=== PATIENT | male | born 2000 | race Caucasian/White ===

== ENCOUNTER 2024-12-30 03:54 | Inpatient (IN) | payer OTHER, SELFPAY ==
[2024-12-30] VITALS (30 sets, daily range): BP systolic 118–163; BP diastolic 61–148; PULSE 108; O2SAT 95; BMI 33.5; BMI 33.0
--- NOTE | 2024-12-30 00:26 | ED.GENMED ---
History of Present Illness
General
Chief Complaint: Breathing Problem
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
Exam Limitations: clinical condition
Time Seen by Provider: 12/30/24 00:16
History of Present Illness
History of Present Illness:
24-year-old male presents emergency department with right-sided chest pain and diaphoresis which has been present since 3 PM today. Patient does have a residential drug treatment facility. He used to do crystal meth. He states his last use was in
August.
Review of Systems
Review of Systems
Allergies reviewed?: Yes
All Other Systems: ROS reviewed and negative except as documented in HPI and ROS
Constitutional: Reports no symptoms
EENT: Reports no symptoms
Respiratory: Reports no symptoms
Cardiac: Reports chest pain and diaphoresis
ABD/GI: Reports no symptoms
: Reports no symptoms
Musculoskeletal: Reports no symptoms
Skin: Reports no symptoms
Neurological: Reports no symptoms
Endocrine: Reports no symptoms
Hematologic/Lymphatic: Reports no symptoms
Psychiatric: Reports no symptoms
Phy Exam
General Physical Exam
General Presentation: moderate distress and severe distress
General age: appears older than age
General Skin: warm and diaphoretic
General Habitus: normal
General Mental: alert
General Hydration: appears well hydrated
ENT Exam
ENT Exam: EOMI, pharynx normal, neck supple and normocephalic
Eye Exam
Eye Exam: PERRL, cornea clear and conjunctiva normal
Cardiovascular Exam
Cardiovascular Exam: regular rate/rhythm, no edema, no murmur and normal peripheral pulses
Pulmonary Exam
Pulmonary Exam: lungs clear, no respiratory distress, no rales, no crackles, no rhonchi, no stridor, no wheezing and no cough
Gastrointestinal Exam
Gastrointestinal Exam: normal bowel sounds, non tender, soft, no organomegaly, no pulsatile mass and non distended
Neurological Exam
Neurological Exam: alert, oriented x3, no motor deficits and speech normal
Musculoskeletal Exam
Musculoskeletal Exam: full ROM and no edema
Skin Exam
Skin Exam: normal color, warm/dry, no rash and no petechia
Psychiatric Exam
Psychiatric Exam: normal mood/affect
Sepsis
Sepsis Screening
Sepsis Assessment: Severe Sepsis
Sepsis Screening: Lactate >2mmol/L and Worsening O2 Saturation
Sepsis Screen
Sepsis Screen: Severe Sepsis
Date: 12/30/24
Time: 03:03
Course
Orders/Labs/Results
Orders:
Orders
12/30/24 00:19
Electrocardiogram (*1) Urgent
Reason for Study: Chest Pain
12/30/24 00:20
EKG- Treatment ONCE
12/30/24 00:23
CR Chest Portable - 1 View Urgent
Comment:
Reason For Exam: cp
Reason Study Needs to be Portable: Patient Unstable
12/30/24 00:26
Complete Blood Count/With Diff Urgent
Comprehensive Metabolic Panel Urgent
Lipase Urgent
Comment: ADD ON
Troponin I Urgent
12/30/24 00:34
CT Pe/abd/pel W Urgent
Reason For Exam: dyspnea, hypoxia, right cp
12/30/24 01:16
Electrocardiogram (*1) Urgent
Reason for Study: Bradycardia / Tachycardia
EKG- Treatment ONCE
12/30/24 01:28
Urinalysis Reflex To Culture Urgent
12/30/24 01:31
Add On- LAB Urgent
Tests Added?: lipase
Urine Drug Abuse Screen Urgent
12/30/24 01:52
Morphine Sulfate 4 mg .ROUTE .STK-MED ONE
12/30/24 01:53
Morphine Sulfate 4 mg IV NOW STA
12/30/24 02:03
Piperacillin/Tazo 4.5 Gram [Zosyn] 4.5 gram in 100 ml IV NOW
12/30/24 02:16
0.9% Sodium Chloride 1000 ml [Nss] 2,000 ml IV BOLUS
12/30/24 02:24
COVID-19 Antigen Urgent
Source: Nasal Swab
Lactic Acid Q4H
Comment: CANCEL 2nd LACTIC ACID IF 1st LACTIC ACID IS LESS THAN 2
Blood Culture Urgent
BUD Source: Blood/Venous
Specimen Description:
Influenza A+B Rapid Molecular Urgent
BUD Source: Nasal Swab
Specimen Description:
12/30/24 02:46
MRSA Screen Routine
BUD Source: Nose
Specimen Description:
12/30/24 02:48
Blood Culture Urgent
BUD Source: Blood/Venous
Specimen Description:
12/30/24 02:49
Admit/Transfer Patient As Directed
Co-Sign Provider:
Level of Care: Inpatient admission
Assign to:: IMU- Intermediate Care
Physician / Group: hospitalist
Diagnosis: necrotizing pneumonia
Reason for Hospitalization: pneumonia with hypoxia
Expected length of stay greater than two midnights?: Yes
ELOS- Estimated Length of Stay in days: 2
I certify the patient meets the requirements for IP care: Yes
PRN Pain Medication Management As Directed
May give lesser potent ordered pain med per pt: Yes
preference::
Protocol:: Medication orders for pain may be administered in a
manner that supports deferring to patient preference
when the pt is:
- Requesting an ordered lesser potent pain medication.
Least to most potent pain medications are defined
as: acetaminophen < NSAID < tramadol < opioids
(morphine, oxycodone, hydromorphone).
- Requesting a lesser dose of the same medication IF
ORDERED.
- Requesting a less intrusive route of administration
if both routes are prescribed by the provider (PO <
IV).
12/30/24 02:50
Code Status As Directed
Resuscitation Status: Full Code
12/30/24 06:15
Lactic Acid Q4H
Comment: CANCEL 2nd LACTIC ACID IF 1st LACTIC ACID IS LESS THAN 2
Abnormal Lab Results
12/30/24 12/30/24
00: 02:24
WBC 21.8 H 10^3/uL
(4.8-10.8)
RBC 4.68 L 10^6/uL
(4.70-6.10)
Plt Count 695 H 10^3/uL
(130-400)
Abs Immat Gran (auto) 1.2 H 10^3/uL
(0-0.05)
Absolute Neuts (auto) 17.3 H 10^3/uL
(1.4-6.5)
Absolute Monos (auto) 1.3 H 10^3/uL
(0.1-0.6)
Immature Gran % 5.4 H %
(0-0.5)
Neutrophils % 79.1 H %
(42.2-75.2)
Lymphocytes % 8.4 L %
(20.5-51.1)
Creatinine 0.6 L mg/dL
(0.7-1.3)
Glucose 246 H mg/dl
(70-99)
Lactic Acid 2.8 H mmol/L
(0.7-2.0)
ALT 187 H U/L
(0-50)
Alkaline Phosphatase 129 H U/L
(38-126)
12/30/24 00:26
12/30/24 00:26
Vital Signs
Initial and Last Documented VS:
Initial Vital Signs
Pulse Resp BP
87 25 159/94
12/30/24 00:18 12/30/24 00:18 12/30/24 00:18
Last Documented Vital Signs
Temp Pulse Resp BP Pulse Ox
99.2 F 124 47 142/86 95
12/30/24 02:11 12/30/24 02:45 12/30/24 02:45 12/30/24 02:00 12/30/24 02:45
MDM/Problems Addressed
Differential Diagnosis Includes:
Pneumonia, pulmonary embolus, cardiovascular issues, sepsis, septic shock, flu, COVID
MDM/Problems Addressed:
24-year-old male with right lower chest pain and difficulty breathing
Chronic conditions affecting care:
In recovery for crystal meth abuse
*Radiology
Radiology exam reviewed: radiology read reviewed
*Pulse Oximetry
Patient hypoxic: yes (89% on room air upon arrival)
*EKG
Interpreted by ED Provider?: Yes
EKG Intrepretation Date: 12/30/24
Interpretation: normal
Comparison EKG: no comparison EKG present
Heart Rate: 98
Rate: tachycardiac
Rhythm: sinus
Casey: left axis deviation
Interval: normal interval
QRS Pattern: normal QRS
*Tower Loader Operator Interpretation
Rate: tachycardiac
Heart Rate: 104
Rhythm: sinus and sinus tachycardia
*Critical Care Note
Total Time (30-74mins, 75-104mins- exclusive of procedures): 35
Update Note
Update Note:
Tylenol will not be given based on his liver function tests
ED Attending Note
-
Portions of this chart may have been created with voice recognition software.� Occasional wrong word or��sound alike� substitutions may have occurred due to the inherent limitations of voice recognition software.
Discharge Plan
Departure
Patient Disposition: Admit
Date of Disposition: 12/30/24
Time of Disposition: 03:03
Admit to: IMU
Presentation/result/management discussed w/ accepting MD/DO: Hospitalist
Condition: Serious
Discharge Problem:
Right lower lobe pneumonia, Sepsis
Prescriptions:
No Action
ropinirole 1 mg Tablet
1 mg PO BID
naltrexone 50 mg Tablet
50 mg PO DAILY
prednisone 20 mg Tablet
20 mg PO DAILY
benzonatate 100 mg Capsule
100 mg PO TID PRN (Reason: cough)
aripiprazole 10 mg Tablet
10 mg PO DAILY
atomoxetine [Strattera] 40 mg Capsule
40 mg PO DAILY
quetiapine [Seroquel] 50 mg Tablet
50 mg PO HS PRN (Reason: insomnia)
melatonin 10 mg Tablet
10 mg PO HS PRN (Reason: sleep)
Referrals:
Jesús Leon CRNP [Family Provider] -
Interventions
Interventions:
*General Assessment Last Done: 12/30/24 00:20
*Neglect/Abuse Screening Last Done: 12/30/24 00:24
*ED- Fall Risk Assessment Last Done: 12/30/24 00:24
*ED COVID-19 Vaccine History Last Done: 12/30/24 00:24
ED- Cardiac Assessment Last Done: 12/30/24 02:13
ED- Pulmonary Assessment Last Done: 12/30/24 02:13
Discharge Date and Time
Print Language: UGANDAN
[2024-12-30 00:43] LABS: Hematocrit 39.7 % (39.0-52.0); Hemoglobin 13.8 g/dL (13.0-18.0); Mean Corp Hgb Conc. 34.8 g/dL (33.0-37.0); Mean Corpuscular Hgb 29.5 pg (27.0-31.0); Mean Corpuscular Volume 84.8 fL (80.0-94.0); Mean Platelet Volume 9.5 fL (7.4-10.4); Platelet Count 695 10^3/uL (130-400); Red Blood Cell Count 4.68 10^6/uL (4.70-6.10); Red Cell Dist. Width 12.7 % (11.5-14.5); White Blood Cell Count 21.8 10^3/uL (4.8-10.8)
[2024-12-30 00:47] LABS: ALT (SGPT) 187 U/L (0-50); AST (SGOT) 55 U/L (17-59); Albumin 3.9 g/dl (3.5-5.0); Alkaline Phosphatase 129 U/L (38-126); Blood Urea Nitrogen 14 mg/dl (9-20); Calcium 9.2 mg/dl (8.4-10.2); Carbon Dioxide 22 mmol/L (22-30); Chloride 102 mmol/L (98-107); Estimated Creatinine Clearance > 125 ml/min; Glucose 246 mg/dl (70-99); Potassium 4.8 mmol/L (3.5-5.1); Sodium 136 mmol/L (135-145); Total Bilirubin 0.8 mg/dl (0.2-1.3); eGFR > 60.00
[2024-12-30 00:58] LABS: Troponin I < 0.012 ng/ml
[2024-12-30 01:28] LABS: % Basophils 0.6 % (0-2); % Eosinophils 0.6 % (0-6); % Immature Granulocytes 5.4 % (0-0.5); % Lymphocytes 8.4 % (20.5-51.1); % Monocytes 5.9 % (1.7-9.3); % Neutrophils 79.1 % (42.2-75.2); Absolute Basophils 0.1 10^3/uL (0-0.2); Absolute Eosinophils 0.1 10^3/uL (0-0.7); Absolute Immature Granulocytes 1.2 10^3/uL (0-0.05); Absolute Lymphocytes 1.8 10^3/uL (1.2-3.4); Absolute Monocytes 1.3 10^3/uL (0.1-0.6); Absolute Neutrophils 17.3 10^3/uL (1.4-6.5); Nucleated Red Blood Cells % 0 % (-)
[2024-12-30] MEDS: MORPHINE SULFATE 4 MG IV ×2 (01:53→10:46)
[2024-12-30 02:16] LABS: Lipase 97 U/L (23-300)
[2024-12-30] MEDS: ZOSYN 100 IV (02:28)
[2024-12-30] MEDS: NSS 2000 IV (02:31)
--- NOTE | 2024-12-30 02:37 | HPS.HSE ---
Family Physician
-
Family Physician: PEGGY Lambert
Chief Complaint
-
Shortness of breath
History of Present Illness
This is a 24-year-old male with past medical history of drug abuse currently in rehab and has been drug free for the last 4 months presents to the emergency department with worsening shortness of breath that started today.
Patient reports about 5 to 6 days of cough that is productive of yellow sputum. URIs. He reports numerous sick contacts at his [facility] with similar symptoms. Patient reported been doing okay up until today when he started having shortness of
breath as well as chest pain with inspiration and coughing. He reports the pain is sharp and localized to your right posterior lower chest. He denies any nausea or vomiting. Patient denies any history of COPD or asthma but reports regular tobacco
use. He denies any history of IV drug use. His drug of choice was methamphetamine. He denies any psychiatric history. He denies alcohol use. Patient denies any lower extremity swelling calf tenderness numbness or tingling.
In the emergency department he was afebrile, blood pressure was stable at 140/86 with a pulse rate of 130, oxygen saturation was 95% on 2 L. He is quite tachypneic with respiratory rates in the 30s and pursed lip breathing. X-ray shows a right
lower lobe infiltrate. CBC notable for a white count of 21.8 with 5% immature cells, normal hemoglobin and platelet counts. Electrolytes BUN and creatinine were normal. Glucose was slightly elevated at 240. He had mild elevation in ALT to 187
and alk phos to 129. ECG with sinus tachycardia. Troponin negative.
Medical History
Past Medical History
Past Medical History: Reports Other (History of drug abuse with amphetamine dependence, currently in rehab and last use was in August.)
Past Surgical History: Reports None
Social History
Tobacco: Smoker
Alcohol: None
Drug: Former User
Personal: Single
Living: Other (retirement)
Employment: Not Employed
Family History
Family History: Early CAD (Father with CAD who had [place] and at age 50.)
Allergies / Home Medications
Allergies reflects when Allergies were last updated in [facility].
Home Medications with original date entered in [facility]
Allergy/Medication List:
Allergies
Allergy/AdvReac Type Severity Reaction Status Date / Time
No Known Allergies Allergy Unverified 12/30/24 00:19
Home Medications
aripiprazole 10 mg tablet 10 mg PO DAILY 12/30/24
atomoxetine 40 mg capsule (Strattera) 40 mg PO DAILY 12/30/24
benzonatate 100 mg capsule 100 mg PO TID PRN cough 12/30/24
melatonin 10 mg tablet 10 mg PO HS PRN sleep 12/30/24
naltrexone 50 mg tablet 50 mg PO DAILY 12/30/24
prednisone 20 mg tablet 20 mg PO DAILY 12/30/24
quetiapine 50 mg tablet (Seroquel) 50 mg PO HS PRN insomnia 12/30/24
ropinirole 1 mg tablet 1 mg PO BID 12/30/24
Review of Systems
-
History Source: Patient
Constitutional: Reports No Symptoms
Respiratory: Reports Cough and Trouble Breathing
Cardiac: Reports No Symptoms
Abdomen/GI: Reports No Symptoms
: Reports No Symptoms
Musculoskeletal: Reports No Symptoms
Skin: Reports No Symptoms
Neurological: Reports No Symptoms
Endocrine: Reports No Symptoms
Hematologic/Lymphatic: Reports No Symptoms
Psych: Reports No Symptoms
Physical Exam
Vital Signs
Vital Signs
Temp Pulse Resp BP Pulse Ox
99.2 F 123 56 142/86 96
12/30/24 02:11 12/30/24 02:00 12/30/24 02:00 12/30/24 02:00 12/30/24 02:00
Physical Exam
General: Well Developed, Well Nourished and Respiratory Distress
HEENT: NormoCephalic, Anicteric, Moist mucous membranes and Atraumatic
Respiratory: Clear and Accessory Resp Muscle Use
Cardiac: S1/S2 and Tachycardia
Breast: Deferred by me
GI: Soft, Non Tender, Non Distended and Normal Bowel Sounds
Rectal: Deferred by Provider
Genito-urinary: Deferred by me
Musculoskeletal: No Clubbing, No Cyanosis and No Edema
Skin: Warm
Neuro: AO x 3 and Nonfocal/grossly intact
Hematologic/Lymphatic: No Lymphadenopathy
Psych: Calm
Laboratory Results
-
12/30/24 00:26
12/30/24:
Laboratory Results
Total Bilirubin 0.8 mg/dl (0.2-1.3) 12/30/24:
AST 55 U/L (17-59) 12/30/24:
ALT 187 U/L (0-50) H 12/30/24:
Alkaline Phosphatase 129 U/L (38-126) H 12/30/24:
Troponin I < 0.012 ng/ml 12/30/24 00:
Lipase 97 U/L (23-300) 12/30/24 00:
Data Reviewed
-
Diagnostic Radiology: Image Personally Visualized and interpreted
CT Scan: Report Reviewed by me
Medical Tests (Nuc Med, Echo, EKG etc): Image Personally Visualized and interpreted
Lab Data: Labs Reviewed by me
Old Records: Reviewed
Impression/Plan
-
IMPRESSION:
24-year-old who was in rehab for meth presents to the emergency department with shortness of breath, hypoxia and chest pain. Imaging shows a right lower lobe consolidation. He does have increased work of breathing and diaphoretic. Labs notable
for leukocytosis of 21,000 with immature cells. Hemodynamically stable. Electrolyte BUN/creatinine were normal. He has a mild elevation in ALT and alk phos only. Overall picture consistent with severe community-acquired pneumonia. Risk factors
include living in [facility]. He has no history of IV drug use. CT scan concerning for
PLAN:
1. Community acquired pneumonia - Necrotizing pneumonia. Hypoxic, RLL infiltrates, leukocytosis with left shift and bands. Small pneumothorax. Very high work of breathing with rapid shallow breathing likely from pain and splinting. Symptoms began
a week ago and cannot rule out a post-viral pneumonia
- admit to [facility]
- blood cultures and respiratory panel
- getting legionella urinary ag
- mrsa swab
- Unasyn + Vancomycin
- supportive measures with oxygen, nebs antitussive and pain control with incentive spirometry.
- rule out PE
- will monitor for complications of pneumonia
- Pulm consultation
2. H/O Methamphethamine use
- conitnue abilify, ropinirole and naltrexone.
- continue atomoxetine
3. Transaminitis - Elevated ALT only. Denies any ETOH. Has right sided lower thoracic pain but not abdominal pain
- check ruq u/s rule out cholelithiasis/choledocholithiasis
- check cpk, trend lfts
- check lipid panel
DVT PPX - lovenox sq
Code status - full code
[2024-12-30 02:55] LABS: Lactic Acid 2.8 mmol/L (0.7-2.0)
[2024-12-30] MEDS: TORADOL 15 MG IV ×3 (03:10→13:43)
[2024-12-30 03:36] LABS: COVID-19 Antigen Negative (Negative)
[2024-12-30 04:18] LABS: Urine Albumin 2+ (Neg - Trace); Urine Bilirubin Negative (Negative); Urine Character Clear (Clear); Urine Color Yellow; Urine Glucose Negative (Negative); Urine Ketone Negative (Negative); Urine Leukocyte Negative (Negative); Urine Nitrite Negative (Negative); Urine Occult Blood Negative (Negative); Urine Specific Gravity 1.015 (<1.030); Urine Urobilinogen 1+ (Neg - 1+)
[2024-12-30 04:39] LABS: Amphetamines Negative (Negative); Barbiturates Negative (Negative); Benzodiazepines Negative (Negative); Buprenorphine Negative (Negative); Marijuana Negative (Negative); Methadone Negative (Negative); Methamphetamines Negative (Negative); Phencyclidine Negative (Negative)
[2024-12-30 04:40] LABS: Cocaine Negative (Negative); Opiates Positive (Negative); Tricyclic Antidepressants Negative (Negative)
[2024-12-30 04:58] LABS: Fentanyl, Urine Negative (Negative)
[2024-12-30 05:02] LABS: Urine Amorphous Seen
[2024-12-30 05:13] LABS: Urine Bacteria Few (Negative)
[2024-12-30] MEDS: TYLENOL 650 MG PO ×3 (05:14→15:56)
[2024-12-30 05:15] LABS: Hematocrit 35.9 % (39.0-52.0); Hemoglobin 12.5 g/dL (13.0-18.0); Mean Corp Hgb Conc. 34.8 g/dL (33.0-37.0); Mean Corpuscular Hgb 29.6 pg (27.0-31.0); Mean Corpuscular Volume 84.9 fL (80.0-94.0); Mean Platelet Volume 9.3 fL (7.4-10.4); Platelet Count 559 10^3/uL (130-400); Red Blood Cell Count 4.23 10^6/uL (4.70-6.10); Red Cell Dist. Width 12.8 % (11.5-14.5)
[2024-12-30] MEDS: NSS 1000 IV ×2 (05:15→15:57)
[2024-12-30] MEDS: ROBITUSSIN DM 10 ML PO ×2 (05:15→16:25)
[2024-12-30 05:47] LABS: Lactic Acid 1.8 mmol/L (0.7-2.0)
[2024-12-30 05:49] LABS: Blood Urea Nitrogen 12 mg/dl (9-20); Calcium 8.6 mg/dl (8.4-10.2); Carbon Dioxide 20 mmol/L (22-30); Chloride 107 mmol/L (98-107); Estimated Creatinine Clearance > 125 ml/min; Glucose 121 mg/dl (70-99); Potassium 4.3 mmol/L (3.5-5.1); Sodium 139 mmol/L (135-145); eGFR > 60.00
[2024-12-30 05:59] LABS: ALT (SGPT) 147 U/L (0-50); AST (SGOT) 37 U/L (17-59); Albumin 3.5 g/dl (3.5-5.0); Alkaline Phosphatase 110 U/L (38-126); HDL Cholesterol 21 mg/dl; LDL Cholesterol, Calculated 112 mg/dl; Total Bilirubin 0.7 mg/dl (0.2-1.3); Total Cholesterol 151 mg/dl (50-199); Triglyceride 93 mg/dl (10-149); Very Low Density Lipoprotein 18 mg/dl (0-30)
[2024-12-30] MEDS: VANCOCIN 540 MG IV (06:17)
--- NOTE | 2024-12-30 07:16 | PTCARENOTE ---
Pt admit from ED to ICU ~0500. Pt diaphoretic, tachypneic, and tachycardic. RR 30-50. AAOx4. Labs drawn. 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 Pt c/o pain only on cough about 3/10. PRN tylenol - see MAR. Educated pt on plan of care, pt verbalizes
understanding. Oriented pt to unit. NSS and abx infusing as ordered.
[2024-12-30] MEDS: MUCINEX 600 MG PO ×2 (07:43→20:21)
[2024-12-30] MEDS: REQUIP 1 MG PO ×2 (07:43→20:21)
[2024-12-30] MEDS: ABILIFY 10 MG PO (07:43)
[2024-12-30] MEDS: NICODERM TRANSDERMAL 21 MG TRANSDERM (07:43)
[2024-12-30] MEDS: COLACE PO ×3 (07:43→20:21)
--- NOTE | 2024-12-30 08:16 | CON.PUL ---
Addendum entered and electronically signed by Jamal Ventura MD 12/30/24 16:28:
Patient reexamined later in the day around 4 PM. Saturating well however continues to be somewhat tachypneic with respiratory rate in the low 30s.
- Considering severity of pneumonia, add prednisone daily daily for 5 days
- Follow-up CT chest in a.m. to evaluate for any developing pleural effusion
Original Note:
Consultation
Consultation Request
Date/Time Consultation Requested: 12/30/2024
Date/Time Consultation Performed: 12/30/2024
Requesting Provider: Mehul Merritt
Performing Provider: Jamal Ventura
Reason for Consultation: Necrotizing pneumonia
Medical History
-
Chief Complaint: Cough. pleuritic pain
History of Present Illness:
Patient is a very pleasant 24-year-old gentleman with history of drug use in the past, reportedly sober over the last 4 months who presents to emergency room from a rehab facility with worsening shortness of breath. Patient reports about 5 to 6
days of cough with yellowish expectoration. Reports some flulike symptoms prior to that. Does report history of some sick contacts at the facility where he lives. In the emergency room he also was noted to have some pleuritic discomfort on the
right side. He had a CT performed which was suggestive of necrotizing pneumonia in the right lower lobe along with small amount of gas within pleural effusion. Patient was admitted to the hospital and started on IV antibiotics. Pulmonary
consultation was requested for further input.
Patient denies any history of drug use in the last 4 months. No reported history of syncope per patient. No episodes of aspiration, nausea vomiting etc.
Past Medical History: Reports Other (History of drug abuse with amphetamine dependence, currently in rehab and last use was in August.)
Past Surgical History: Reports None
Social History
Tobacco: Smoker. Reported history of vaping almost daily.
Alcohol: None
Drug: Former User
Personal: Single
Living: Other (residential)
Employment: Not Employed
Family History
Family History: Early CAD (Father with CAD who had PR and at age 50.)
Allergies / Home Medications
Allergies
Allergy/AdvReac Type Severity Reaction Status Date / Time
No Known Allergies Allergy Unverified 12/30/24 00:19
Home Medications
�Medication �Instructions �Recorded �Confirmed �Last Taken �Type
aripiprazole 10 mg tablet 10 mg PO DAILY 12/30/24 12/30/24 Unknown History
atomoxetine 40 mg capsule 40 mg PO DAILY 12/30/24 12/30/24 Unknown History
(Strattera)
benzonatate 100 mg capsule 100 mg PO TID PRN cough 12/30/24 12/30/24 Unknown History
melatonin 10 mg tablet 10 mg PO HS PRN sleep 12/30/24 12/30/24 Unknown History
naltrexone 50 mg tablet 50 mg PO DAILY 12/30/24 12/30/24 Unknown History
prednisone 20 mg tablet 20 mg PO DAILY 12/30/24 12/30/24 Unknown History
quetiapine 50 mg tablet (Seroquel) 50 mg PO HS PRN insomnia 12/30/24 12/30/24 Unknown History
ropinirole 1 mg tablet 1 mg PO BID 12/30/24 12/30/24 Unknown History
Review of Systems
-
Hematologic/Lymphatic: Other (All 14 systems reviewed and negative except as stated above in the history of present illness. Reported right-sided pleuritic chest discomfort and cough.)
Vitals / Labs / Diagnostic Testing
Vital Signs
Temp Pulse Resp BP Pulse Ox
99.7 F 98 34 124/68 96
12/30/24 05:30 12/30/24 06:30 12/30/24 06:30 12/30/24 06:30 12/30/24 06:43
Lab Data
12/30/24 04:58
12/30/24 04:58
Microbiology
12/30/24 02:24 Nasal Swab Influenza Types A & B (DAVE) - Final
Negative for Influenza A & B, NAAT
Negative results must be combined with clinical observations
and patient history.
Nucleic Acid Amplification test (NAAT)performed on the
[employer] NOW platform.
Diagnostic Testing:
Physical Exam
-
HEENT: Normocephalic
Cardiovascular: S1/S2
Respiratory: Clear and Other (Decreased air entry in the right lower lobe, otherwise unremarkable.)
GI: Soft and Non Distended
Neurology: Awake and Alert
Skin: Warm
General: Comfortable
Assessment
-
#1. Right lower lobe necrotizing pneumonia. Also noted trace right effusion with some gas within it. No definitive pneumothorax noted. Patient denies any episode of nausea, vomiting or syncope. Aspiration pneumonia is certainly a concern with
prior history of drug use as well as location of the infiltrate.
- Check sputum cultures, Legionella and strep pneumo antigen.
- Influenza A, B-, COVID-19 screen negative
- Continue IV vancomycin and Unasyn. Check nasal MRSA screen
#2. Right sided pleural effusion, para-pneumonic vs developing empyema with traces of air noted on CT. Collection is fairly small on CT. No definitive pneumothorax
- CXR today shows small layering effusion,
- I performed a bedside [id number] ultrasound, only a trace pleural effusion noted on the right side with extensive phlegmon. Not enough fluid for safe drainage right now. But I suspect patient might develop an enlarging parapneumonic effusion
versus empyema, will proceed with daily imaging and [id number] ultrasound. If enlarges, will place chest tube.
- Follow-up chest x-ray and POCUS in a.m.
- Test for HIV
- Add Toradol for pleuritic discomfort
Pulmonary team will follow.
Total time spent on this consultation/encounter __81__ minutes which includes review of history, physical exam, medications, laboratory data, personal review of imaging, extensive review of outpatient records, discussion with care team and
respiratory therapy.
Data:
CT-PE 12/2024: 1. No large central pulmonary embolism. Evaluation of peripheral pulmonary arteries is limited by patient respiratory motion artifact.
2. Severe right lower lobe pneumonia, with areas of internal necrosis and cavitation.
3. Small associated right pleural effusion. Small amount of gas within the right pleural effusion.
4. Right hilar lymphadenopathy, likely reactive.
5. Evidence of prior granulomatous disease.
--- NOTE | 2024-12-30 08:51 | PHA.VAN.IN ---
Addendum entered and electronically signed by Anuradha Sigala ([place]) [facility] 12/30/24 09:02:
Correction on starting time for Maintenance Regimen: Vanco 1250mg Q8H starting 2200
Original Note:
Assessment
- Assessment
Renal Function: Appears similar to baseline (0.6)
Maximum Temperature: 103
Concomitant Antimicrobials: Ampicillin/Sulbactam
AUC Dosing Plan
- Dosing Variables
Dosing Weight (kg): 107.4
Dosing CrCl (ml/min): 125
Vd coefficient (L/kg): 0.6
- Empiric Dosing
Initial / Loading Dose: Vanco 2000mg loading administered 12/30/24 0617
Maintenance Regimen: Vanco 1250mg Q8H Starting 1800
Estimated AUC (mcg*h/mL): 582
Estimated Peak (mcg*h/mL): 33.5
Estimated Trough (mcg/ml): 16.6
Estimated Half Life (H): 6.4
Based on the patient's history, may not follow population PK
- Monitoring
No levels ordered at this time: Consider in the next few days
Pharmacokinetics Vancomycin I
- -
Patient Age: 24
Patient Sex: Male
Vancomycin Day #: 1
Indication: Pulmonary/Respiratory
Requesting Provider: Shaina
Pertinent Antimicrobial Allergies:
No known drug allergies
Height / Weight:
Height 5 ft 11 in
Actual Weight 107.4 kg
- Vital Signs / Lab Results
Temp Pulse Resp BP Pulse Ox
99.7 F 98 34 124/68 96
12/30/24 05:30 12/30/24 06:30 12/30/24 06:30 12/30/24 06:30 12/30/24 06:43
Lab Results - Hematology
12/30/24 12/30/24
00:26 04:58
WBC 21.8 H 23.0 H
Lab Results - Chemistry
12/30/24 12/30/24 12/30/24
00:26 04:58 06:00
BUN 14 12
Creatinine 0.6 L 0.6 L
Estimated Creat Clear > 125 > 125
Albumin 3.9 3.5 Cancelled
12/30/24 12/30/24
02:24 04:59
Lactic Acid 2.8 H 1.8
Lab Results - Urine
12/30/24
04:02
Urine Nitrite (Reflex) Negative
Leukocyte Esterase Rfl Negative
Urine WBC (Reflex) 6-10
Ur Squamous Epith Cells 11-15
Urine Bacteria (Reflex) Few A
Microbiology Results
12/30/24 07:52 Legionella Urinary Antigen - Final
Urine Negative for Legionella pneumophila Serogroup 1 antigen.
A negative result does not rule out the possiblity of
Legionella infection due to other serogroups or species of
Legionella. Clinical correlation is recommended.
Streptococcus pneumoniae Antigen (M - Final
Negative for Streptococcus pneumoniae antigen.
A negative result does not exclude infection with
Streptococcus pneumoniae. Clinical correlation is
recommended.
12/30/24 02:24 Influenza Types A & B (DAVE) - Final
Nasal Swab Negative for Influenza A & B, NAAT
Negative results must be combined with clinical observations
and patient history.
Nucleic Acid Amplification test (NAAT)performed on the
[employer] platform.
[2024-12-30] MEDS: UNASYN IV ×3 (08:55→20:21)
--- NOTE | 2024-12-30 09:07 | PTCARENOTE ---
report received, assessments per work list. Dr Ventura at bedside to assess patient. patient c/o pain, tachypneic. resp rate 30-50. coarse breath sounds left, very diminished right lung, absent base. cough, moist non productive. increased pain with
coughing and deep breathing. medicated with toradol with some relief. patient affect flat. oriented. abdomen soft, denies nausea. using urinal angelo urine. call moser in reach. reviewed plan of care
--- NOTE | 2024-12-30 09:20 | W.PN.HOSP.TC ---
Today's Communication/Plan
-
IV antibiotics.
Assessment / Plan
Assessment / Plan
Physical exam:
General: Acutely ill. Toxic appearance.
HEENT: Normocephalic, Atraumatic and Moist Mucous Membranes
Respiratory: Decreased breath sounds on the right side; Negative Wheezes, Rales or Rhonchi
Cardiac: Regular Rhythm, tachycardic, and S1/S2
GI: Soft, Nontender and Nondistended
Musculoskeletal: No Clubbing, No Cyanosis and No Edema
Neuro: Awake, Alert and Oriented, no neurological deficits
Psych: Calm
A/P:
Sepsis due to pneumonia:
Patient with tachycardia, tachypnea, leukocytosis, increased lactate. Source is necrotizing pneumonia and rule out empyema.
IV fluid
IV antibiotics
Monitor clinical progress
Right lower lobe necrotizing pneumonia versus aspiration pneumonia:
Continue broad-spectrum antibiotics
Check sputum cultures, Legionella antigen, strep
Check MRSA screen
HIV testing
Bronchodilators as needed
Pain control
Right-sided pleural effusion concerns for empyema versus parapneumonic effusion:
Monitor serial ultrasound
If enlarged pleural fluid plan for thoracentesis and/or chest tube
History of polysubstance abuse:
On atomoxetine and Requip
On Abilify
On Seroquel as needed
Nicotine use disorder:
On nicotine patch
DVT prophylaxis:
Lovenox SQ
CODE STATUS:
Full code
Total Critical Care Time__45___ minutes. I was immediately available to the patient and staff. I personally examined, reviewed labs, diagnostic images/reports, interpretations, treatment plans, discussed patient care with other providers and
family or caregivers (if patient is unable to make decisions), entered orders as appropriate and documented the medical record.
Anticipated Discharge: > 48 hours
Subjective/Interval History
-
Date of Service: December 30, 2024
Patient hypoxic, tachycardic, short of breath, febrile. He does have cough with yellow sputum production.
Objective Data
-
Labs:
Laboratory Results
12/30/24 12/30/24 12/30/24
00:26 04:58 06:00
WBC 21.8 H 23.0 H
Hgb 13.8 12.5 L
Hct 39.7 35.9 L
Plt Count 695 H 559 H
Sodium 136 139
Potassium 4.8 4.3
Chloride 102 107
Carbon Dioxide 22 20 L
BUN 14 12
Creatinine 0.6 L 0.6 L
Glucose 246 H 121 H
Calcium 9.2 8.6
Total Bilirubin 0.8 0.7 Cancelled
AST 55 37 Cancelled
ALT 187 H 147 H Cancelled
Alkaline Phosphatase 129 H 110 Cancelled
Vital Signs:
Vital Signs
Temp Pulse Resp BP Pulse Ox
100.5 F H 101 43 123/73 96
12/30/24 07:30 12/30/24 09:00 12/30/24 09:00 12/30/24 09:00 12/30/24 09:00
I&O
12/29/24 12/30/24 12/31/24
06:59 06:59 06:59
Intake Total 900 / 900
Output Total 300 / 300 300 / 300
Balance -300 / -300 600 / 600
--- NOTE | 2024-12-30 11:41 | PTCARENOTE ---
patient reassessed. temp 103.1. tylenol administered. abdominal ultrasound completed. expectorating thick yellow sputum. remains tachypneic, respiratory rate 50's with exertions. 30's at rest.
--- NOTE | 2024-12-30 13:42 | CM ---
CM following re: discharge planning.
Reviewed pt's chart, met with pt.
Pt is a 24 year old male, admitted with primary dx of Community acquired pneumonia - Necrotizing pneumonia.
Pt reports he lives at [facility], has been living there for 4 months, has 2 children, spouse. 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 Pt reports he will return back to sober house
with resumptions of IOP at [facility]. Pt stated that recovery house servant Juan Carlos will [id number] at discharge.
PCP: Acosta Leon
Pharmacy: [facility]
D/C plan: return back to [facility].
CM will follow with discharge plan updates as hospitalization progresses
[2024-12-30] MEDS: DELTASONE 40 MG PO (15:56)
[2024-12-30] MEDS: LOVENOX 40 MG SC (16:25)
--- NOTE | 2024-12-30 16:59 | PTCARENOTE ---
patient reassessed. febrile, tylenol and pain medication administration per nov. assisted with pm care. poor po intake. remains tachypneic, shallow respirations. continues to expectorate large amount thick yellow sputum. Dr Ventura at bedside to
reassess via ultrasound. updated patient mother on phone. coughing and deep breathing encouraged. oob to chair. call moser in reach
[2024-12-30] MEDS: VANCOCIN 275 MG IV (23:10)
--- NOTE | 2024-12-30 23:47 | PTCARENOTE ---
Pt received at 19:00, drowsy but easily arousbale to verbal stimuli. SR-stach, palpable pulses. 2L NC, pulse ox 94%. RR mid 20s - 30s. Moist weak cough, states SOB has improved. +bowel sounds, no BM. Voids in urinal, yellow urine. Safe environment
maintained, call moser within reach, plan of care ongoing.
[2024-12-31] VITALS (12 sets, daily range): BP systolic 123–154; BP diastolic 65–90; BMI 33.2
[2024-12-31] MEDS: MORPHINE SULFATE 4 MG IV ×3 (00:51→20:42)
--- NOTE | 2024-12-31 00:58 | PTCARENOTE ---
Pt c/o pain 8/10 with coughing in chest and back, RR increased to the 40s. Pt given PRN morphine, RR now low 30s and patient resting comfortably in the bed.
[2024-12-31] MEDS: NSS 1000 IV (02:16)
[2024-12-31] MEDS: TORADOL 15 MG IV ×3 (02:16→18:01)
[2024-12-31] MEDS: UNASYN IV ×4 (02:17→20:31)
[2024-12-31 04:15] LABS: % Basophils 0.4 % (0-2); % Eosinophils 0.2 % (0-6); % Lymphocytes 4.6 % (20.5-51.1); % Monocytes 5.5 % (1.7-9.3); % Neutrophils 86.3 % (42.2-75.2); Absolute Basophils 0.1 10^3/uL (0-0.2); Absolute Eosinophils 0.1 10^3/uL (0-0.7); Absolute Immature Granulocytes 1.1 10^3/uL (0-0.05); Absolute Lymphocytes 1.7 10^3/uL (1.2-3.4); Absolute Neutrophils 31.4 10^3/uL (1.4-6.5); Hematocrit 35.1 % (39.0-52.0); Hemoglobin 11.8 g/dL (13.0-18.0); Mean Corp Hgb Conc. 33.6 g/dL (33.0-37.0); Mean Corpuscular Hgb 28.7 pg (27.0-31.0); Mean Corpuscular Volume 85.4 fL (80.0-94.0); Mean Platelet Volume 8.9 fL (7.4-10.4); Nucleated Red Blood Cells % 0 % (-); Platelet Count 541 10^3/uL (130-400); Red Blood Cell Count 4.11 10^6/uL (4.70-6.10); Red Cell Dist. Width 13.1 % (11.5-14.5); White Blood Cell Count 36.4 10^3/uL (4.8-10.8)
[2024-12-31 05:07] LABS: Blood Urea Nitrogen 8 mg/dl (9-20); Calcium 8.3 mg/dl (8.4-10.2); Carbon Dioxide 23 mmol/L (22-30); Chloride 105 mmol/L (98-107); Estimated Creatinine Clearance > 125 ml/min; Glucose 122 mg/dl (70-99); Sodium 139 mmol/L (135-145); eGFR > 60.00
[2024-12-31] MEDS: VANCOCIN 275 MG IV ×3 (07:05→22:00)
--- NOTE | 2024-12-31 07:31 | W.PN.PUL3 ---
Today's Communication / Plan
-
- Right-sided pigtail catheter placed, follow-up on pleural fluid studies
- Follow-up chest x-ray in a.m.
Assessment
-
Patient is a very pleasant 24-year-old gentleman with history of drug use in the past, reportedly sober over the last 4 months who presents to emergency room from a rehab facility with worsening shortness of breath. Patient reports about 5 to 6
days of cough with yellowish expectoration. Reports some flulike symptoms prior to that. Does report history of some sick contacts at the facility where he lives. In the emergency room he also was noted to have some pleuritic discomfort on the
right side. He had a CT performed which was suggestive of necrotizing pneumonia in the right lower lobe along with small amount of gas within pleural effusion. Patient was admitted to the hospital and started on IV antibiotics. Pulmonary
consultation was requested for further input.
#1. Right lower lobe necrotizing pneumonia. Also noted trace right effusion with some gas within it. No definitive pneumothorax noted. Patient denies any episode of nausea, vomiting or syncope. Aspiration pneumonia is certainly a concern with
prior history of drug use as well as location of the infiltrate.
- Checking sputum cultures, Legionella and strep pneumo antigen.
- Influenza A, B-, COVID-19 screen negative
- Continue IV vancomycin and Unasyn. Check nasal MRSA screen
#2. Worsneing Right sided pleural effusion, para-pneumonic vs developing empyema with traces of air noted on CT. in view of increasing shortness of breath, follow-up CT was performed today which showed significant worsening of effusion with near
complete collapse of right lung.
- Thoracentesis was initially planned, however on [id number] ultrasound loculations were noted and hence decision was made to switch to chest tube, particularly with high pretest probability of an underlying infection
- 14 [place] pigtail catheter placed at bedside, with 400 mL of purulent appearing fluid immediately aspirated. Sent fluid for cell count, protein, LDH, pH, glucose, Gram stain and cultures. Continue suction dependently depending upon response,
might need tPA DNase.
- Follow-up chest x-ray, pain control, follow-up on pleural fluid studies
Pulmonary team will follow.
Total time spent on this consultation/encounter __54__ minutes which includes review of history, physical exam, medications, laboratory data, personal review of imaging, extensive review of outpatient records, discussion with care team and
respiratory therapy.
Data:
CT-PE 12/2024: 1. No large central pulmonary embolism. Evaluation of peripheral pulmonary arteries is limited by patient respiratory motion artifact.
2. Severe right lower lobe pneumonia, with areas of internal necrosis and cavitation.
3. Small associated right pleural effusion. Small amount of gas within the right pleural effusion.
4. Right hilar lymphadenopathy, likely reactive.
5. Evidence of prior granulomatous disease.
Subjective Data
-
Date of Service:
Date of Service: December 31, 2024
Subjective:
Patient noted to feel more short of breath with persistent tachypnea. Patient reported that he feels more short of breath compared to day before.
Review of Systems
Genitourinary: Other (Increase shortness of breath, continued cough with expectoration.)
Objective Data
Data Reviewed
Vital Signs / I&O / Oxygen:
Vital Signs
Temp Pulse Resp BP Pulse Ox
99.1 F 101 31 130/70 94
12/31/24 03:38 12/31/24 05:00 12/31/24 05:00 12/31/24 04:00 12/31/24 05:00
Intake and Output
12/30/24 12/31/24 01/01/25
06:59 06:59 06:59
Intake Total 4046 / 4046
Output Total 300 / 300 1600 / 1600
Balance -300 / -300 2446 / 2446
SaO2 94
Nasal Cannula flow liters per 2
minute
Physical Exam
General: Respiratory Distress (Mild respiratory distress with tachypnea)
HEENT: Normocephalic
Cardiovascular: S1-S2 (Sinus tachycardia)
Respiratory: Rhonchi and Other (Complaints decreased air entry on the right side, no tachypnea. No accessory muscle use however)
GI: Soft and Non Distended
Neurology: Awake, Alert and Oriented
Skin: Warm
Labs/Micro/Reports
Lab Data
12/31/24 03:54
12/31/24 03:54
Microbiology
12/30/24 02:57 Blood/Venous Blood Culture - Preliminary
No Growth in 24 hours- Final report to follow
12/30/24 02:24 Blood/Venous Blood Culture - Preliminary
No Growth in 24 hours- Final report to follow
12/30/24 09:55 Sputum Gram Stain - Preliminary
12/30/24 07:52 Urine Legionella Urinary Antigen - Final
Negative for Legionella pneumophila Serogroup 1 antigen.
A negative result does not rule out the possiblity of
Legionella infection due to other serogroups or species of
Legionella. Clinical correlation is recommended.
12/30/24 07:52 Urine Streptococcus pneumoniae Antigen (M - Final
Negative for Streptococcus pneumoniae antigen.
A negative result does not exclude infection with
Streptococcus pneumoniae. Clinical correlation is
recommended.
12/30/24 02:24 Nasal Swab Influenza Types A & B (DAVE) - Final
Negative for Influenza A & B, NAAT
Negative results must be combined with clinical observations
and patient history.
Nucleic Acid Amplification test (NAAT)performed on the
[employer] platform.
[2024-12-31] MEDS: MUCINEX 600 MG PO ×2 (07:54→20:31)
[2024-12-31] MEDS: DELTASONE 40 MG PO (07:54)
[2024-12-31] MEDS: NICODERM TRANSDERMAL 21 MG TRANSDERM (07:54)
[2024-12-31] MEDS: ABILIFY 10 MG PO (07:54)
[2024-12-31] MEDS: REQUIP 1 MG PO ×2 (07:54→20:31)
[2024-12-31] MEDS: TYLENOL 650 MG PO (07:57)
[2024-12-31] MEDS: COLACE PO ×2 (08:04→20:22)
[2024-12-31 09:27] LABS: HIV Combo Negative (Negative)
--- NOTE | 2024-12-31 10:13 | PHA.VAN.FU ---
Vancomycin Assessment / Plan
- Assessment
Renal Function: Stable
WBC's are: Trending Up
In the past 24 hrs, patient has been: Febrile (Tmax = 102.7)
Concomitant Antimicrobials: Ampicillin-sulbactam
- Dosing Plan
Continue: Vanc 1250mg IV Q8H
- Monitoring Plan
Peak Level: 01/01 at 0100
Trough Level: 01/01 at 0530
- Follow Up
Pharmacy will continue to follow.
Vancomycin Follow UP
- -
Patient Age: 24
Patient Sex: Male
Vancomycin Day #: 2
Indication: Pulmonary/Respiratory
Requesting Provider: Shaina
Pertinent Antimicrobial Allergies:
No known drug allergies
Height / Weight:
Height 5 ft 11 in
Actual Weight 106.8 kg
- Vital Signs / Lab Results
Temp Pulse Resp BP Pulse Ox
102.7 F H 124 42 154/90 94
12/31/24 07:45 12/31/24 08:00 12/31/24 08:00 12/31/24 08:00 12/31/24 09:38
Lab Results - Hematology
12/30/24 12/30/24 12/31/24
00: 04:58 03:54
WBC 21.8 H 23.0 H 36.4 H
Lab Results - Chemistry
12/30/24 12/30/24 12/30/24
00: 04:58 06:00
BUN 14 12
Creatinine 0.6 L 0.6 L
Estimated Creat Clear > 125 > 125
Albumin 3.9 3.5 Cancelled
12/31/24
03:54
BUN 8 L
Creatinine 0.5 L
Estimated Creat Clear > 125
Albumin
12/30/24 12/30/24
02:24 04:59
Lactic Acid 2.8 H 1.8
Microbiology Results
12/30/24 09:55 Respiratory Culture - Preliminary
Sputum Gram Stain - Preliminary
12/30/24 04:58 MRSA Screen - Final
Nose No Methicillin Resistant Staphylococcus aureus isolated.
12/30/24 02:57 Blood Culture - Preliminary
Blood/Venous No Growth in 24 hours- Final report to follow
12/30/24 02:24 Blood Culture - Preliminary
Blood/Venous No Growth in 24 hours- Final report to follow
12/30/24 07:52 Legionella Urinary Antigen - Final
Urine Negative for Legionella pneumophila Serogroup 1 antigen.
A negative result does not rule out the possiblity of
Legionella infection due to other serogroups or species of
Legionella. Clinical correlation is recommended.
Streptococcus pneumoniae Antigen (M - Final
Negative for Streptococcus pneumoniae antigen.
A negative result does not exclude infection with
Streptococcus pneumoniae. Clinical correlation is
recommended.
12/30/24 02:24 Influenza Types A & B (DAVE) - Final
Nasal Swab Negative for Influenza A & B, NAAT
Negative results must be combined with clinical observations
and patient history.
Nucleic Acid Amplification test (NAAT)performed on the
[employer] platform.
[2024-12-31] MEDS: MORPHINE SULFATE 2 MG IV (10:35)
--- NOTE | 2024-12-31 10:36 | W.PN.HOSP.TC ---
Addendum entered and electronically signed by Tom Reyna MD 12/31/24 15:03:
Improvement noticed on vital signs after chest tube placement today. Of note patient also initiated on steroids since last evening by pulmonary.
Original Note:
Today's Communication/Plan
-
Antibiotics. Chest tube.
Assessment / Plan
Assessment / Plan
Physical exam:
General: Acutely ill. Toxic appearance.
HEENT: Normocephalic, Atraumatic and Moist Mucous Membranes
Respiratory: Decreased breath sounds on the right side; Negative Wheezes, Rales or Rhonchi
Cardiac: Regular Rhythm, tachycardic, and S1/S2
GI: Soft, Nontender and Nondistended
Musculoskeletal: No Clubbing, No Cyanosis and No Edema
Neuro: Awake, Alert and Oriented, no neurological deficits
Psych: Calm
A/P:
Sepsis due to pneumonia and empyema:
Patient with tachycardia, tachypnea, leukocytosis, increased lactate. Source is necrotizing pneumonia and empyema.
Stop IV fluid
CT scan of the chest today
Continue IV antibiotics
Chest tube today
Discussed with pulmonary
Right lower lobe necrotizing pneumonia and empyema with near complete right lung collapse:
Continue broad-spectrum antibiotics and follow-up cultures
Pleural fluid pH 6.84 and purulent appearing
Follow-up pleural fluid cultures
Check sputum cultures, Legionella antigen, strep
Check MRSA screen and negative
HIV testing negative
Bronchodilators as needed
Pain control
Chest tube placement
History of polysubstance abuse:
On atomoxetine and Requip
On Abilify
On Seroquel as needed
Nicotine use disorder:
On nicotine patch
DVT prophylaxis:
Lovenox SQ
CODE STATUS:
Full code
Total Critical Care Time__45___ minutes. I was immediately available to the patient and staff. I personally examined, reviewed labs, diagnostic images/reports, interpretations, treatment plans, discussed patient care with other providers and
family or caregivers (if patient is unable to make decisions), entered orders as appropriate and documented the medical record.
Anticipated Discharge: > 48 hours
Subjective/Interval History
-
Date of Service: December 31, 2024
Patient with worsening dyspnea persistent tachypnea this morning. Still short of breath. Worsening leukocytosis. Remains febrile
Objective Data
-
Labs:
Laboratory Results
12/31/24
03:54
WBC 36.4 H
Hgb 11.8 L
Hct 35.1 L
Plt Count 541 H
Sodium 139
Potassium 4.0
Chloride 105
Carbon Dioxide 23
BUN 8 L
Creatinine 0.5 L
Glucose 122 H
Calcium 8.3 L
Vital Signs:
Vital Signs
Temp Pulse Resp BP Pulse Ox
102.7 F H 105 32 140/78 95
12/31/24 07:45 12/31/24 10:07 12/31/24 10:07 12/31/24 10:07 12/31/24 10:07
I&O
12/30/24 12/31/24 01/01/25
06:59 06:59 06:59
Intake Total 4046 / 4046 320 / 320
Output Total 300 / 300 1600 / 1600 600 / 600
Balance -300 / -300 2446 / 2446 -280 / -280
[2024-12-31 11:36] LABS: Body Fluid pH 6.84
--- NOTE | 2024-12-31 11:36 | PTCARENOTE ---
Assumed care of pt from [employer] food shift lead RN. Pt AAOx3. NSR/ST on tele, HRs 90s-130s. Remains on 2L nasal cannula, SpO2 95%. Pt RR remains 30s-40s. Pt tachypneic and diaphoretic. Oral temp this morning 102.7F. Tylenol given for fever (see MAR). Temp now
98.3F. Chest CT showing near complete opacification of the right hemithorax related to combination of atelectatic changes and moderate effusion. Right sided chest tube placed at bedside by Dr. Ventura. Pt tolerated. Pleural fluid samples sent to
lab. Chest tube placement confirmed by chest xray. Pt endorses improved work of breathing after chest tube placement. Remains on 2L, SpO2 96%. RR now 20s-30s. Pt resting comfortably in bed, call moser in reach. Assessment documented.
[2024-12-31 11:43] LABS: Body Fluid WBC 30590 /CUMM
--- NOTE | 2024-12-31 11:44 | OR.RPT ---
Operative Report
Operative Report
Right Sided Chest tube placement (14 F)
Indication: Parapneumonic effusion vs empyema with near complete right lung collapse
Consent: Informed, signed consent obtained from patient
Procedure: Patient was placed in the seated position and triangle of safety was chosen as the site of chest tube placement based on fluid pocket noted on [id number] ultrasound. With sterile gowns, gloves, hat cover and mask, area was cleaned
with chlorhexidine, prep and drape was placed. 3 mL of local lidocaine was injected in the soft tissue. Subsequently [id number] ultrasound was used with the probe cover and in real-time
Left pleural effusion was located and a needle was inserted under suction until pleural fluid was aspirated. Additional lidocaine was injected around the pleura and on the right back through the skin track. A small kelvin was placed and under
suction needle was advanced advanced until pleural fluid was aspirated. Once the fluid was aspirated, syringe was detached and guidewire was advanced without any resistance. The needle was subsequently withdrawn. [id number] ultrasound was used
again confirming the guidewire inside the fluid pocket. I dilator was used to dilate the tract. Subsequently 14 [place] chest tube with the introducer was advanced over the guidewire into the pleural cavity and guidewire along with the introducer
were withdrawn. Chest tube catheter was subsequently attached to suction and purulent looking fluid was immediately aspirated. Around 400 mL of fluid was aspirated right away. No active bleeding noted.
Complications: None. CXR shows improving effusion without any Pneumothorax
Blood loss: 1-2 ml
Time spent: 35 mins
Date of Service: 12/31/2024
[2024-12-31 11:51] LABS: Body Fluid Glucose < 30 mg/dl; Body Fluid Protein 4.5 g/dl; Body Fluid Triglycerides 60 mg/dl
[2024-12-31 12:06] LABS: Body Fluid Second Tech CMB
[2024-12-31 12:11] LABS: Body Fluid LDH 2413 U/L
[2024-12-31] MEDS: NSS IV (12:46)
[2024-12-31 15:12] LABS: Total Protein 5.6 g/dl (6.3-8.2)
[2024-12-31 15:28] LABS: LDH 241 U/L (120-246)
--- NOTE | 2024-12-31 16:56 | W.PN.UPDATE ---
Update Note
Progress Note Update
Pleural fluid studies show pH 6.8, LDH 2413. Suggestive of empyema vs para-pneumonic effusion.
In view of loculations, starting tPA/DNAse
Dose #1 of Alteplase/DNAse given at 455 pm. Clamp tube for 1 hour, then resume suction at -20. D/w RN at bedside.
535 ml noted in the Pleur-evac prior to injecting.
[2024-12-31] MEDS: CATHFLO/ACTIVASE 50 MG INTRAPLEUR (16:57)
[2024-12-31] MEDS: CATHFLO/ACTIVASE 50 ML INTRAPLEUR (16:57)
[2024-12-31] MEDS: NSS 25 ML INTRAPLEUR (16:58)
[2024-12-31] MEDS: PULMOZYME 50 MG INTRAPLEUR (16:58)
[2024-12-31] MEDS: PULMOZYME 50 ML INTRAPLEUR (16:58)
[2024-12-31] MEDS: LOVENOX 40 MG SC (18:04)
--- NOTE | 2024-12-31 18:06 | PTCARENOTE ---
Chest tube unclamped and returned to wall suction at -20 one hour post tPA/DNAse administration. 265mL drained to Pleur-vac after chest tube unclamped.
--- NOTE | 2024-12-31 23:37 | PTCARENOTE ---
Pt received at 19:00, friends visiting at bedside. Pt Ox3. SR-Sinus tach, HR 90s-low 100s. Afebrile. Palpable pulses. 2L NC, breath sounds diminished, more so on the R. R CT in place, -20cm suction, straw/blood tinged drainage with clots. Pt c/o
pain 7/10 to the right chest around to back, mainly with coughing, PRN morphine given and effective, pt states that pain is 'very little' at this time. Safe environment maintained, plan of care ongoing.
[2025-01-01] VITALS (11 sets, daily range): BP systolic 120–146; BP diastolic 70–87; BMI 33.3
[2025-01-01] MEDS: TORADOL 15 MG IV ×4 (01:03→19:19)
[2025-01-01 01:31] LABS: Vancomycin Peak 16.2 ug/ml (18-26)
[2025-01-01] MEDS: UNASYN IV ×4 (02:30→20:42)
[2025-01-01 03:36] LABS: Hematocrit 34.4 % (39.0-52.0); Hemoglobin 11.6 g/dL (13.0-18.0); Mean Corp Hgb Conc. 33.7 g/dL (33.0-37.0); Mean Corpuscular Hgb 29.4 pg (27.0-31.0); Mean Corpuscular Volume 87.1 fL (80.0-94.0); Mean Platelet Volume 9.3 fL (7.4-10.4); Platelet Count 610 10^3/uL (130-400); Red Blood Cell Count 3.95 10^6/uL (4.70-6.10); Red Cell Dist. Width 13.1 % (11.5-14.5); White Blood Cell Count 28.7 10^3/uL (4.8-10.8)
[2025-01-01 03:41] LABS: Blood Urea Nitrogen 13 mg/dl (9-20); Calcium 8.6 mg/dl (8.4-10.2); Carbon Dioxide 24 mmol/L (22-30); Chloride 107 mmol/L (98-107); Estimated Creatinine Clearance > 125 ml/min; Glucose 128 mg/dl (70-99); Potassium 3.9 mmol/L (3.5-5.1); Sodium 140 mmol/L (135-145); eGFR > 60.00
[2025-01-01] MEDS: VANCOCIN 275 MG IV (06:58)
[2025-01-01] MEDS: ABILIFY 10 MG PO (07:04)
[2025-01-01] MEDS: NICODERM TRANSDERMAL 21 MG TRANSDERM (07:04)
[2025-01-01] MEDS: MUCINEX 600 MG PO ×2 (07:04→20:42)
[2025-01-01] MEDS: REQUIP 1 MG PO ×2 (07:04→20:42)
[2025-01-01] MEDS: DELTASONE 40 MG PO (07:04)
[2025-01-01] MEDS: TYLENOL 650 MG PO (07:05)
[2025-01-01 07:09] LABS: % Basophils 0.3 % (0-2); % Eosinophils 0.4 % (0-6); % Immature Granulocytes 3.8 % (0-0.5); % Lymphocytes 6.5 % (20.5-51.1); % Monocytes 5.2 % (1.7-9.3); % Neutrophils 83.8 % (42.2-75.2); Absolute Basophils 0.1 10^3/uL (0-0.2); Absolute Eosinophils 0.1 10^3/uL (0-0.7); Absolute Immature Granulocytes 1.1 10^3/uL (0-0.05); Absolute Lymphocytes 1.9 10^3/uL (1.2-3.4); Absolute Monocytes 1.5 10^3/uL (0.1-0.6); Absolute Neutrophils 24.1 10^3/uL (1.4-6.5); Nucleated Red Blood Cells % 0 % (-)
[2025-01-01] MEDS: COLACE PO ×2 (07:22→18:54)
[2025-01-01] MEDS: NSS 25 ML INTRAPLEUR ×2 (07:52→16:59)
[2025-01-01] MEDS: CATHFLO/ACTIVASE 50 ML INTRAPLEUR (07:53)
[2025-01-01] MEDS: PULMOZYME 50 ML INTRAPLEUR (07:53)
[2025-01-01] MEDS: CATHFLO/ACTIVASE 50 MG INTRAPLEUR (07:53)
[2025-01-01] MEDS: PULMOZYME 50 MG INTRAPLEUR (07:53)
--- NOTE | 2025-01-01 07:59 | W.PN.UPDATE ---
Update Note
Progress Note Update
Dose #2 of Atleplase/DNAse given intra-pleuraly. Chest tube clamped at 8 am. Resume chest tube to suction at 9 am, -20 cm. Updated RN at bedside.
950 ml of purulent collection in Pleur-evac prior to giving 2nd dose.
[2025-01-01] MEDS: MORPHINE SULFATE 4 MG IV ×2 (08:07→18:02)
--- NOTE | 2025-01-01 08:28 | PTCARENOTE ---
Assumed care of pt from cement mason RN. AAOx3. NSR/ST on tele, HRs 90-110s. SpO2 93-98% on 2L. RR in 20s. Chest tube remains to suction at -20. Pleur-vac with straw/blood tinged fluid in collection chamber. No crepitus or air leak noted. Dressing
CDI. Dr. Ventura administered second dose of tPA/DNAse this morning at approximately 0758. Chest tube clamped at this time. Will un-clamp chest tube one hour post tPA/DNAse admin and return to wall suction at -20. Pt medicated with IV toradol and IV
morphine for pain at chest tube site (see MAR). Assessment documented. Pt resting in bed.
--- NOTE | 2025-01-01 08:45 | W.PN.PUL3 ---
Addendum entered and electronically signed by Jamal Ventura MD 01/01/25 17:08:
Dose # 3 of tPA/DNAse injected intra-pleurally. In view of slightly sanguinous output now, only 5 mg of Alteplase was given along with DNAse and saline flush. Tube clamped at 5 pm. Un-clamp and resume suction at 6 pm. Updated RN at bedside.
-CXR in AM
-Group C Strep noted on sputum cultures
1550 ml of purulent output noted in the pleur-evac before installation of dose #3.
Original Note:
Today's Communication / Plan
-
- Second dose of tPA/DNase given this morning
- Follow-up chest x-ray in a.m
Assessment
-
Patient is a very pleasant 24-year-old gentleman with history of drug use in the past, reportedly sober over the last 4 months who presents to emergency room from a rehab facility with worsening shortness of breath. Patient reports about 5 to 6
days of cough with yellowish expectoration. Reports some flulike symptoms prior to that. Does report history of some sick contacts at the facility where he lives. In the emergency room he also was noted to have some pleuritic discomfort on the
right side. He had a CT performed which was suggestive of necrotizing pneumonia in the right lower lobe along with small amount of gas within pleural effusion. Patient was admitted to the hospital and started on IV antibiotics. Pulmonary
consultation was requested for further input.
#1. Right lower lobe necrotizing pneumonia. Also noted trace right effusion with some gas within it on admission. No definitive pneumothorax noted. Patient denies any episode of nausea, vomiting or syncope. Aspiration pneumonia is certainly a
concern with prior history of drug use as well as location of the infiltrate.
- Checking sputum cultures, Legionella and strep pneumo antigen.
- Influenza A, B-, COVID-19 screen negative
- Continue IV Unasyn.MRSA screen negative, vancomycin stopped.
#2. Worsneing Right sided pleural effusion, para-pneumonic vs empyema with traces of air noted on CT. in view of increasing shortness of breath, follow-up CT was performed 12/31 which showed significant worsening of effusion with near complete
collapse of right lung.
- Thoracentesis was initially planned, however on [id number] ultrasound loculations were noted and hence decision was made to switch to chest tube (12/31)
- s/p 14 Occitan pigtail catheter placed at bedside (12/31), with 400 mL of purulent appearing fluid immediately aspirated. Pleural fluid pH 6.8, LDH 2413, WBC count 11838, pleural fluid glucose less than 30,, suggestive of empyema
- t-PA/DNAse started 12/31. Chest tube output 950 ml (01/01)
- Give second dose of tPA/DNase 01/01
- Follow-up CT in 48 hours to assess response to intrapleural tPA/DNase
Pulmonary team will follow.
Total time spent on this consultation/encounter __45__ minutes which includes review of history, physical exam, medications, laboratory data, personal review of imaging, extensive review of outpatient records, discussion with care team and
respiratory therapy.
Data:
CT-PE 12/2024: 1. No large central pulmonary embolism. Evaluation of peripheral pulmonary arteries is limited by patient respiratory motion artifact.
2. Severe right lower lobe pneumonia, with areas of internal necrosis and cavitation.
3. Small associated right pleural effusion. Small amount of gas within the right pleural effusion.
4. Right hilar lymphadenopathy, likely reactive.
5. Evidence of prior granulomatous disease.
Subjective Data
-
Date of Service:
Date of Service: January 01, 2025
Subjective:
Patient sitting in the bed, in no acute distress. Tachypnea seems to be improving patient reports feeling marginally better
Review of Systems
Genitourinary: Other (All 14 systems reviewed and negative except as stated above in the history of present illness.)
Objective Data
Data Reviewed
Vital Signs / I&O / Oxygen:
Vital Signs
Temp Pulse Resp BP Pulse Ox
101.2 F H 115 31 137/84 93
01/01/25 07:08 01/01/25 07:00 01/01/25 03:00 01/01/25 06:00 01/01/25 07:29
Intake and Output
12/31/24 01/01/25 01/02/25
06:59 06:59 06:59
Intake Total 4046 / 4046 2070 / 2070 875 / 875
Output Total 1600 / 1600 2770 / 2770
Balance 2446 / 2446 -700 / -700 875 / 875
SaO2 93
Nasal Cannula flow liters per 2
minute
Physical Exam
General: Other (Respiratory rate improved, patient now breathing in mostly 20s and low 30s compared to high 30s to 40s.)
HEENT: Normocephalic
Cardiovascular: S1-S2 (Sinus tachycardia)
Respiratory: Rhonchi and Other (Air entry decreased on the right side. 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
GI: Soft and Non Distended
Neurology: Awake, Alert and Oriented
Skin: Warm
Labs/Micro/Reports
Lab Data
01/01/25 03:14
01/01/25 03:14
Microbiology
12/30/24 02:57 Blood/Venous Blood Culture - Preliminary
No Growth in 48 hours- Final report to follow
12/30/24 02:24 Blood/Venous Blood Culture - Preliminary
No Growth in 48 hours- Final report to follow
12/31/24 11:13 Pleural Fluid Gram Stain - Final
12/30/24 09:55 Sputum Respiratory Culture - Preliminary
12/30/24 09:55 Sputum Gram Stain - Preliminary
12/30/24 04:58 Nose MRSA Screen - Final
No Methicillin Resistant Staphylococcus aureus isolated.
12/30/24 07:52 Urine Legionella Urinary Antigen - Final
Negative for Legionella pneumophila Serogroup 1 antigen.
A negative result does not rule out the possiblity of
Legionella infection due to other serogroups or species of
Legionella. Clinical correlation is recommended.
12/30/24 07:52 Urine Streptococcus pneumoniae Antigen (M - Final
Negative for Streptococcus pneumoniae antigen.
A negative result does not exclude infection with
Streptococcus pneumoniae. Clinical correlation is
recommended.
12/30/24 02:24 Nasal Swab Influenza Types A & B (DAVE) - Final
Negative for Influenza A & B, NAAT
Negative results must be combined with clinical observations
and patient history.
Nucleic Acid Amplification test (NAAT)performed on the
[employer] platform.
--- NOTE | 2025-01-01 09:13 | PTCARENOTE ---
Chest tube unclamped and returned to wall suction at -20. 330mL new serosanguineous drainage noted in Pleur-evac after CT unclamped and returned to suction.
--- NOTE | 2025-01-01 09:19 | W.PN.HOSP.TC ---
Today's Communication/Plan
-
IV antibiotics. Chest tube care
Assessment / Plan
Assessment / Plan
Physical exam:
General: Acutely ill. Toxic appearance.
HEENT: Normocephalic, Atraumatic and Moist Mucous Membranes
Respiratory: Decreased breath sounds on the right side; Negative Wheezes, Rales or Rhonchi
Cardiac: Regular Rhythm, tachycardic, and S1/S2
GI: Soft, Nontender and Nondistended
Musculoskeletal: No Clubbing, No Cyanosis and No Edema
Neuro: Awake, Alert and Oriented, no neurological deficits
Psych: Calm
A/P:
Sepsis due to pneumonia and empyema:
Patient with tachycardia, tachypnea, leukocytosis, increased lactate. Source is necrotizing pneumonia and empyema.
Stop IV fluid
CT scan of the chest reviewed
Continue IV antibiotics
Chest tube yesterday
Discussed with pulmonary
Right lower lobe necrotizing pneumonia and empyema with near complete right lung collapse:
Continue broad-spectrum antibiotics and follow-up cultures; on IV Unasyn and discontinued vancomycin.
On steroids per pulmonary
Pleural fluid pH 6.84 and purulent appearing
Follow-up pleural fluid cultures
Checking sputum cultures, Legionella antigen, strep
Checked MRSA screen and negative
HIV testing negative
Bronchodilators as needed
Pain control
Chest tube placement
tPA/DNase per pulmonary for chest tube drainage
History of polysubstance abuse:
On atomoxetine and Requip
On Abilify
On Seroquel as needed
Nicotine use disorder:
On nicotine patch
DVT prophylaxis:
Lovenox SQ
CODE STATUS:
Full code
Total time spent on today's encounter was 52 minutes which included time spent in counseling the patient/family regarding diagnosis and treatment plan as listed above, goals of care, and symptom management. Case was discussed with nursing staff,
specialists, and care coordinators/case management. All labs and imaging personally reviewed by me. Remainder the time spent in detailed review of previous records, lab data, imaging, and other medical provider documentation.
Anticipated Discharge: > 48 hours
Subjective/Interval History
-
Date of Service: January 01, 2025
Objective Data
-
Labs:
Laboratory Results
01/01/25
03:14
WBC 28.7 H
Hgb 11.6 L
Hct 34.4 L
Plt Count 610 H
Sodium 140
Potassium 3.9
Chloride 107
Carbon Dioxide 24
BUN 13
Creatinine 0.6 L
Glucose 128 H
Calcium 8.6
Vital Signs:
Vital Signs
Temp Pulse Resp BP Pulse Ox
101.2 F H 109 19 128/71 94
01/01/25 07:08 01/01/25 08:00 01/01/25 08:00 01/01/25 08:00 01/01/25 08:00
I&O
12/31/24 01/01/25 01/02/25
06:59 06:59 06:59
Intake Total 4046 / 4046 207 / 207 875 / 875
Output Total 1600 / 1600 2770 / 2770
Balance 2446 / 2446 -700 / -700 875 / 875
[2025-01-01] MEDS: CATHFLO/ACTIVASE 25 MG INTRAPLEUR (16:58)
[2025-01-01] MEDS: CATHFLO/ACTIVASE 25 ML INTRAPLEUR (16:58)
[2025-01-01] MEDS: PULMOZYME 25 MG INTRAPLEUR (17:00)
[2025-01-01] MEDS: PULMOZYME 25 ML INTRAPLEUR (17:00)
--- NOTE | 2025-01-01 17:09 | PTCARENOTE ---
3rd dose of tPA/DNAse administered via chest tube by Dr. Ventura at bedside. Half dose of Alteplase and DNAse administered (see MAR). Tube clamped at 1700. Pleur-evac with 1550mL output prior to administration.
[2025-01-01] MEDS: LOVENOX 40 MG SC (18:02)
--- NOTE | 2025-01-01 18:15 | PTCARENOTE ---
Chest tube unclamped and returned to wall suction at -20. 160mL new drainage initially noted in Pleur-evac collection chamber. Total output in collection chamber now 1710mL.
--- NOTE | 2025-01-01 20:17 | PTCARENOTE ---
Pt received at 19:00. AOx3, c/o pain 02/14 to R chest/CT site. PRN toradol given. SR-Sinus tach, palpable pulses. 2L NC, pulse ox 96% and above. Breath sounds coarse bilaterally, diminished on the R, and at the bases. Frequent coughing, weak, non
productive. I/S encouraged. R CT with bloody output. Poor appetite. Safe environment maintained, assists with repositioning, plan of care continues.
[2025-01-02] VITALS (14 sets, daily range): BP systolic 96–156; BP diastolic 66–90; BMI 33.2
[2025-01-02] MEDS: UNASYN IV ×2 (02:06→08:34)
[2025-01-02] MEDS: MORPHINE SULFATE 4 MG IV (04:26)
[2025-01-02 04:48] LABS: % Basophils 0.5 % (0-2); % Eosinophils 0.8 % (0-6); % Immature Granulocytes 4.8 % (0-0.5); % Lymphocytes 12.1 % (20.5-51.1); % Monocytes 6.6 % (1.7-9.3); % Neutrophils 75.2 % (42.2-75.2); Absolute Basophils 0.1 10^3/uL (0-0.2); Absolute Eosinophils 0.2 10^3/uL (0-0.7); Absolute Lymphocytes 2.5 10^3/uL (1.2-3.4); Absolute Monocytes 1.3 10^3/uL (0.1-0.6); Absolute Neutrophils 15.3 10^3/uL (1.4-6.5); Hematocrit 35.6 % (39.0-52.0); Hemoglobin 11.9 g/dL (13.0-18.0); Mean Corp Hgb Conc. 33.4 g/dL (33.0-37.0); Mean Corpuscular Hgb 28.8 pg (27.0-31.0); Mean Corpuscular Volume 86.2 fL (80.0-94.0); Mean Platelet Volume 9.1 fL (7.4-10.4); Nucleated Red Blood Cells % 0 % (-); Platelet Count 702 10^3/uL (130-400); Red Blood Cell Count 4.13 10^6/uL (4.70-6.10); Red Cell Dist. Width 13.3 % (11.5-14.5); White Blood Cell Count 20.4 10^3/uL (4.8-10.8)
[2025-01-02 04:58] LABS: Blood Urea Nitrogen 12 mg/dl (9-20); Calcium 8.4 mg/dl (8.4-10.2); Carbon Dioxide 26 mmol/L (22-30); Chloride 105 mmol/L (98-107); Estimated Creatinine Clearance > 125 ml/min; Glucose 127 mg/dl (70-99); Potassium 4.2 mmol/L (3.5-5.1); Sodium 142 mmol/L (135-145); eGFR > 60.00
--- NOTE | 2025-01-02 07:33 | W.PN.INTV ---
Today's Communication / Plan
Recommendations
Wean FiO2
Antibiotics
Infectious disease consultation
Monitor chest tube output
Check CT chest-? Reposition chest tube, repeat tPA/DNase, second chest tube
Consider thoracic surgical evaluation if pleural fluid/empyema cannot be completely evacuated
Assessment
-
Patient is a very pleasant 24-year-old gentleman with history of drug use in the past, reportedly sober over the last 4 months who presents to emergency room from a rehab facility with worsening shortness of breath. Patient reports about 5 to 6
days of cough with yellowish expectoration. Reports some flulike symptoms prior to that. Does report history of some sick contacts at the facility where he lives. In the emergency room he also was noted to have some pleuritic discomfort on the
right side. He had a CT performed which was suggestive of necrotizing pneumonia in the right lower lobe along with small amount of gas within pleural effusion. Patient was admitted to the hospital and started on IV antibiotics. Pulmonary
consultation was requested for further input.
Right lower lobe necrotizing pneumonia
Right sided empyema
Leukocytosis
Anemia
Plan
Supplemental oxygen is needed
Incentive spirometry
Analgesia
Mucolytic's
Nebulizers as needed
Prednisone 40 mg daily
Follow chest x-ray
Monitor chest tube output
Status post tPA/DNase x [address] chest-? Reposition chest tube, upsize chest tube, or additional chest tubes
Thoracic surgical opinion if fluid not completely drained
Check cultures
Cultures reviewed
Continue antibiotics- Rocephin 2 g daily
Infectious disease consultation
DVT prophylaxis
Nutrition
Early mobilization
Critical care statement: A total of 40 minutes of critical care time was provided for this patient today. This includes management of unstable vital signs, evaluation of the patient at bedside, reviewing the patient's pertinent medical records
including radiographs, microbiology, laboratory evaluations, and discussion with primary team, consultants, pharmacy, nutrition, physical therapy, case management, charge nurse, critical care nursing, and respiratory therapy.
Data:
CT-PE 12/2024: 1. No large central pulmonary embolism. Evaluation of peripheral pulmonary arteries is limited by patient respiratory motion artifact.
2. Severe right lower lobe pneumonia, with areas of internal necrosis and cavitation.
3. Small associated right pleural effusion. Small amount of gas within the right pleural effusion.
4. Right hilar lymphadenopathy, likely reactive.
5. Evidence of prior granulomatous disease.
Chest x-ray/-small right pleural effusion improved, underlying pneumonia
CT chest/-moderate loculated right pleural effusion improved from CT, moderate right lower lobe consolidation
Subjective Dataa
Subjective Data
Date of Service:
Date of Service: January 02, 2025
Chief Complaint: [employer] Follow Up and Pulmonary Follow Up
Subjective:
No shortness of breath at rest, chest tube with moderate drainage, No productive cough or abdominal pain
Objective Data
Data Reviewed
Vital Signs / I&O / Oxygen:
Vital Signs
Temp Pulse Resp BP Pulse Ox
99.2 F 94 23 147/87 96
01/02/25 04:54 01/02/25 07:00 01/02/25 07:00 01/02/25 06:00 01/02/25 07:00
Intake and Output
01/01/25 01/02/25 01/03/25
06:59 06:59 06:59
Intake Total 2069 / 2069 2515 / 2515
Output Total 2770 / 2770 2835 / 2835
Balance -700 / -700 -320 / -320
SaO2 96
Nasal Cannula flow liters per 2
minute
Physical Exam
General: Respiratory Distress (n) and Comfortable
HEENT: Anicteric and Moist Mucous Membranes
Cardiovascular: Regular Rhythm
Respiratory: Wheeze (n), Non-Labored Respirations, Accessory Resp Muscle Use (n) and Other (Diminished breath sounds right base with dullness)
GI: Soft, Non Distended and Non Tender
Neurology: Awake, Alert and No Motor Deficits
Skin: Warm, Good Color, Cyanosis (nn), Jaundice and Rash
Labs/Micro/Reports
Lab Data
01/02/25 04:33
01/02/25 04:33
Microbiology
12/30/24 02:57 Blood/Venous Blood Culture - Preliminary
No Growth in 72 hours- Final report to follow
12/30/24 02:24 Blood/Venous Blood Culture - Preliminary
No Growth in 72 hours- Final report to follow
12/31/24 11:13 Pleural Fluid Body Fluid Culture - Preliminary
No Growth After 18-24 Hours
12/31/24 11:13 Pleural Fluid Gram Stain - Final
12/30/24 09:55 Sputum Respiratory Culture - Final
Group C Streptococcus
12/30/24 09:55 Sputum Gram Stain - Final
12/30/24 04:58 Nose MRSA Screen - Final
No Methicillin Resistant Staphylococcus aureus isolated.
12/30/24 07:52 Urine Legionella Urinary Antigen - Final
Negative for Legionella pneumophila Serogroup 1 antigen.
A negative result does not rule out the possiblity of
Legionella infection due to other serogroups or species of
Legionella. Clinical correlation is recommended.
12/30/24 07:52 Urine Streptococcus pneumoniae Antigen (M - Final
Negative for Streptococcus pneumoniae antigen.
A negative result does not exclude infection with
Streptococcus pneumoniae. Clinical correlation is
recommended.
12/30/24 02:24 Nasal Swab Influenza Types A & B (DAVE) - Final
Negative for Influenza A & B, NAAT
Negative results must be combined with clinical observations
and patient history.
Nucleic Acid Amplification test (NAAT)performed on the
[employer] platform.
--- NOTE | 2025-01-02 07:40 | W.PN.HOSP.TC ---
Today's Communication/Plan
-
Continue current care
Assessment / Plan
Assessment / Plan
Gen-AAOx3, mild distress, looks ill
HEENT-NC, AT, anicteric, clear oral mm
Neck-supple
CV-reg, no M, +S1/S2
Lungs-clear B/L
Abd-soft, NT, ND
Ext-no edema
Musculoskeletal-no cyanosis, clubbing
Skin-warm and dry
Neuro-grossly non-focal
Psych-calm, cooperative
Acute hypoxic respiratory insufficiency (POA) -due to sepsis, pneumonia, empyema. Stable on 2 L nasal, oxygen.
Sepsis due to necrotizing community-acquired pneumonia pneumonia/empyema -still with leukocytosis. Last fever 01/01 AM. Hemodynamically stable. Blood cultures negative. Sputum culture with group C streptococcus.
Lactic acidosis resolved.
Right lower lobe necrotizing pneumonia and empyema with near complete right lung collapse:
Chest tube inserted 12/31. Intrapleural Pulmozyme per pulmonary.
Of note patient was on prednisone 20 mg daily for 1 week prior to admission. He believes that it was started for wheezing and coughing in his rehab facility. Denies history of asthma.
History of polysubstance abuse:
On atomoxetine and Requip
On Abilify
On Seroquel as needed
Tobacco dependence
On nicotine patch
Obesity due to excess calories
DVT prophylaxis:
Lovenox SQ
CODE STATUS:
Full code
Anticipated Discharge: > 48 hours
Subjective/Interval History
-
Date of Service: January 02, 2025
Patient seen and examined. Complaining of cough, right-sided chest pain. Overall feels better compared to day of admission.
Objective Data
-
Labs:
Laboratory Results
01/02/25
04:33
WBC 20.4 H
Hgb 11.9 L
Hct 35.6 L
Plt Count 702 H
Sodium 142
Potassium 4.2
Chloride 105
Carbon Dioxide 26
BUN 12
Creatinine 0.5 L
Glucose 127 H
Calcium 8.4
Vital Signs:
Vital Signs
Temp Pulse Resp BP Pulse Ox
98.9 F 94 23 147/87 94
01/02/25 07:32 01/02/25 07:00 01/02/25 07:00 01/02/25 06:00 01/02/25 07:32
I&O
01/01/25 01/02/25 01/03/25
06:59 06:59 06:59
Intake Total 2069 2515 / 2515
Output Total 2770 / 2770 2835 / 2835
Balance -700 / -700 -320 / -320
Review of Systems
-
History Source: Patient
All other systems: Reviewed and negative
[2025-01-02] MEDS: NICODERM TRANSDERMAL 21 MG TRANSDERM (08:34)
[2025-01-02] MEDS: ABILIFY 10 MG PO (08:34)
[2025-01-02] MEDS: DELTASONE 40 MG PO (08:34)
[2025-01-02] MEDS: MUCINEX 600 MG PO ×2 (08:34→19:55)
[2025-01-02] MEDS: REQUIP 1 MG PO ×2 (08:34→19:56)
[2025-01-02] MEDS: COLACE 100 MG PO (08:34)
[2025-01-02] MEDS: TYLENOL 650 MG PO (08:35)
[2025-01-02] MEDS: TORADOL 15 MG IV ×3 (08:37→23:17)
--- NOTE | 2025-01-02 10:22 | CM ---
Patient seen at bedside,in ICU. Patient confirmed phone number [phone] for [facility]. CM to call and confirm discharge plan. Patient for further work up today per nursing. CM will continue to follow for discharge planning
needs.
Plan; return to [facility] [place]
--- NOTE | 2025-01-02 10:25 | CON.ID ---
Consultation
-
Date/Time Consultation Requested: 01/02/2025 0821
Date/Time Consultation Performed: 01/02/2025 0933
Requesting Provider: Dr. Ling
Performing Provider: Dr. Naranjo
Reason for Consultation: Right-sided pneumonia; empyema
Chief Complaint / Past History
History of Present Illness
Martin Arrington is a 25-year-old man with a significant past medical history of illicit drug use being evaluated at the request of Dr. Ling in regards to right-sided pneumonia and empyema. History is obtained from chart review, along with patient
interview.
The patient has a prior history of inhalational methamphetamine use, but reports being clean and in rehab since August 2024. He currently resides in a longterm and is in a day program. He reports that he first began to feel unwell
approximately 1 month ago with a cough that has increased over time. He reports several other people in the longterm have also fallen ill with respiratory type symptoms. He reports that the cough was somewhat dry for approximately 2 weeks but
over the past 2 weeks it is grown more productive with yellowish sputum. He denies any hemoptysis.
On the day of admission he developed marked increase in shortness of breath, along with sharp stabbing right posterior chest discomfort. He denied any nausea or vomiting. He also reports fever on the day of admission.
Workup in the emergency room revealed leukocytosis, and imaging revealed marked right lower lobe infiltrate and effusion. On 12/31 he underwent chest tube placement with recovery of purulent pleural fluid. Cultures have now grown out group C strep,
and Infectious Diseases is asked to comment upon further antimicrobial therapy.
Currently he reports he is feeling somewhat better. He still has pleuritic type chest pain, although notes it is somewhat improved. He admits to having fever since admission. He continues with cough and some sputum production.
Past History
Past Medical History: None
Allergy History:
No Known Allergies Allergy (Unverified 12/30/24 00:19)
Medications Reviewed: Yes
Current Antibiotics:
Unasyn
Social History
Tobacco: Smoker (1 PPD)
Alcohol: None
Drug: Other (Meth)
Personal: Single
Living: With Roomate
Employment: Not Employed
Family History
Family History: Not Pertinent
Review of Systems
Vital Signs
Temp Pulse Resp BP Pulse Ox
98.9 F 87 34 130/76 96
01/02/25 07:32 01/02/25 10:00 01/02/25 10:00 01/02/25 10:00 01/02/25 10:00
Physical Exam
Physical Exam
Constitutional: No Acute Distress, Comfortable, Acutely Ill and Non-toxic
Head: Normocephalic
Eyes: Pupils Equal, Pupils Round, No Conjunctival Hemorrhage and Sclera Anicteric
Oral: No Thrush and No Ulcers
Cardiovascular: Regular Rate and S1/S2; Negative S3/S4
Pulmonary: Non Labored and Other (Right sided chest tube in place.); Negative Wheezes or Rales
Gastrointestinal: Soft, Non Tender, Non Distended and Normal Bowel Sounds
Skin: Warm and Dry; Negative Rash or Jaundice
Neurological: Awake and Alert
Psychological: Calm
.
Lab / Diagnostic Study Results
01/02/25 04:33
01/02/25 04:33
Abs Immat Gran (auto) 1.0 10^3/uL (0-0.05) H 01/02/25 04:33
Absolute Neuts (auto) 15.3 10^3/uL (1.4-6.5) H 01/02/25 04:33
Absolute Lymphs (auto) 2.5 10^3/uL (1.2-3.4) 01/02/25 04:33
Absolute Monos (auto) 1.3 10^3/uL (0.1-0.6) H 01/02/25 04:33
Absolute Basos (auto) 0.1 10^3/uL (0-0.2) 01/02/25 04:33
Immature Gran % 4.8 % (0-0.5) H 01/02/25 04:33
Neutrophils % 75.2 % (42.2-75.2) 01/02/25 04:33
Lymphocytes % 12.1 % (20.5-51.1) L 01/02/25 04:33
Monocytes % 6.6 % (1.7-9.3) 01/02/25 04:33
Eosinophils % 0.8 % (0-6) 01/02/25 04:33
Basophils % 0.5 % (0-2) 01/02/25 04:33
Lactic Acid 1.8 mmol/L (0.7-2.0) 12/30/24 04:59
Ur Squamous Epith Cells 11-15 /LPF (Few) 12/30/24 04:02
Microbiology Results
Micro:
12/31/24 11:13 Body Fluid Culture - Preliminary
Pleural Fluid Positive culture in progress
Gram Stain - Final
GPCs in chains / GNRs
12/30/24 02:57 Blood Culture - Preliminary
Blood/Venous No Growth in 72 hours- Final report to follow
12/30/24 02:24 Blood Culture - Preliminary
Blood/Venous No Growth in 72 hours- Final report to follow
12/30/24 09:55 Respiratory Culture - Final
Sputum Group C Streptococcus
Gram Stain - Final
12/30/24 04:58 MRSA Screen - Final
Nose No Methicillin Resistant Staphylococcus aureus isolated.
12/30/24 07:52 Legionella Urinary Antigen - Final
Urine Negative for Legionella pneumophila Serogroup 1 antigen.
A negative result does not rule out the possiblity of
Legionella infection due to other serogroups or species of
Legionella. Clinical correlation is recommended.
Streptococcus pneumoniae Antigen (M - Final
Negative for Streptococcus pneumoniae antigen.
A negative result does not exclude infection with
Streptococcus pneumoniae. Clinical correlation is
recommended.
12/30/24 02:24 Influenza Types A & B (DAVE) - Final
Nasal Swab Negative for Influenza A & B, NAAT
Negative results must be combined with clinical observations
and patient history.
Nucleic Acid Amplification test (NAAT)performed on the
[employer] platform.
Imaging:
01/02/2025 CXR (portable): Percutaneous right-sided chest tube in place. A small right pleural effusion is noted. Underlying pneumonia cannot be excluded. No pneumothorax noted. Dense nodule in the right upper lung field suggestive of a
granuloma. Please see full dictation for additional detail.
12/31/2024 CT chest w/o contrast : Near complete opacification of the right hemithorax related to combination of atelectatic changes and moderate effusion. There is complete atelectasis of the right lower lobe with opacified right lower lobar
bronchus. Near complete atelectasis of the right middle lobe and right upper lobe. As seen previously, small focus of gas within the right lower lobe suggesting probable cavitary pneumonia. There are also a few small foci of gas within the right
pleural effusion presumably related to infection. Right lung calcified granulomas, calcified hilar and mediastinal lymph nodes, sequela of previous granulomatous infection. Please see full dictation for additional detail. Film personally viewed.
Assessment / Plan
Right-sided pneumonia.
Right empyema
Leukocytosis
Fever
Thrombocytosis
Hx methamphetamine use
Recommendations:
Transition Unasyn to ceftriaxone 2gm IV q24h
Follow pending cultures for final identification and susceptibilities.
Monitor white count and temperature curve.
Follow chest CT and chest x-ray for improvement.
Care Review
Plan reviewed with: Physician (Critical Care)
[2025-01-02] MEDS: STERILE WATER FOR INJECTION 20 ML IV (12:22)
[2025-01-02] MEDS: TYLENOL 1000 MG PO ×2 (12:22→19:57)
[2025-01-02] MEDS: ROCEPHIN 2000 MG IV (12:22)
--- NOTE | 2025-01-02 15:05 | W.PN.UPDATE ---
Update Note
Progress Note Update
- Pt down in IR for possible second R chest tube placement. Repeat CT shows improved loculated effusion/empyema though there are several remaining collections/locules of fluid inferiorly. No remaining fluid around the indwelling chest tube. Pt had a
full lunch at 130 today, so not able to be sedated for procedure and would have to lay prone for any additional chest tube though I'm not sure one additional tube will be able to drain all the remaining collections. May be worth while to have CT
surgery weigh in. Will keep npo tonight with plan to place new tube tomorrow posteriorly.
--- NOTE | 2025-01-02 15:15 | PTCARENOTE ---
pt returned from IR reporting feeling tired. did agree to get oob to chair, and reclined in chair. fell restfully asleep.
[2025-01-02] MEDS: NSS INTRAPLEUR (16:30)
[2025-01-02] MEDS: PULMOZYME INTRAPLEUR ×2 (16:30)
[2025-01-02] MEDS: CATHFLO/ACTIVASE INTRAPLEUR ×2 (16:30)
[2025-01-02] MEDS: LOVENOX 40 MG SC (17:04)
[2025-01-02] MEDS: COLACE PO (19:56)
[2025-01-02] MEDS: MELATONIN 10 MG PO (20:45)
--- NOTE | 2025-01-02 21:03 | PTCARENOTE ---
Received pt resting in bed, AAOx3. Reports 2/10 pain at R chest tube site. PRN tylenol given. SR on tele, HR 90s. BP 133/80. + pulses. AFebrile. On RA. Lungs CTA but diminished bibasilar. R chest tube to -20cm suction. Serosang drainage. No air leak
or crepitus. Encouraged I.S use - reached 750. + bowel sounds. Regular diet but will be NPO at midnight tonight. Monitoring
--- NOTE | 2025-01-02 23:30 | PTCARENOTE ---
Minimal output from chest tube this shift so far. PEGGY Roy notified. Orders to just monitor for now. Pt. resting on and off calmly. Vitals stable.
[2025-01-03] VITALS (16 sets, daily range): BP systolic 85–147; BP diastolic 63–91; PULSE 76; O2SAT 94; BMI 32.4
[2025-01-03] MEDS: TYLENOL 1000 MG PO ×3 (02:29→19:32)
[2025-01-03 05:00] LABS: % Basophils 0.4 % (0-2); % Eosinophils 1.3 % (0-6); % Immature Granulocytes 4.9 % (0-0.5); % Lymphocytes 14.3 % (20.5-51.1); % Monocytes 7.7 % (1.7-9.3); % Neutrophils 71.4 % (42.2-75.2); Absolute Basophils 0.1 10^3/uL (0-0.2); Absolute Eosinophils 0.2 10^3/uL (0-0.7); Absolute Immature Granulocytes 0.9 10^3/uL (0-0.05); Absolute Lymphocytes 2.6 10^3/uL (1.2-3.4); Absolute Monocytes 1.4 10^3/uL (0.1-0.6); Hematocrit 34.8 % (39.0-52.0); Hemoglobin 11.5 g/dL (13.0-18.0); Mean Corpuscular Hgb 28.7 pg (27.0-31.0); Mean Corpuscular Volume 86.8 fL (80.0-94.0); Mean Platelet Volume 9.1 fL (7.4-10.4); Nucleated Red Blood Cells % 0 % (-); Platelet Count 675 10^3/uL (130-400); Red Blood Cell Count 4.01 10^6/uL (4.70-6.10); Red Cell Dist. Width 13.3 % (11.5-14.5); White Blood Cell Count 18.2 10^3/uL (4.8-10.8)
[2025-01-03 05:16] LABS: Blood Urea Nitrogen 19 mg/dl (9-20); Calcium 8.5 mg/dl (8.4-10.2); Carbon Dioxide 26 mmol/L (22-30); Chloride 109 mmol/L (98-107); Estimated Creatinine Clearance > 125 ml/min; Glucose 120 mg/dl (70-99); Sodium 144 mmol/L (135-145); eGFR > 60.00
--- NOTE | 2025-01-03 07:15 | W.PN.INTV ---
Today's Communication / Plan
Recommendations
thoracic surgical consultation pending
Interventional radiology-potential second chest tube for complete drainage
Continue tPA/DNase to help with empyema evacuation
Antibiotics
Transfer to telemetry-pulmonary will continue to follow
Assessment
-
Patient is a very pleasant 24-year-old gentleman with history of drug use in the past, reportedly sober over the last 4 months who presents to emergency room from a rehab facility with worsening shortness of breath. Patient reports about 5 to 6
days of cough with yellowish expectoration. Reports some flulike symptoms prior to that. Does report history of some sick contacts at the facility where he lives. In the emergency room he also was noted to have some pleuritic discomfort on the
right side. He had a CT performed which was suggestive of necrotizing pneumonia in the right lower lobe along with small amount of gas within pleural effusion. Patient was admitted to the hospital and started on IV antibiotics. Pulmonary
consultation was requested for further input.
Right lower lobe necrotizing pneumonia
Right sided empyema
Leukocytosis
Anemia
Plan
Supplemental oxygen is needed
Incentive spirometry encouraged
Analgesia
Mucolytic's
Nebulizers as needed
Prednisone 40 mg daily-wean to off
Follow chest x-ray
Monitor chest tube output
Status post tPA/DNase x [address] chest /-moderate right upper lobe atelectasis versus scarring, moderate loculated right pleural effusion, loculation posterior superior medial right upper lobe field has a small air-fluid level which is new, there are additional tiny pockets
of air within the pleural space, moderate right lower lobe consolidation probably pneumonia versus atelectasis, loculated right pleural effusion significantly improved, moderate right lower lobe consolidation continues to be concerning for
pneumonia, underlying right hilar mass cannot be excluded, mild air in pleural space is can be seen with infection as progressed, right-sided chest tube is new
Thoracic surgical opinion pending
Interventional radiology consulted-second chest tube for complete pleural fluid evacuation
Check cultures encouraged
Sputum culture 12/30/2024-group C streptococcus
Pleural fluid /15-Haea-bxdtkeii cocci in chains and gram-negative bacilli
MRSA screen negative
Blood cultures negative
Influenza negative
Cultures reviewed
Continue antibiotics- Rocephin 2 g daily
Infectious disease consultation noted and appreciated
Smoking cessation counseling
Nicotine patch
Nicorette gum
DVT prophylaxis-on Lovenox
Nutrition
Early mobilization
Outpatient pulmonary follow-up including follow-up CT chest
If patient remains stable could be transferred to telemetry-pulmonary will continue to follow
Critical care statement: A total of 42 minutes of critical care time was provided for this patient today. This includes management of unstable vital signs, evaluation of the patient at bedside, reviewing the patient's pertinent medical records
including radiographs, microbiology, laboratory evaluations, and discussion with primary team, consultants, pharmacy, nutrition, physical therapy, case management, charge nurse, critical care nursing, and respiratory therapy.
Data:
CT-PE 12/2024: 1. No large central pulmonary embolism. Evaluation of peripheral pulmonary arteries is limited by patient respiratory motion artifact.
2. Severe right lower lobe pneumonia, with areas of internal necrosis and cavitation.
3. Small associated right pleural effusion. Small amount of gas within the right pleural effusion.
4. Right hilar lymphadenopathy, likely reactive.
5. Evidence of prior granulomatous disease.
Chest x-ray/-small right pleural effusion improved, underlying pneumonia
CT chest/-moderate loculated right pleural effusion improved from CT, moderate right lower lobe consolidation
Subjective Dataa
Subjective Data
Date of Service:
Date of Service: January 03, 2025
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
Subjective:
feels better, pain controlled, no complaints of shortness of breath or productive cough, no abdominal pain
Review of Systems
General: Other ( Per HPI)
Objective Data
Data Reviewed
Vital Signs / I&O / Oxygen:
Vital Signs
Temp Pulse Resp BP Pulse Ox
98.1 F 82 26 138/81 92
01/03/25 03:36 01/03/25 07:00 01/03/25 07:00 01/03/25 06:00 01/03/25 07:00
Intake and Output
01/02/25 01/03/25 01/04/25
06:59 06:59 06:59
Intake Total 2515 / 2515 1120 / 1120
Output Total 2835 / 2835 1825 / 1825 0 / 0
Balance -320 / -320 -705 / -705 0 / 0
SaO2 92
Nasal Cannula flow liters per 3
minute
Physical Exam
General: Respiratory Distress (n) and Comfortable
HEENT: Anicteric and Moist Mucous Membranes
Cardiovascular: Regular Rhythm
Respiratory: Wheeze (n), Non-Labored Respirations, Accessory Resp Muscle Use (n) and Other (Diminished breath sounds right base with dullness)
GI: Soft, Non Distended and Non Tender
Neurology: Awake, Alert and No Motor Deficits
Skin: Warm, Good Color, Cyanosis (nn), Jaundice and Rash
Labs/Micro/Reports
Lab Data
01/03/25 04:31
01/03/25 04:31
Microbiology
12/30/24 02:57 Blood/Venous Blood Culture - Preliminary
No Growth in 4 days- Final report to follow
12/30/24 02:24 Blood/Venous Blood Culture - Preliminary
No Growth in 4 days- Final report to follow
12/31/24 11:13 Pleural Fluid Body Fluid Culture - Preliminary
Positive culture in progress
12/31/24 11:13 Pleural Fluid Gram Stain - Final
12/30/24 09:55 Sputum Respiratory Culture - Final
Group C Streptococcus
12/30/24 09:55 Sputum Gram Stain - Final
12/30/24 04:58 Nose MRSA Screen - Final
No Methicillin Resistant Staphylococcus aureus isolated.
--- NOTE | 2025-01-03 07:47 | W.PN.HOSP.TC ---
Today's Communication/Plan
-
IR consult
CT surgery
Continue antibiotics
Bowel regimen
Assessment / Plan
Assessment / Plan
Gen-AAOx3, mild distress, looks ill
HEENT-NC, AT, anicteric, clear oral mm
Neck-supple
CV-reg, no M, +S1/S2
Lungs-clear B/L
Abd-soft, NT, ND
Ext-no edema
Musculoskeletal-no cyanosis, clubbing
Skin-warm and dry
Neuro-grossly non-focal
Psych-calm, cooperative
Acute hypoxic respiratory insufficiency (POA) -due to sepsis, pneumonia, empyema. Oxygenation improved, now on room air.
Sepsis due to necrotizing community-acquired pneumonia pneumonia/empyema -WBC count trending down. Is getting steroids which can contribute to leukocytosis. Last fever 01/01 AM. Hemodynamically stable. Blood cultures negative. Sputum culture
with group C streptococcus. Pleural fluid culture shows gram-positive cocci in chains, gram-negative bacilli.
Lactic acidosis resolved. Infectious disease input noted. Now on IV ceftriaxone.
Right lower lobe necrotizing pneumonia and empyema with near complete right lung collapse:
Chest tube inserted 12/31. Intrapleural Pulmozyme per pulmonary. IR to attempt second tube placement today. Currently NPO.
Consult CT surgery for opinion on empyema.
Of note patient was on prednisone 20 mg daily for 1 week prior to admission. He believes that it was started for wheezing and coughing in his rehab facility. Denies history of asthma.
History of polysubstance abuse:
On atomoxetine and Requip
On Abilify
On Seroquel as needed
Tobacco dependence
On nicotine patch
Obesity due to excess calories
DVT prophylaxis:
Lovenox SQ
CODE STATUS:
Full code
Anticipated Discharge: > 48 hours
Subjective/Interval History
-
Date of Service: January 03, 2025
Patient seen and examined. Complaining of pain from chest tube. Denies shortness of breath.
Objective Data
-
Labs:
Laboratory Results
01/03/25
04:31
WBC 18.2 H
Hgb 11.5 L
Hct 34.8 L
Plt Count 675 H
Sodium 144
Potassium 4.0
Chloride 109 H
Carbon Dioxide 26
BUN 19
Creatinine 0.5 L
Glucose 120 H
Calcium 8.5
Vital Signs:
Vital Signs
Temp Pulse Resp BP Pulse Ox
98.1 F 82 26 138/81 92
01/03/25 03:36 01/03/25 07:00 01/03/25 07:00 01/03/25 06:00 01/03/25 07:00
I&O
01/02/25 01/03/25 01/04/25
06:59 06:59 06:59
Intake Total 2515 / 2515 1120 / 1120
Output Total 2835 / 2835 1825 / 1825 0 / 0
Balance -320 / -320 -705 / -705 0 / 0
Review of Systems
-
History Source: Patient
All other systems: Reviewed and negative
--- NOTE | 2025-01-03 08:00 | PTCARENOTE ---
Assumed care of patient. Assessment completed. Pt rec'd A&Ox3...pleasant. On R/A...sats 92% and above. Encouraged coughing, deep breathing, acapella and IS. Right CT site noted. NPO. IR consulted for possible replacement of CT. Will continue
to monitor.
[2025-01-03] MEDS: TORADOL 15 MG IV ×3 (08:02→20:57)
[2025-01-03] MEDS: NICODERM TRANSDERMAL 21 MG TRANSDERM (08:05)
[2025-01-03] MEDS: COLACE PO ×2 (08:10→19:25)
[2025-01-03] MEDS: MUCINEX 600 MG PO ×2 (08:10→19:24)
[2025-01-03] MEDS: REQUIP 1 MG PO ×2 (08:10→19:24)
[2025-01-03] MEDS: DELTASONE 40 MG PO (08:10)
[2025-01-03] MEDS: ABILIFY 10 MG PO (08:10)
--- NOTE | 2025-01-03 11:03 | PTCARENOTE ---
Seen by PT/OT...OOB in chair. Being seen by CT surgery. Pt remains NPO for probable CT insertion in IR today.
--- NOTE | 2025-01-03 11:42 | CONSULT.CT ---
Consultation
-
Date/Time Consultation Requested: 01/03/25
Date/Time Consultation Performed: 01/03/25 11:45
Requesting Provider: Dr. Ha Gonzales
Performing Provider: Ana Concepcion PA-C
Reason for Consultation: Right parapneumonic effusion/empyema
Patient History
Physicians
Family Physician: None
Outpatient Bundle Cutter: None
Inpatient Bundle Cutter: None
History of Present Illness
Patient is a 25-year-old male with prior history of illicit drug use via methamphetamine who states that he has been clean and in a recovery home since August 2024, anxiety, and tobacco abuse (current everyday smoker).
Patient was experiencing shortness of breath and right-sided chest pain. This has been ongoing, however, progressively worsened. He presented to [facility]'s emergency department on 12/30/2024 and was found to have leukocytosis with a
fever of 103.1. Imaging revealed a right lower lobe infiltrate and large pleural effusion. Patient was admitted for further workup, and underwent chest tube placement on 12/31/2024 by airplane dispatcher at the bedside. Patient is being managed by
hospitalist/medicine service with critical care/airplane dispatcher as consultants.pulmonary/critical care has instilled 2 rounds of tPA/dornase via the patients chest tube.
CT scan of the chest revealed a posterior fluid collection, which is not being drained by the patient's anterior chest tube. Patient is being sent to interventional radiology today for a second chest tube placed posteriorly.
Patient is being seen by infectious disease and treated with appropriate antibiotics. His preliminary pleural fluid culture from 12/31/2024 is growing gram-positive cocci in chains as well as gram-negative bacilli. His sputum culture on 12/30/2024
grew group C streptococcus.
CT surgery was consulted to review patient's overall care/case.
Past Medical History
Past Medical History: Other
Anxiety
History of illicit drug use via methamphetamine, clean and in rehab since 08/2024
Tobacco abuse, current everyday smoker
Past Surgical History
None
Dental History
Noncontributory
Family History
Mother: Still Living (In her 50s, lives in [place])
Father: at Age (50) and Cause of (Myocardial infarction)
Family Medical History: CAD (Patient's father suffered fatal myocardial infarction)
Social History
Alcohol: Occasional (Reports 1 beer per week)
Drug: Other (Former history of methamphetamine. Patient states that he has been sober since August 2020 for)
Tobacco: Smoker (Current everyday smoker. 13 years times at least 1 pack/day)
Living: With Roomate (Lives at a recovery home)
Allergies
Allergy/AdvReac Type Severity Reaction Status Date / Time
No Known Allergies Allergy Unverified 12/30/24 00:19
Home Medications
�Medication �Instructions �Recorded �Confirmed �Type
aripiprazole 10 mg tablet 10 mg PO DAILY Mental 12/30/24 12/30/24 History
Health/Anxiety
atomoxetine 40 mg capsule 40 mg PO DAILY Mental 12/30/24 12/30/24 History
(Strattera) Health/Anxiety
benzonatate 100 mg capsule 100 mg PO TID PRN cough 12/30/24 12/30/24 History
melatonin 10 mg tablet 10 mg PO HS PRN sleep 12/30/24 12/30/24 History
naltrexone 50 mg tablet 50 mg PO DAILY SUBSTANCE USE 12/30/24 12/30/24 History
DISORDER
prednisone 20 mg tablet 20 mg PO DAILY INFLAMMATION 12/30/24 12/30/24 History
quetiapine 50 mg tablet (Seroquel) 50 mg PO HS PRN insomnia 12/30/24 12/30/24 History
ropinirole 1 mg tablet 1 mg PO BID restless legs 12/30/24 12/30/24 History
Review of Systems
-
History Source: Patient
General: Reports Fever and Fatigue; Denies Weight Gain or Weight Loss
HEENT: Denies Visual Changes, Dysphagia, Hoarseness or Sore Throat
Respiratory: Reports SOB, ATWOOD and Cough; Denies Asthma
Cardiac: Reports Chest Pain; Denies CAD, Known Vascular Disease, Palpitations, Nausea, Vomiting or Edema
Abdomen/GI: Denies Abdominal Pain, Reflux, Indigestion, Nausea, Vomiting, Diarrhea or BRBPR
: Denies Dysuria, Frequency, Incontinence or Hematuria
Musculoskeletal: Denies Myalgias, Arthralgias, Joint Pain or Edema
Skin: Denies Itching or Rash
Neurological: Denies CVA, TIA, Headaches, Weakness, Numbness or Seizures
Vascular: Denies Claudication or PVD
Physical Exam
Vital Signs
Temp 98.2 F 01/03/25 11:39
Temp route: Oral 01/03/25 11:39
Pulse 70 01/03/25 10:00
Rhythm: Normal sinus rhythm 01/03/25 08:00
With- First Degree Heart Block, Normal sinus rhythm 01/02/25 08:00
Resp Rate 30 01/03/25 10:00
Blood pressure 144/85 01/03/25 10:00
Blood pressure extremity used: Right upper arm 01/02/25 13:54
Position: Lying 01/02/25 13:54
MAP (cuff-Elva Monitor) 101 01/03/25 10:00
SaO2 94 01/03/25 10:00
Nasal Cannula flow liters per minute 3 01/02/25 08:00
Oxygen Mode of Delivery Room air 01/03/25 11:07
Pulse Ox at Rest 94 01/03/25 11:07
Acceptable pain level during hospitalization? 0 12/30/24 00:20
Can the patient verbally communicate their pain? Yes 01/03/25 09:40
Pain scale ratin 01/03/25 09:40
Actual Weight 232 lb 2.348 oz 01/03/25 04:38
Body Mass Index (BMI) 32.4 01/03/25 04:38
Supine- Blood Pressure 139/89 01/03/25 11:07
Supine- Pulse 76 01/03/25 11:07
Heart rate after activity 88 01/03/25 11:07
Oxygen Saturation with Activity 94 01/03/25 11:07
Labs
01/03/25 04:31
01/03/25 04:31
Troponin I < 0.012 ng/ml 12/30/24 00:26
Urinalysis
Urine Color Yellow 12/30/24 04:02
Urine Clarity Clear (Clear) 12/30/24 04:02
Urine pH 5.0 (5.0-9.0) 12/30/24 04:02
Ur Specific [place] 1.015 (<1.030) 12/30/24 04:02
Urine Ketones Negative (Negative) 12/30/24 04:02
Ur Occult Blood Reflex Negative (Negative) 12/30/24 04:02
Urine Bilirubin Negative (Negative) 12/30/24 04:02
Leukocyte Esterase Rfl Negative (Negative) 12/30/24 04:02
Urine RBC 3-6 /HPF (0-2) A 12/30/24 04:02
Urine WBC (Reflex) 6-10 /HPF (0-5) 12/30/24 04:02
Ur Squamous Epith Cells 11-15 /LPF (Few) 12/30/24 04:02
Amorphous Crystals Seen 12/30/24 04:02
Urine Bacteria (Reflex) Few (Negative) A 12/30/24 04:02
Urine Glucose Negative (Negative) 12/30/24 04:02
Urine Albumin (Reflex) 2+ (Neg - Trace) A 12/30/24 04:02
Exam
General: Well Developed, Well Nourished and No Apparent Distress
HEENT: Normocephalic, Moist Mucous Membranes, Atraumatic, PERRLA and EOMI
Neck: Carotid Bruit and Trachea Midline
Respiratory: Other (Decreased breath sounds at the right lower field, otherwise clear); Negative Crackles, Rhonchi or Accessory Muscle Use
Cardiac: S1/S2, Regular Rhythm and Irregular Rhythm; Negative Murmur, Rub or Gallop
GI: Soft, Non Tender, Non Distended and Normal Bowel Sounds
Rectal: Deferred by Provider
Skin: Warm and Dry; Negative Rash
Neuro: AO x 3, No Motor Deficits and CN X-XII Intact
Extremities: Negative Upper Level Edema, Lower Level Edema, Upper Level Cyanosis, Lower Level Cyanosis, Upper Level Clubbing or Lower Level Clubbing
Assessment / Plan
-
Assessment:
25 year ol male with PMH significant for:
Anxiety
History of illicit drug use via methamphetamine, clean and in rehab since 08/2024
Tobacco abuse, current everyday smoker
Now found to have newly diagnosed:
Right lower lobe necrotizing pneumonia
Right sided empyema
Fever
Leukocytosis
Anemia
Plan:
Patient's case was discussed with attending physician.
Agree with critical care's plan to place second chest tube directed posteriorly into the loculated fluid collection.
Continue with tPA and dornase into posterior tube once tube is in place.
Continue chest tube management per pulmonary/critical care.
Continue primary management per hospitalist/medicine service.
Continue antibiotics per infectious disease.
CT surgery will follow peripherally.
If critical care or any other service has additional questions or concerns, please do not hesitate to contact us.
--- NOTE | 2025-01-03 11:55 | PTCARENOTE ---
Pt taken to IR.
--- NOTE | 2025-01-03 12:17 | W.PN.ID1 ---
Date of Service
Date of Service: January 03, 2025
Today's Communication
Continue antibiotics.
Assessment / Plan
Right-sided pneumonia.
Right empyema
Leukocytosis
Fever
Thrombocytosis
Hx methamphetamine use
Recommendations:
Continue ceftriaxone 2gm IV q24h
Follow pending cultures for final identification and susceptibilities.
Monitor white count and temperature curve.
Follow chest CT and chest x-ray for improvement.
Chief Complaint
-: Pneumonia and Other (Empyema)
Subjective / Review of Systems
Patient seen and examined. Reports feeling improved today. Breathing more comfortable.
Review of Systems: No Fever
Vital Signs / Physical Exam
Vital Signs
Vital Signs
Temp Pulse Resp BP Pulse Ox
98 F 85 20 139/86 92
01/03/25 11:58 01/03/25 11:58 01/03/25 11:58 01/03/25 11:58 01/03/25 11:58
Physical Exam
Constitutional: No Acute Distress, Comfortable and Non-toxic
Eyes: Sclera Anicteric
Cardiovascular: S1/S2; Negative S3/S4
Pulmonary: Non Labored and Other (Right chest tube in place)
Gastrointestinal: Soft, Non Tender and Non Distended
Neurological: Awake and Alert
Psychological: Calm
Objective Data
Lab Data
Lab Results
01/03/25 04:31
01/03/25 04:31
Estimated Creat Clear > 125 ml/min 01/03/25 04:31
Lactic Acid 1.8 mmol/L (0.7-2.0) 12/30/24 04:59
Total Bilirubin Cancelled 12/30/24 06:00
AST Cancelled 12/30/24 06:00
ALT Cancelled 12/30/24 06:00
Alkaline Phosphatase Cancelled 12/30/24 06:00
Most recent labs reviewed.
Micro Results:
12/31/24 11:13 Body Fluid Culture - Preliminary
Pleural Fluid Gram Stain - Final
12/30/24 02:57 Blood Culture - Preliminary
Blood/Venous No Growth in 4 days- Final report to follow
12/30/24 02:24 Blood Culture - Preliminary
Blood/Venous No Growth in 4 days- Final report to follow
12/30/24 09:55 Respiratory Culture - Final
Sputum Group C Streptococcus
Gram Stain - Final
12/30/24 04:58 MRSA Screen - Final
Nose No Methicillin Resistant Staphylococcus aureus isolated.
12/30/24 07:52 Legionella Urinary Antigen - Final
Urine Negative for Legionella pneumophila Serogroup 1 antigen.
A negative result does not rule out the possiblity of
Legionella infection due to other serogroups or species of
Legionella. Clinical correlation is recommended.
Streptococcus pneumoniae Antigen (M - Final
Negative for Streptococcus pneumoniae antigen.
A negative result does not exclude infection with
Streptococcus pneumoniae. Clinical correlation is
recommended.
12/30/24 02:24 Influenza Types A & B (DAVE) - Final
Nasal Swab Negative for Influenza A & B, NAAT
Negative results must be combined with clinical observations
and patient history.
Nucleic Acid Amplification test (NAAT)performed on the
[employer] platform.
Imaging:
01/02/2025 CXR (portable): Percutaneous right-sided chest tube in place. A small right pleural effusion is noted. Underlying pneumonia cannot be excluded. No pneumothorax noted. Dense nodule in the right upper lung field suggestive of a
granuloma. Please see full dictation for additional detail.
12/31/2024 CT chest w/o contrast : Near complete opacification of the right hemithorax related to combination of atelectatic changes and moderate effusion. There is complete atelectasis of the right lower lobe with opacified right lower lobar
bronchus. Near complete atelectasis of the right middle lobe and right upper lobe. As seen previously, small focus of gas within the right lower lobe suggesting probable cavitary pneumonia. There are also a few small foci of gas within the right
pleural effusion presumably related to infection. Right lung calcified granulomas, calcified hilar and mediastinal lymph nodes, sequela of previous granulomatous infection. Please see full dictation for additional detail. Film personally viewed.
Care Review
Plan reviewed with: Nurse
[2025-01-03] MEDS: MIRALAX PO (14:47)
[2025-01-03] MEDS: STERILE WATER FOR INJECTION 20 ML IV (14:47)
[2025-01-03] MEDS: ROCEPHIN 2000 MG IV (14:47)
--- NOTE | 2025-01-03 14:56 | W.PN.UPDATE ---
Update Note
Progress Note Update
- CT guided placement of 8.5F drain into loculated pocket of fluid in the medial right lung base. Bloody/purulent fluid aspirated.
- Drain may eventually require upsize/repo with fluoro
- Pt tolerated well.
--- NOTE | 2025-01-03 15:00 | PTCARENOTE ---
Pt returned from IR. New CT placed (labeled B) on right posterior chest area. Sanguinous drainage noted. Regular diet restarted. IV toradol provided....see NOV. Remains on R/A...sats 93%. Will continue to monitor.
[2025-01-03] MEDS: LOVENOX 40 MG SC (17:12)
--- NOTE | 2025-01-03 20:13 | PTCARENOTE ---
Received pt from previous RN. Pt is AAOx3, flat. NSR/sinus tach on the monitor. On RA O2 sat 93%, lungs diminished. Pt with two chest tubes in place, dressing c/d/i, to wall suction, -20cm water. Pt c/o 3/10 pain where the chest tube sites are, PRN
Tylenol given (see MAR). Pt refusing his Colace. Nicotine patch fell off left arm, pt states he does not need it. Mouth care provided. Call moser in reach. Safe environment maintained.
[2025-01-03] MEDS: MELATONIN 10 MG PO (20:50)
[2025-01-04] VITALS (12 sets, daily range): BP systolic 115–135; BP diastolic 66–86; BMI 32.1
[2025-01-04] MEDS: TORADOL 15 MG IV ×2 (03:38→11:05)
[2025-01-04 04:20] LABS: Hematocrit 36.2 % (39.0-52.0); Hemoglobin 12.2 g/dL (13.0-18.0); Mean Corp Hgb Conc. 33.7 g/dL (33.0-37.0); Mean Corpuscular Hgb 28.8 pg (27.0-31.0); Mean Corpuscular Volume 85.6 fL (80.0-94.0); Mean Platelet Volume 8.9 fL (7.4-10.4); Platelet Count 776 10^3/uL (130-400); Red Blood Cell Count 4.23 10^6/uL (4.70-6.10); Red Cell Dist. Width 13.4 % (11.5-14.5); White Blood Cell Count 18.1 10^3/uL (4.8-10.8)
[2025-01-04 04:32] LABS: Blood Urea Nitrogen 18 mg/dl (9-20); Calcium 8.9 mg/dl (8.4-10.2); Carbon Dioxide 26 mmol/L (22-30); Chloride 108 mmol/L (98-107); Estimated Creatinine Clearance > 125 ml/min; Glucose 108 mg/dl (70-99); Potassium 4.3 mmol/L (3.5-5.1); Sodium 140 mmol/L (135-145); eGFR > 60.00
--- NOTE | 2025-01-04 07:20 | W.PN.PUL.V3 ---
Today's Communication / Plan
-
Monitor chest tube output
Instill tPA-half dose/DNase into posterior chest tube and monitor drainage
Follow chest x-ray
Eventual CT chest to ensure complete pleural fluid/empyema evacuation
Cardiothoracic surgery following-discussed case with Dr. Dotson
Assessment
-
Patient is a very pleasant 24-year-old gentleman with history of drug use in the past, reportedly sober over the last 4 months who presents to emergency room from a rehab facility with worsening shortness of breath. Patient reports about 5 to 6
days of cough with yellowish expectoration. Reports some flulike symptoms prior to that. Does report history of some sick contacts at the facility where he lives. In the emergency room he also was noted to have some pleuritic discomfort on the
right side. He had a CT performed which was suggestive of necrotizing pneumonia in the right lower lobe along with small amount of gas within pleural effusion. Patient was admitted to the hospital and started on IV antibiotics. Pulmonary
consultation was requested for further input.
Right lower lobe necrotizing pneumonia
Right sided empyema-status post chest tube x 2
Leukocytosis
Anemia
Plan
Respiratory status has improved
Continue supplemental oxygen-attempt to wean
Incentive spirometry encouraged
Mucus clearing devices if needed
Analgesia
Mucolytic's
Nebulizers as needed
Prednisone 40 mg daily-wean to off
Continue to follow chest x-ray
Monitor chest tube output
Status post tPA/DNase x 3 and anterior chest tube originally placed
CT chest 01/02/25-moderate right upper lobe atelectasis versus scarring, moderate loculated right pleural effusion, loculation posterior superior medial right upper lobe field has a small air-fluid level which is new, there are additional tiny
pockets of air within the pleural space, moderate right lower lobe consolidation probably pneumonia versus atelectasis, loculated right pleural effusion significantly improved, moderate right lower lobe consolidation continues to be concerning for
pneumonia, underlying right hilar mass cannot be excluded, mild air in pleural space is can be seen with infection as progressed, right-sided chest tube is new
Thoracic surgical consult obtained 01/03/25-attempt second chest tube, avoid surgery for now
Interventional radiology consulted-second chest tube for complete pleural fluid evacuation -placed 01/03/25--285 ml/24 hours
attempt tPA/DNase-half dose tPA-communicated with interventional radiology to improve drainage from posterior chest tube 01/04/[address] to ensure empyema collections completely drained
Thoracic surgery following and will be involved if pleural fluid cannot be adequately drained
Check cultures
Sputum culture 12/30/2024-group C streptococcus
Pleural fluid /[id number] cocci in chains and gram-negative bacilli
MRSA screen negative
Blood cultures negative
Influenza negative
Cultures reviewed
Continue antibiotics- Rocephin 2 g daily
Infectious disease consultation noted and appreciated
Smoking cessation counseling
Nicotine patch
Nicorette gum
DVT prophylaxis-on Lovenox
Nutrition
Early mobilization
Outpatient pulmonary follow-up including follow-up CT chest
Patient stable for transfer out of ICU-pulmonary will continue to follow
Reviewed the patient's pertinent medical records including radiographs, microbiology, laboratory evaluations, and discussion with primary team, consultants, pharmacy, nutrition, physical therapy, case management, charge nurse, critical care
nursing, and respiratory therapy.
Data:
CT-PE 12/2024: 1. No large central pulmonary embolism. Evaluation of peripheral pulmonary arteries is limited by patient respiratory motion artifact.
2. Severe right lower lobe pneumonia, with areas of internal necrosis and cavitation.
3. Small associated right pleural effusion. Small amount of gas within the right pleural effusion.
4. Right hilar lymphadenopathy, likely reactive.
5. Evidence of prior granulomatous disease.
Chest x-ray/-small right pleural effusion improved, underlying pneumonia
CT chest/-moderate loculated right pleural effusion improved from CT/, moderate right lower lobe consolidation
Subjective Data
-
Date of Service:
Date of Service: January 04, 2025
Chief Complaint: Pulmonary Follow Up and Dyspnea Follow Up
Subjective:
no complaints of worsening shortness of breath, nonproductive cough, pain controlled, no abdominal pain
Review of Systems
General: Other ( Per HPI)
Objective Data
Data Reviewed
Vital Signs / I&O:
Vital Signs
Temp Pulse Resp BP Pulse Ox
98.0 F 88 18 133/86 93
01/04/25 03:37 01/04/25 06:00 01/04/25 06:00 01/04/25 06:00 01/04/25 06:00
Intake and Output
01/03/25 01/04/25 01/05/25
06:59 06:59 06:59
Intake Total 1120 / 1120 535 / 535
Output Total 1825 / 1825 1485 / 1485
Balance -705 / -705 -950 / -950
SaO2: 93
Nasal Cannula flow liters per minute: 3
Physical Exam
General: Respiratory Distress (n), Comfortable and Other (Respiratory rate improved, patient now breathing in mostly 20s and low 30s compared to high 30s to 40s.)
HEENT: Normocephalic, Anicteric and Moist Mucous Membranes
Cardiovascular: Regular Rhythm
Respiratory: Rhonchi, Non-Labored Respirations, Accessory Resp Muscle Use (n) and Other ( diminished breath sounds right base)
GI: Soft, Non Distended and Non Tender
Neurology: Awake, Alert and No Motor Deficits
Skin: Warm, Good Color, Cyanosis (n) and Jaundice (n)
Labs/Micro/Reports
Lab Data
01/04/25 03:45
01/04/25 03:45
Microbiology
12/30/24 02:57 Blood/Venous Blood Culture - Final
No Growth - Final Report
12/30/24 02:24 Blood/Venous Blood Culture - Final
No Growth - Final Report
12/31/24 11:13 Pleural Fluid Body Fluid Culture - Preliminary
Group C Streptococcus
12/31/24 11:13 Pleural Fluid Gram Stain - Final
12/30/24 09:55 Sputum Respiratory Culture - Final
Group C Streptococcus
12/30/24 09:55 Sputum Gram Stain - Final
--- NOTE | 2025-01-04 07:43 | W.PN.HOSP.TC ---
Today's Communication/Plan
-
Continue current care
Assessment / Plan
Assessment / Plan
Gen-AAOx3, NAD
HEENT-NC, AT, anicteric, clear oral mm
Neck-supple
CV-reg, no M, +S1/S2
Lungs-clear B/L
Abd-soft, NT, ND
Ext-no edema
Musculoskeletal-no cyanosis, clubbing
Skin-warm and dry
Neuro-grossly non-focal
Psych-calm, cooperative
Acute hypoxic respiratory insufficiency (POA) -due to sepsis, pneumonia, empyema. Oxygenation improved, now on room air.
Sepsis due to necrotizing community-acquired pneumonia pneumonia/empyema -WBC count plateaued, 18.1k today. Completed course of steroids. Last fever 01/01 AM. Hemodynamically stable. Blood cultures negative. Sputum and pleural fluid culture with
group C streptococcus.
Lactic acidosis resolved. Infectious disease input noted. Now on IV ceftriaxone.
Right lower lobe necrotizing pneumonia and empyema with near complete right lung collapse:
First chest tube inserted 12/31, second chest tube placed 01/03. 275 cc output via second tube overnight. Intrapleural Pulmozyme per pulmonary.
Chest x-ray today reviewed, does show some improvement in right sided pleural fluid. Official read pending.
CT surgery recommends conservative management.
Of note patient was on prednisone 20 mg daily for 1 week prior to admission. He believes that it was started for wheezing and coughing in his rehab facility. Denies history of asthma.
Completed 5 days of prednisone 40 mg daily, last dose 01/03.
Situation discussed with repack room worker.
History of polysubstance abuse:
On atomoxetine and Requip
On Abilify
On Seroquel as needed
Tobacco dependence
On nicotine patch
Obesity due to excess calories
DVT prophylaxis:
Lovenox SQ
Full code
Anticipated Discharge: > 48 hours
Subjective/Interval History
-
Date of Service: January 04, 2025
Patient seen and examined. No complaints.
Objective Data
-
Labs:
Laboratory Results
01/04/25
03:45
WBC 18.1 H
Hgb 12.2 L
Hct 36.2 L
Plt Count 776 H
Sodium 140
Potassium 4.3
Chloride 108 H
Carbon Dioxide 26
BUN 18
Creatinine 0.5 L
Glucose 108 H
Calcium 8.9
Vital Signs:
Vital Signs
Temp Pulse Resp BP Pulse Ox
98 F 88 18 133/86 93
01/04/25 07:35 01/04/25 06:00 01/04/25 06:00 01/04/25 06:00 01/04/25 07:20
I&O
01/03/25 01/04/25 01/05/25
06:59 06:59 06:59
Intake Total 1120 / 1120 535 / 535
Output Total 1825 / 1825 1485 / 1485
Balance -705 / -705 -950 / -950
Review of Systems
-
History Source: Patient
All other systems: Reviewed and negative
[2025-01-04 07:52] LABS: Absolute Neutrophils -Man Diff 11.2 10^3/uL (1.4-6.5); Band Neutrophils 0 % (0-3); Eosinophils 1 % (0-6); Lymphocytes 28 % (20-51); Metamyelocytes 1 % (-); Monocytes 8 % (2-9); Normal RBC Morphology Yes; Platelets Checked Yes; Segmented Neutrophils 62 % (42-75); Total Cells Counted 100
[2025-01-04] MEDS: MUCINEX 600 MG PO ×2 (08:32→19:49)
[2025-01-04] MEDS: COLACE 100 MG PO ×2 (08:32→19:48)
[2025-01-04] MEDS: NICODERM TRANSDERMAL 21 MG TRANSDERM (08:32)
[2025-01-04] MEDS: MIRALAX 17 GRAMS PO (08:32)
[2025-01-04] MEDS: ABILIFY 10 MG PO (08:32)
[2025-01-04] MEDS: REQUIP 1 MG PO ×2 (08:32→19:48)
--- NOTE | 2025-01-04 09:29 | W.PN.ID1 ---
Date of Service
Date of Service: January 04, 2025
Today's Communication
Continue antibiotics.
Assessment / Plan
Right-sided pneumonia 2* Gp. C strep
Right empyema with growth of Gp C strep.
Leukocytosis
Fever
Thrombocytosis
Hx methamphetamine use
Recommendations:
Continue ceftriaxone 2gm IV q24h
Follow pending cultures for final identification and susceptibilities.
Monitor white count and temperature curve.
Follow chest CT and chest x-ray for improvement.
Chief Complaint
-: Pneumonia and Other (Right Empyema)
Subjective / Review of Systems
Patient seen and examined. Second chest tube inserted yesterday. At present, patient feels well. Reports decreased pain with coughing. Denies fevers or chills.
Vital Signs / Physical Exam
Vital Signs
Vital Signs
Temp Pulse Resp BP Pulse Ox
98 F 81 17 131/79 93
01/04/25 07:35 01/04/25 08:00 01/04/25 08:00 01/04/25 08:00 01/04/25 08:00
Physical Exam
Constitutional: No Acute Distress, Comfortable and Non-toxic
Eyes: Sclera Anicteric
Cardiovascular: S1/S2; Negative S3/S4
Pulmonary: Non Labored and Other (Right chest tube x2 in place)
Gastrointestinal: Soft, Non Tender and Non Distended
Neurological: Awake and Alert
Psychological: Calm
Objective Data
Lab Data
Lab Results
01/04/25 03:45
01/04/25 03:45
Estimated Creat Clear > 125 ml/min 01/04/25 03:45
Lactic Acid 1.8 mmol/L (0.7-2.0) 12/30/24 04:59
Total Bilirubin Cancelled 12/30/24 06:00
AST Cancelled 12/30/24 06:00
ALT Cancelled 12/30/24 06:00
Alkaline Phosphatase Cancelled 12/30/24 06:00
Most recent labs reviewed.
Micro Results:
12/30/24 02:57 Blood Culture - Final
Blood/Venous No Growth - Final Report
12/30/24 02:24 Blood Culture - Final
Blood/Venous No Growth - Final Report
12/31/24 11:13 Body Fluid Culture - Preliminary
Pleural Fluid Group C Streptococcus
Gram Stain - Final
12/30/24 09:55 Respiratory Culture - Final
Sputum Group C Streptococcus
Gram Stain - Final
12/30/24 04:58 MRSA Screen - Final
Nose No Methicillin Resistant Staphylococcus aureus isolated.
12/30/24 07:52 Legionella Urinary Antigen - Final
Urine Negative for Legionella pneumophila Serogroup 1 antigen.
A negative result does not rule out the possiblity of
Legionella infection due to other serogroups or species of
Legionella. Clinical correlation is recommended.
Streptococcus pneumoniae Antigen (M - Final
Negative for Streptococcus pneumoniae antigen.
A negative result does not exclude infection with
Streptococcus pneumoniae. Clinical correlation is
recommended.
12/30/24 02:24 Influenza Types A & B (DAVE) - Final
Nasal Swab Negative for Influenza A & B, NAAT
Negative results must be combined with clinical observations
and patient history.
Nucleic Acid Amplification test (NAAT)performed on the
[employer] platform.
Imaging:
01/02/2025 CXR (portable): Percutaneous right-sided chest tube in place. A small right pleural effusion is noted. Underlying pneumonia cannot be excluded. No pneumothorax noted. Dense nodule in the right upper lung field suggestive of a
granuloma. Please see full dictation for additional detail.
12/31/2024 CT chest w/o contrast : Near complete opacification of the right hemithorax related to combination of atelectatic changes and moderate effusion. There is complete atelectasis of the right lower lobe with opacified right lower lobar
bronchus. Near complete atelectasis of the right middle lobe and right upper lobe. As seen previously, small focus of gas within the right lower lobe suggesting probable cavitary pneumonia. There are also a few small foci of gas within the right
pleural effusion presumably related to infection. Right lung calcified granulomas, calcified hilar and mediastinal lymph nodes, sequela of previous granulomatous infection. Please see full dictation for additional detail. Film personally viewed.
--- NOTE | 2025-01-04 10:23 | CM ---
Addendum entered by Shonna Henriquez 01/04/25 10:49:
CM also spoke with Jesús Leon cell phone [phone] she is the provider for the facility and updated CM no drains or tubes are able to be accepted to the facility, there is a PT outpatient center next door called [facility] that they use frequently
and she confirmed that she is not able to see or assess patient daily at the center. Patient's are required to be independent of ADL's. CM will continue to follow for discharge planning needs.
Plan; return to [facility] pending above restrictions
Original Note:
Patient transferred to IMU today. Patient plan is for discharge back to facility. CM spoke with Juan Carlos at [facility] and per Juan Carlos patient will be able to return and they are holding bed. However, no narcotics are allowed in the facility and
no IV antibiotics.PO antibiotics are allowed. CM will continue to follow for discharge planning needs.
Plan; return to [facility]; Contact Juan Carlos; phone [phone].
[2025-01-04] MEDS: ROCEPHIN 2000 MG IV (11:06)
[2025-01-04] MEDS: STERILE WATER FOR INJECTION 20 ML IV (11:06)
--- NOTE | 2025-01-04 14:02 | PN.IRAD.UPD ---
Update Note - IRAD
- -
4MG TPA , 5 ML DORNASE injected via right 'B' chest tube at bedside per Dr. Akbar.. t. Chest tube was clamped at 1345. Patient tolerated procedure well. Nurse notified
--- NOTE | 2025-01-04 14:13 | W.PN.UPDATE ---
Update Note
Progress Note Update
25 mL of tpa (8mg in 50ml)and 50 mL of dornase5 mg in 50ml) instilled into right posterior IR chest tube (B) at 1345. Chest tube was clamped and should be unclamped at 1545. Order to unclamp was placed
[2025-01-04] MEDS: TYLENOL 1000 MG PO (16:38)
--- NOTE | 2025-01-04 17:14 | PTCARENOTE ---
Pt chest tube was clamped for 2 hrs now unclamped and back to suction . Pt becoming very anxious and agitated with tubes and being in hospital. Talking to his mother on the phone verbalizing his anxieties. Dr Ling tt . Offered pt nicotine gum pt
declined states he does not want it. Pt was appreciative
[2025-01-04] MEDS: LOVENOX 40 MG SC (17:42)
--- NOTE | 2025-01-04 18:00 | PTCARENOTE ---
Offered pt Xanax and he declined as he is in recovery.
[2025-01-04] MEDS: MOTRIN 600 MG PO (19:53)
[2025-01-04] MEDS: MELATONIN 10 MG PO (21:03)
[2025-01-05] VITALS (14 sets, daily range): BP systolic 116–139; BP diastolic 70–84; PULSE 103; O2SAT 95; BMI 32.1
[2025-01-05 04:55] LABS: Hematocrit 36.2 % (39.0-52.0); Hemoglobin 12.1 g/dL (13.0-18.0); Mean Corp Hgb Conc. 33.4 g/dL (33.0-37.0); Mean Corpuscular Volume 86.8 fL (80.0-94.0); Mean Platelet Volume 9.2 fL (7.4-10.4); Platelet Count 790 10^3/uL (130-400); Red Blood Cell Count 4.17 10^6/uL (4.70-6.10); Red Cell Dist. Width 13.4 % (11.5-14.5); White Blood Cell Count 23.5 10^3/uL (4.8-10.8)
--- NOTE | 2025-01-05 05:59 | PTCARENOTE ---
Pt provided with hygiene supplies, hygiene care offered and assistance offered. Pt declining hygiene care at this time.
[2025-01-05 06:26] LABS: Absolute Neutrophils -Man Diff 17.8 10^3/uL (1.4-6.5); Band Neutrophils 4 % (0-3); Eosinophils 3 % (0-6); Lymphocytes 11 % (20-51); Metamyelocytes 6 % (-); Monocytes 1 % (2-9); Myelocytes 3 % (-); Segmented Neutrophils 72 % (42-75)
[2025-01-05 06:29] LABS: Platelets Checked Yes; Total Cells Counted 100; Toxic Granulation 1+
[2025-01-05 06:30] LABS: Normal RBC Morphology No
[2025-01-05 06:31] LABS: Hypochromasia 1+; Polychromasia Occasional; Stomatocytes 1+
[2025-01-05] MEDS: MIRALAX PO (08:53)
[2025-01-05] MEDS: REQUIP 1 MG PO ×2 (08:53→19:51)
[2025-01-05] MEDS: COLACE PO ×2 (08:53→19:02)
[2025-01-05] MEDS: MUCINEX 600 MG PO ×2 (08:54→19:51)
[2025-01-05] MEDS: NICODERM TRANSDERMAL 21 MG TRANSDERM (08:54)
[2025-01-05] MEDS: ABILIFY 10 MG PO (08:54)
--- NOTE | 2025-01-05 08:54 | W.PN.PUL3 ---
Today's Communication / Plan
-
Monitor output from both chest tubes
CT Chest tomorrow AM
ABx as per ID
Pain control
Up OOB as tolerated; PT/OT
Nicotine patch
CT surgery following, if incomplete empyema evacuation then he may be candidate for decortication
Pulmonary service will continue to follow along
Assessment
-
Patient is a very pleasant 24-year-old gentleman with history of drug use in the past, reportedly sober over the last 4 months who presents to emergency room from a rehab facility with worsening shortness of breath. Patient reports about 5 to 6
days of cough with yellowish expectoration. Reports some flulike symptoms prior to that. Does report history of some sick contacts at the facility where he lives. In the emergency room he also was noted to have some pleuritic discomfort on the
right side. He had a CT performed which was suggestive of necrotizing pneumonia in the right lower lobe along with small amount of gas within pleural effusion. Patient was admitted to the hospital and started on IV antibiotics. Pulmonary
consultation was requested for further input.
Right lower lobe necrotizing pneumonia due to group C streptococcus
Right sided empyema due to group C streptococcus - status post chest tube x 2
- Right lateral 14 Fr chest tube ('A') placed by amr physician on 12/31/2024
- Right posterior 8.5 Fr chest tube ('B') placed by IR on 01/03/2025
Leukocytosis
Anemia
History of methamphetamine use (abstinent since August 2024)
Tobacco use disorder
History of anxiety
Plan
Respiratory status has improved
Remains off oxygen since 01/04 and is breathing comfortably
He worked with PT today (01/05) and did well without any significant respiratory complaints
Incentive spirometry encouraged
Mucus clearing devices if needed
Analgesia
Mucolytics
Nebulizers as needed
s/p prednisone 40 mg daily (given 12/30 - 01/03/2025)
Chest tube 'A' only drained 5 cc overnight and is minimally draining as of today, however chest tube be has drained 100 cc overnight of serosanguineous fluid.
- It does not appear that there is any significant fluid where the right lateral chest tube is. Check CT chest and assess if the chest tube 'A' is ready to be removed; if there is still a significant collection at the lateral chest tubes site,
then I will consider tPA/DNase instillation to improve drainage. Will also evaluate how much fluid remains for chest to 'B', and if drainage remains sluggish then could consider tPA/DNase instillation or upsizing
- This was discussed with cardiothoracic surgery, Dr. Dotson --> if insufficient drainage then may be candidate for decortication next week
- Continue to monitor output from both chest tubes for now and monitor for any air leak (currently there is none)
- tPA/DNase was given x 3 (12/31 - 01/01) to the right lateral chest tube
Cultures reviewed:
Sputum culture 12/30/2024-group C streptococcus
Pleural fluid 12/31/24-group C streptococcus
MRSA screen negative
Blood cultures negative
Influenza negative
Continue antibiotics as per ID-currently on Rocephin 2 g daily
Infectious disease correspondence reviewed and appreciated
Smoking cessation counseling
Nicotine patch
Nicorette gum
DVT prophylaxis-on Lovenox
Nutrition
Early mobilization; PT/OT
Outpatient pulmonary follow-up including follow-up CT chest
Pulmonary service will continue to follow along.
Reviewed the patient's pertinent medical records including radiographs, microbiology, laboratory evaluations, and discussion with primary team, consultants, pharmacy, nutrition, physical therapy, case management, charge nurse, critical care
nursing, and respiratory therapy.
Data:
CT-PE 12/2024: 1. No large central pulmonary embolism. Evaluation of peripheral pulmonary arteries is limited by patient respiratory motion artifact.
2. Severe right lower lobe pneumonia, with areas of internal necrosis and cavitation.
3. Small associated right pleural effusion. Small amount of gas within the right pleural effusion.
4. Right hilar lymphadenopathy, likely reactive.
5. Evidence of prior granulomatous disease.
Chest x-ray/-small right pleural effusion improved, underlying pneumonia
CT chest 4-moderate loculated right pleural effusion improved from CT/, moderate right lower lobe consolidation
Total time spent today was 38 minutes for this encounter. Time includes reviewing laboratory test/imaging results, reviewing pertinent medical records, obtaining and reviewing medical history, performing an appropriate exam, ordering medications,
tests and procedures. Time also includes documentation of this encounter, coordinating patient care and communicating with other healthcare professionals. Total time does not include separately billed tests performed on this date of service.
Subjective Data
-
Date of Service:
Date of Service: January 05, 2025
Chief Complaint: Pulmonary Follow Up and Dyspnea Follow Up
Subjective:
Patient was seen and evaluated today at bedside. Afebrile overnight. He is resting on room air, saturating 96%, heart rate 116 and BP 117/75. He says he feels much better overall. Right lateral chest tube has drained 5 cc overnight, and right
posterior chest tube has drained 100 cc overnight. Patient denies LUA, abdominal pain, nausea, diarrhea, fevers or chills.
Review of Systems
General: Other (Negative unless mentioned above)
Objective Data
Data Reviewed
Vital Signs / I&O / Oxygen:
Vital Signs
Temp Pulse Resp BP Pulse Ox
98.6 F 98 32 139/82 93
01/05/25 07:38 01/05/25 06:00 01/05/25 06:00 01/05/25 06:00 01/05/25 06:00
Intake and Output
01/04/25 01/05/25 01/06/25
06:59 06:59 06:59
Intake Total 535 / 535
Output Total 1485 / 1485 752 / 752 105 / 105
Balance -950 / -950 -752 / -752 -105 / -105
SaO2 93
Nasal Cannula flow liters per 3
minute
Physical Exam
General: Respiratory Distress (n), Comfortable, Chills (n) and Sweats (n)
HEENT: Normocephalic, Anicteric and Moist Mucous Membranes
Cardiovascular: S1-S2, Rub (n) and Peripheral Edema (n)
Respiratory: Wheeze (nn), Crackles (Bilaterally (R >L)), Rhonchi (Bilaterally (R >L)), Non-Labored Respirations, Accessory Resp Muscle Use (n) and Other (Diminished breath sounds right base)
GI: Soft, Distended (Abdominal obesity), Non Tender and Normal Bowel Sounds
Neurology: AO x 3 and Tremors (n)
Skin: Warm, Dry, Cyanosis (n) and Jaundice (n)
Labs/Micro/Reports
Lab Data
01/05/25 04:19
01/04/25 03:45
Microbiology
12/31/24 11:13 Pleural Fluid Body Fluid Culture - Preliminary
Group C Streptococcus
12/31/24 11:13 Pleural Fluid Gram Stain - Final
12/30/24 02:57 Blood/Venous Blood Culture - Final
No Growth - Final Report
12/30/24 02:24 Blood/Venous Blood Culture - Final
No Growth - Final Report
--- NOTE | 2025-01-05 10:48 | PTCARENOTE ---
Rec'd pt this AM. At start of shift pt was tearful stating tht he wanted to leave the hospital. RN provided education regarding his condition, reason for chest tubes and his serious medical condition. Pt responded well. Currently in good spirits.
Spoke to his mother who is trying to come to [place] to be with him. Vital signs stable.
--- NOTE | 2025-01-05 11:19 | W.PN.HOSP.TC ---
Today's Communication/Plan
-
Continue current care
Assessment / Plan
Assessment / Plan
Gen-AAOx3, NAD
HEENT-NC, AT, anicteric, clear oral mm
Neck-supple
CV-reg, no M, +S1/S2
Lungs-clear B/L
Abd-soft, NT, ND
Ext-no edema
Musculoskeletal-no cyanosis, clubbing
Skin-warm and dry
Neuro-grossly non-focal
Psych-calm, cooperative
Acute hypoxic respiratory insufficiency (POA) -due to sepsis, pneumonia, empyema. Oxygenation improved, now on room air.
Sepsis due to necrotizing community-acquired pneumonia pneumonia/empyema -WBC count higher today, 23.5k. Completed course of steroids. Last fever 01/01 AM. Hemodynamically stable. Blood cultures negative. Sputum and pleural fluid culture with
group C streptococcus.
Lactic acidosis resolved. Infectious disease input noted. Now on IV ceftriaxone.
Chest x-ray today shows stable small right pleural effusion and right basilar airspace disease.
Right lower lobe necrotizing pneumonia and empyema with near complete right lung collapse:
First chest tube inserted 12/31, second chest tube placed 01/03. 275 cc output via second tube overnight. Intrapleural Pulmozyme per pulmonary.
Chest x-ray today reviewed, does show some improvement in right sided pleural fluid. Official read pending.
CT surgery recommends conservative management.
Of note patient was on prednisone 20 mg daily for 1 week prior to admission. He believes that it was started for wheezing and coughing in his rehab facility. Denies history of asthma.
Completed 5 days of prednisone 40 mg daily, last dose 01/03.
Situation discussed with brim stiffener.
History of polysubstance abuse:
On atomoxetine and Requip
On Abilify
On Seroquel as needed
Tobacco dependence
On nicotine patch
Obesity due to excess calories
DVT prophylaxis:
Lovenox SQ
Full code
Anticipated Discharge: > 48 hours
Subjective/Interval History
-
Date of Service: January 05, 2025
Patient seen and examined. No complaints.
Objective Data
-
Labs:
Laboratory Results
01/05/25
04:19
WBC 23.5 H
Hgb 12.1 L
Hct 36.2 L
Plt Count 790 H
Vital Signs:
Vital Signs
Temp Pulse Resp BP Pulse Ox
98.6 F 98 32 139/82 95
01/05/25 07:38 01/05/25 06:00 01/05/25 06:00 01/05/25 06:00 01/05/25 10:53
I&O
01/04/25 01/05/25 01/06/25
06:59 06:59 06:59
Intake Total 535 / 535
Output Total 1485 / 1485 752 / 752 105 / 105
Balance -950 / -950 -752 / -752 -105 / -105
Review of Systems
-
History Source: Patient
All other systems: Reviewed and negative
[2025-01-05] MEDS: ROCEPHIN 2000 MG IV (12:33)
[2025-01-05] MEDS: STERILE WATER FOR INJECTION 20 ML IV (12:34)
--- NOTE | 2025-01-05 15:05 | W.PN.ID1 ---
Date of Service
Date of Service: January 05, 2025
Today's Communication
Continue ceftriaxone.
Assessment / Plan
Right-sided pneumonia 2* Gp. C strep
Right empyema with growth of Gp C strep.
Leukocytosis
Fever
Thrombocytosis
Hx methamphetamine use
Recommendations:
Continue ceftriaxone 2gm IV q24h. Patient will need 6-week course of antibiotics.
Monitor white count and temperature curve.
Follow chest CT and chest x-ray for improvement.
Chief Complaint
-: Pneumonia and Other (Right Empyema)
Subjective / Review of Systems
Review of Systems: No Fever and No Chills
Vital Signs / Physical Exam
Vital Signs
Vital Signs
Temp Pulse Resp BP Pulse Ox
98.1 F 104 27 116/77 94
01/05/25 11:39 01/05/25 14:00 01/05/25 14:00 01/05/25 12:00 01/05/25 12:00
Physical Exam
Constitutional: No Acute Distress, Comfortable and Non-toxic
Eyes: Sclera Anicteric
Cardiovascular: S1/S2; Negative S3/S4
Pulmonary: Non Labored and Other (Right chest tube x2 in place)
Gastrointestinal: Soft, Non Tender and Non Distended
Neurological: Awake and Alert
Psychological: Calm
Objective Data
Lab Data
Lab Results
01/05/25 04:19
01/04/25 03:45
Estimated Creat Clear > 125 ml/min 01/04/25 03:45
Lactic Acid 1.8 mmol/L (0.7-2.0) 12/30/24 04:59
Total Bilirubin Cancelled 12/30/24 06:00
AST Cancelled 12/30/24 06:00
ALT Cancelled 12/30/24 06:00
Alkaline Phosphatase Cancelled 12/30/24 06:00
Most recent labs reviewed.
Micro Results:
12/31/24 11:13 Body Fluid Culture - Preliminary
Pleural Fluid Group C Streptococcus
Gram Stain - Final
12/30/24 02:57 Blood Culture - Final
Blood/Venous No Growth - Final Report
12/30/24 02:24 Blood Culture - Final
Blood/Venous No Growth - Final Report
12/30/24 09:55 Respiratory Culture - Final
Sputum Group C Streptococcus
Gram Stain - Final
12/30/24 04:58 MRSA Screen - Final
Nose No Methicillin Resistant Staphylococcus aureus isolated.
12/30/24 07:52 Legionella Urinary Antigen - Final
Urine Negative for Legionella pneumophila Serogroup 1 antigen.
A negative result does not rule out the possiblity of
Legionella infection due to other serogroups or species of
Legionella. Clinical correlation is recommended.
Streptococcus pneumoniae Antigen (M - Final
Negative for Streptococcus pneumoniae antigen.
A negative result does not exclude infection with
Streptococcus pneumoniae. Clinical correlation is
recommended.
12/30/24 02:24 Influenza Types A & B (DAVE) - Final
Nasal Swab Negative for Influenza A & B, NAAT
Negative results must be combined with clinical observations
and patient history.
Nucleic Acid Amplification test (NAAT)performed on the
[employer] platform.
Imaging:
01/02/2025 CXR (portable): Percutaneous right-sided chest tube in place. A small right pleural effusion is noted. Underlying pneumonia cannot be excluded. No pneumothorax noted. Dense nodule in the right upper lung field suggestive of a
granuloma. Please see full dictation for additional detail.
12/31/2024 CT chest w/o contrast : Near complete opacification of the right hemithorax related to combination of atelectatic changes and moderate effusion. There is complete atelectasis of the right lower lobe with opacified right lower lobar
bronchus. Near complete atelectasis of the right middle lobe and right upper lobe. As seen previously, small focus of gas within the right lower lobe suggesting probable cavitary pneumonia. There are also a few small foci of gas within the right
pleural effusion presumably related to infection. Right lung calcified granulomas, calcified hilar and mediastinal lymph nodes, sequela of previous granulomatous infection. Please see full dictation for additional detail. Film personally viewed.
Care Review
Plan reviewed with: Physician (Pulmonary)
--- NOTE | 2025-01-05 17:09 | W.PN.UPDATE ---
Update Note
Progress Note Update
CXR Looks better, would continue drainage as it, would plan on repeat CT chest next week to determine if decortication is necessary.
[2025-01-05] MEDS: LOVENOX 40 MG SC (17:10)
--- NOTE | 2025-01-05 17:12 | CM ---
[facility] with Hx polysubstance abuse with Dx sepsis due to necrotizing community acquired pneumonia/empyema. Chest tube. Receiving IV Abx. PT; no needs.
As per prior CM notes: patient will be able to return and they are holding bed, however cannot return with IV Abx, narcotics, drains or tubes. Patient must be independent in ADLs and outpatient PT is available through AT if needed.
Spoke with nurse Gaytan; patient wanted to leave hospital this am, however agreed to stay.
Per nurses notes, nurse spoke with his mother who is trying to come to [place] to be with him.
CM continuing to follow for d/c needs.
Plan return to [facility] when medically ready.
[2025-01-06] VITALS (13 sets, daily range): BP systolic 117–133; BP diastolic 65–88; PULSE 95; O2SAT 95
[2025-01-06 05:08] LABS: Hematocrit 36.5 % (39.0-52.0); Hemoglobin 12.2 g/dL (13.0-18.0); Mean Corp Hgb Conc. 33.4 g/dL (33.0-37.0); Mean Corpuscular Hgb 28.5 pg (27.0-31.0); Mean Corpuscular Volume 85.3 fL (80.0-94.0); Platelet Count 791 10^3/uL (130-400); Red Blood Cell Count 4.28 10^6/uL (4.70-6.10); Red Cell Dist. Width 13.5 % (11.5-14.5); White Blood Cell Count 23.7 10^3/uL (4.8-10.8)
--- NOTE | 2025-01-06 06:12 | PTCARENOTE ---
no acute events overnight. chest tube A and B remain intact to wall suction. no output noted overnight. pt with no complaints of pain. 94% RA.
[2025-01-06 08:01] LABS: Absolute Neutrophils -Man Diff 16.8 10^3/uL (1.4-6.5); Band Neutrophils 6 % (0-3); Eosinophils 2 % (0-6); Lymphocytes 11 % (20-51); Monocytes 11 % (2-9); Segmented Neutrophils 65 % (42-75)
[2025-01-06 08:02] LABS: Metamyelocytes 4 % (-); Myelocytes 1 % (-); Normal RBC Morphology Yes; Platelets Checked Yes; Total Cells Counted 100
--- NOTE | 2025-01-06 08:50 | W.PN.PUL3 ---
Today's Communication / Plan
-
Remove chest tube 'A' today
Upsize chest tube 'B' today via IR
Monitor chest tube output
Serial CXR
ABx as per ID with eventual PICC prior to discharge
Pain control
Up OOB as tolerated; PT/OT
Nicotine patch
CT surgery following, if incomplete empyema evacuation then he may be candidate for decortication
Pulmonary service will continue to follow along
Assessment
-
Patient is a very pleasant 24-year-old gentleman with history of drug use in the past, reportedly sober over the last 4 months who presents to emergency room from a rehab facility with worsening shortness of breath. Patient reports about 5 to 6
days of cough with yellowish expectoration. Reports some flulike symptoms prior to that. Does report history of some sick contacts at the facility where he lives. In the emergency room he also was noted to have some pleuritic discomfort on the
right side. He had a CT performed which was suggestive of necrotizing pneumonia in the right lower lobe along with small amount of gas within pleural effusion. Patient was admitted to the hospital and started on IV antibiotics. Pulmonary
consultation was requested for further input.
Right lower lobe necrotizing pneumonia due to group C streptococcus
Right sided empyema due to group C streptococcus - status post chest tubes x 2
- Right lateral 14 Fr chest tube ('A') placed by wood window and door craftsman on 12/31/2024
- Right posterior 8.5 Fr chest tube ('B') placed by IR on 01/03/2025
Leukocytosis
Anemia
History of methamphetamine use (abstinent since August 2024)
Tobacco use disorder
History of anxiety
Plan
Respiratory status has improved
Remains off oxygen since 01/04 and is breathing comfortably
He worked with PT 01/05 and did well without any significant respiratory complaints
Continue PT/OT as tolerated
Incentive spirometry encouraged
Mucus clearing devices if needed
Analgesia
Mucolytics
Nebulizers as needed
s/p prednisone 40 mg daily (given 12/30 - 01/03/2025)
Chest tube 'A' only drained 5 cc overnight from 01/04 - 01/05/2025, and continues to have no output today (01/06). CT Chest shows no fluid seen at the distal tip of this chest tube --> tube was removed (see separate update note.
- Ct Chest also shows continued small loculated fluid collection in the right base with chest tube within this collection. Given that this is a small 8.5 Romansh chest tube, recommend to upsize chest tube by IR. He may need tPA/dornase if chest
tube has minimal output despite upsizing.
- This was discussed with cardiothoracic surgery, Dr. Dotson --> if there is persistent residual RLL loculated fluid despite non-surgical interventions, then he may be candidate for decortication next week
- Continue to monitor output from chest tube and monitor for air leak (currently there is none)
- tPA/DNase was given x 3 (12/31 - 01/01) to the right lateral chest tube
Cultures reviewed:
Sputum culture 12/30/2024-group C streptococcus
Pleural fluid 12/31/24-group C streptococcus
MRSA screen negative
Blood cultures negative
Influenza negative
Continue antibiotics as per ID-currently on Rocephin 2 g daily
Infectious disease correspondence reviewed and appreciated
Smoking cessation counseling
Nicotine patch
Nicorette gum
DVT prophylaxis-on Lovenox
Nutrition
Early mobilization; PT/OT
Outpatient pulmonary follow-up including follow-up CT chest
Pulmonary service will continue to follow along.
Reviewed the patient's pertinent medical records including radiographs, microbiology, laboratory evaluations, and discussion with primary team, consultants, pharmacy, nutrition, physical therapy, case management, charge nurse, critical care
nursing, and respiratory therapy.
Data:
CT-PE 12/2024: 1. No large central pulmonary embolism. Evaluation of peripheral pulmonary arteries is limited by patient respiratory motion artifact.
2. Severe right lower lobe pneumonia, with areas of internal necrosis and cavitation.
3. Small associated right pleural effusion. Small amount of gas within the right pleural effusion.
4. Right hilar lymphadenopathy, likely reactive.
5. Evidence of prior granulomatous disease.
CT Chest without Contrast 01/06/2025:
1. Significantly improved complex right pleural effusion compared to prior CT dated 01/02/2025.
2. Small loculated collection of fluid and air is seen along the medial pleural surface as detailed above, significantly improved in size compared to prior study.
3. There is an ovoid collection of fluid and air within or adjacent to the consolidated right lower lobe. This is felt to most likely represent a locule of pleural fluid, however may also represent necrotic pneumonia.
4. Dense airspace consolidation within the right lower lobe, consistent with severe pneumonia.
5. Granulomatous lymph nodes within the mediastinum and right hilum. Small calcified granuloma within the right upper lobe.
Chest x-ray 01/02/25-small right pleural effusion improved, underlying pneumonia
CT chest 01/02/25-moderate loculated right pleural effusion improved from CT, moderate right lower lobe consolidation
Total time spent today was 41 minutes for this encounter. Time includes reviewing laboratory test/imaging results, reviewing pertinent medical records, obtaining and reviewing medical history, performing an appropriate exam, ordering medications,
tests and procedures. Time also includes documentation of this encounter, coordinating patient care and communicating with other healthcare professionals. Total time does not include separately billed tests performed on this date of service.
Subjective Data
-
Date of Service:
Date of Service: January 06, 2025
Chief Complaint: Pulmonary Follow Up and Dyspnea Follow Up
Subjective:
Patient was seen and evaluated this morning. Remained afebrile overnight. Leukocytosis is mildly increased. CT chest obtained today showing improvement compared to prior CT chest on 01/02/2025. Heart rate 97, saturating 95% on room air.
Review of Systems
General: Other (Negative unless mentioned above)
Objective Data
Data Reviewed
Vital Signs / I&O / Oxygen:
Vital Signs
Temp Pulse Resp BP Pulse Ox
98.5 F 87 31 133/85 95
01/06/25 07:00 01/06/25 08:32 01/06/25 08:00 01/06/25 08:32 01/06/25 08:00
Intake and Output
01/05/25 01/06/25 01/07/25
06:59 06:59 06:59
Intake Total 480 / 480
Output Total 752 / 752 510 / 510 1050 / 1050
Balance -752 / -752 -510 / -510 -570 / -570
SaO2 95
Nasal Cannula flow liters per 3
minute
Physical Exam
General: Respiratory Distress (n), Comfortable, Chills (n) and Sweats (n)
HEENT: Normocephalic, Anicteric and Moist Mucous Membranes
Cardiovascular: S1-S2, Rub (n) and Peripheral Edema (n)
Respiratory: Wheeze (nn), Crackles (Bilaterally (R >L)), Rhonchi (Bilaterally (R >L)), Non-Labored Respirations, Accessory Resp Muscle Use (n), Chest Tube (Right lateral chest tube + right posterior chest tube, both attached to suction, both have no
airleak) and Other (Diminished breath sounds right base)
GI: Soft, Distended (Abdominal obesity), Non Tender and Normal Bowel Sounds
Neurology: AO x 3 and Tremors (n)
Skin: Warm, Dry, Cyanosis (n) and Jaundice (n)
Labs/Micro/Reports
Lab Data
01/06/25 04:48
01/04/25 03:45
Microbiology
12/31/24 11:13 Pleural Fluid Body Fluid Culture - Preliminary
Group C Streptococcus
12/31/24 11:13 Pleural Fluid Gram Stain - Final
12/30/24 02:57 Blood/Venous Blood Culture - Final
No Growth - Final Report
12/30/24 02:24 Blood/Venous Blood Culture - Final
No Growth - Final Report
[2025-01-06] MEDS: MIRALAX PO (09:01)
[2025-01-06] MEDS: COLACE PO ×2 (09:01→20:16)
[2025-01-06] MEDS: NICODERM TRANSDERMAL 21 MG TRANSDERM (09:02)
[2025-01-06] MEDS: ABILIFY 10 MG PO (09:02)
[2025-01-06] MEDS: REQUIP 1 MG PO ×2 (09:02→20:16)
[2025-01-06] MEDS: MUCINEX 600 MG PO ×2 (09:02→20:16)
--- NOTE | 2025-01-06 09:14 | W.PN.HOSP.TC ---
Today's Communication/Plan
-
Continue current care
Assessment / Plan
Assessment / Plan
Gen-AAOx3, NAD
HEENT-NC, AT, anicteric, clear oral mm
Neck-supple
CV-reg, no M, +S1/S2
Lungs-clear B/L
Abd-soft, NT, ND
Ext-no edema
Musculoskeletal-no cyanosis, clubbing
Skin-warm and dry
Neuro-grossly non-focal
Psych-calm, cooperative
Acute hypoxic respiratory insufficiency (POA) -due to sepsis, pneumonia, empyema. Oxygenation improved, now on room air. Denies chest pain or shortness of breath. Has a mild cough now.
Sepsis due to necrotizing community-acquired pneumonia pneumonia/empyema -stable leukocytosis, 23.7k today. Completed course of steroids. Last fever 01/01 AM. Hemodynamically stable. Blood cultures negative. Sputum and pleural fluid culture with
group C streptococcus.
Lactic acidosis resolved. Infectious disease input noted. Continue IV ceftriaxone per ID.
Right lower lobe necrotizing pneumonia and empyema with near complete right lung collapse -repeat CT chest this morning shows significantly improved complex right pleural effusion. Small loculated collection of fluid and air seen along the medial
pleural surface. Significantly improved compared to prior study. Still with dense airspace consolidation in the right lower lobe consistent with severe pneumonia. Granulomatous lymph nodes noted.
First chest tube inserted 12/31, second chest tube placed 01/03. Overall chest tube outputs are decreasing.
Chest x-ray today reviewed, does show some improvement in right sided pleural fluid. Official read pending.
CT surgery recommends conservative management.
Of note patient was on prednisone 20 mg daily for 1 week prior to admission. He believes that it was started for wheezing and coughing in his rehab facility. Denies history of asthma.
Completed 5 days of prednisone 40 mg daily, last dose 01/03.
History of polysubstance abuse:
On atomoxetine and Requip
On Abilify
On Seroquel as needed
Tobacco dependence
On nicotine patch
Obesity due to excess calories
DVT prophylaxis:
Lovenox SQ
Full code
Anticipated Discharge: > 48 hours
Subjective/Interval History
-
Date of Service: January 06, 2025
Patient seen and examined. No complaints.
Objective Data
-
Labs:
Laboratory Results
01/06/25
04:48
WBC 23.7 H
Hgb 12.2 L
Hct 36.5 L
Plt Count 791 H
Vital Signs:
Vital Signs
Temp Pulse Resp BP Pulse Ox
98.5 F 88 22 126/80 94
01/06/25 07:00 01/06/25 06:00 01/06/25 06:00 01/06/25 06:00 01/06/25 06:00
I&O
01/05/25 01/06/25 01/07/25
06:59 06:59 06:59
Output Total 752 / 752 510 / 510 500 / 500
Balance -752 / -752 -510 / -510 -500 / -500
Review of Systems
-
History Source: Patient
All other systems: Reviewed and negative
--- NOTE | 2025-01-06 11:22 | W.PN.ID1 ---
Date of Service
Date of Service: January 06, 2025
Today's Communication
Continue antibiotics.
Assessment / Plan
Right-sided pneumonia 2* Gp. C strep
Right empyema with growth of Gp C strep.
Leukocytosis
Fever
Thrombocytosis
Hx methamphetamine use
Recommendations:
Continue ceftriaxone 2gm IV q24h (d#8 abx). Patient will need 6-week course of antibiotics.
Monitor white count and temperature curve.
Follow chest CT and chest x-ray for improvement.
����������������������������������������������������������
Chief Complaint
-: Pneumonia and Other (Right Empyema)
Subjective / Review of Systems
Review of Systems: No Fever, Chills, Cough and No Sputum Production
Vital Signs / Physical Exam
Vital Signs
Vital Signs
Temp Pulse Resp BP Pulse Ox
98.3 F 87 31 133/85 95
01/06/25 11:00 01/06/25 08:32 01/06/25 08:00 01/06/25 08:32 01/06/25 08:00
Physical Exam
Constitutional: No Acute Distress, Comfortable and Non-toxic
Eyes: Sclera Anicteric
Cardiovascular: S1/S2; Negative S3/S4
Pulmonary: Non Labored and Other (Right chest tube x2 in place)
Gastrointestinal: Soft, Non Tender and Non Distended
Skin: Negative Rash or Jaundice
Neurological: Awake, Alert and Oriented
Psychological: Calm
Objective Data
Lab Data
Lab Results
01/06/25 04:48
01/04/25 03:45
Estimated Creat Clear > 125 ml/min 01/04/25 03:45
Lactic Acid 1.8 mmol/L (0.7-2.0) 12/30/24 04:59
Total Bilirubin Cancelled 12/30/24 06:00
AST Cancelled 12/30/24 06:00
ALT Cancelled 12/30/24 06:00
Alkaline Phosphatase Cancelled 12/30/24 06:00
Most recent labs reviewed.
Micro Results:
12/31/24 11:13 Body Fluid Culture - Preliminary
Pleural Fluid Group C Streptococcus
Gram Stain - Final
12/30/24 02:57 Blood Culture - Final
Blood/Venous No Growth - Final Report
12/30/24 02:24 Blood Culture - Final
Blood/Venous No Growth - Final Report
12/30/24 09:55 Respiratory Culture - Final
Sputum Group C Streptococcus
Gram Stain - Final
12/30/24 04:58 MRSA Screen - Final
Nose No Methicillin Resistant Staphylococcus aureus isolated.
12/30/24 07:52 Legionella Urinary Antigen - Final
Urine Negative for Legionella pneumophila Serogroup 1 antigen.
A negative result does not rule out the possiblity of
Legionella infection due to other serogroups or species of
Legionella. Clinical correlation is recommended.
Streptococcus pneumoniae Antigen (M - Final
Negative for Streptococcus pneumoniae antigen.
A negative result does not exclude infection with
Streptococcus pneumoniae. Clinical correlation is
recommended.
12/30/24 02:24 Influenza Types A & B (DAVE) - Final
Nasal Swab Negative for Influenza A & B, NAAT
Negative results must be combined with clinical observations
and patient history.
Nucleic Acid Amplification test (NAAT)performed on the
[employer] platform.
Imaging:
01/02/2025 CXR (portable): Percutaneous right-sided chest tube in place. A small right pleural effusion is noted. Underlying pneumonia cannot be excluded. No pneumothorax noted. Dense nodule in the right upper lung field suggestive of a
granuloma. Please see full dictation for additional detail.
12/31/2024 CT chest w/o contrast : Near complete opacification of the right hemithorax related to combination of atelectatic changes and moderate effusion. There is complete atelectasis of the right lower lobe with opacified right lower lobar
bronchus. Near complete atelectasis of the right middle lobe and right upper lobe. As seen previously, small focus of gas within the right lower lobe suggesting probable cavitary pneumonia. There are also a few small foci of gas within the right
pleural effusion presumably related to infection. Right lung calcified granulomas, calcified hilar and mediastinal lymph nodes, sequela of previous granulomatous infection. Please see full dictation for additional detail. Film personally viewed.
[2025-01-06] MEDS: ROCEPHIN 2000 MG IV (11:26)
[2025-01-06] MEDS: STERILE WATER FOR INJECTION 20 ML IV (11:26)
--- NOTE | 2025-01-06 11:45 | W.PN.UPDATE ---
Update Note
Progress Note Update
Right upper lobe lateral chest tube not draining; CT Chest obtained this AM shows no residual fluid at this lateral region where the chest tube tip is located. Chest tube A removed at bedside without event. He feels much better once it was
removed. Right lower lobe chest tube remains in place. Spoke with Ct surgery and IR - plan to upsize RLL chest tube, and may need tPA/dornase if still not draining despite upsizing. Will continue to closely monitor the pt in IMU and continue with
serial CXR with eventual repeat Ct chest prior to discharge.
--- NOTE | 2025-01-06 14:00 | PTCARENOTE ---
Patient brought on stretcher to IR for chest tube replacement by patient transport. R chest tube in place. Verbal report given to IR RN.
[2025-01-06] MEDS: TYLENOL 1000 MG PO (15:34)
--- NOTE | 2025-01-06 15:41 | PTCARENOTE ---
Patient arrived back to IMU from IR post chest tube replacement. Chest tube in place. Dressing C/D/I. VSS. Call moser within reach, bed in lowest position, and bed of wheels locked.
--- NOTE | 2025-01-06 16:30 | PTCARENOTE ---
Patient AOx3. Has flat affect. Patient on RA with SpO2 greater than 92% VSS. NSR on monitor. R lung diminished throughout. R side chest tube in place with no output. Dressing C/D/I. Chest tube to -20 wall suction. Second R side chest tube removed by
MD at bedside. Patient complaining of R sided chest pain. PRN Tylenol given per NOV. Patient utilizes urinal with yellow urine. Tolerating diet. Assist x1 when OOB. Call moser within reach, bed in lowest position, and bed of wheels locked.
[2025-01-06] MEDS: LOVENOX 40 MG SC (17:01)
[2025-01-06] MEDS: SEROQUEL 50 MG PO (20:20)
[2025-01-06] MEDS: MOTRIN 600 MG PO (20:20)
--- NOTE | 2025-01-06 21:22 | PTCARENOTE ---
Pt received at beginning of shift resting in bed. AAOx3. VSS. POX RA 94%. Right posterior CT 'B' to -20cm wall suction. No air leaks, tidaling or crepitus. Small amount s/s drainage in tubing from chest tube site, no drainage in canister. Pt admits
to 5/10 pain to right posterior back. Chest tube 'A' removed on day shift. Dressing c/d/i. No crepitus noted. Requesting something to sleep. Medicated with Seroquel and Motrin as ordered. Right lung very diminished. 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
Pt using IS at bedside up to 1000. SR/ST on CM. Using urinal at bedside. Rest of assessment as documented. Turns self in bed. Refuses pillows under calves. Call moser remains within reach. Will continue to monitor.
[2025-01-07] VITALS (11 sets, daily range): BP systolic 112–159; BP diastolic 62–94
[2025-01-07 04:02] LABS: Hemoglobin 12.1 g/dL (13.0-18.0); Mean Corp Hgb Conc. 32.7 g/dL (33.0-37.0); Mean Corpuscular Hgb 28.3 pg (27.0-31.0); Mean Corpuscular Volume 86.7 fL (80.0-94.0); Mean Platelet Volume 9.2 fL (7.4-10.4); Platelet Count 774 10^3/uL (130-400); Red Blood Cell Count 4.27 10^6/uL (4.70-6.10); Red Cell Dist. Width 13.4 % (11.5-14.5); White Blood Cell Count 17.3 10^3/uL (4.8-10.8)
[2025-01-07] MEDS: COLACE PO ×2 (07:21→20:18)
[2025-01-07] MEDS: ABILIFY 10 MG PO (07:21)
[2025-01-07] MEDS: NICODERM TRANSDERMAL 21 MG TRANSDERM (07:21)
[2025-01-07] MEDS: MIRALAX PO (07:21)
[2025-01-07] MEDS: MUCINEX 600 MG PO ×2 (07:21→20:18)
[2025-01-07] MEDS: REQUIP 1 MG PO ×2 (07:21→20:18)
--- NOTE | 2025-01-07 08:35 | W.PN.HOSP.TC ---
Today's Communication/Plan
-
Continue current care
Assessment / Plan
Assessment / Plan
Gen-AAOx3, NAD
HEENT-NC, AT, anicteric, clear oral mm
Neck-supple
CV-reg, no M, +S1/S2
Lungs-clear B/L
Abd-soft, NT, ND
Ext-no edema
Musculoskeletal-no cyanosis, clubbing
Skin-warm and dry
Neuro-grossly non-focal
Psych-calm, cooperative
Acute hypoxic respiratory insufficiency (POA) -due to sepsis, pneumonia, empyema. Oxygenation improved, now on room air. Denies chest pain or shortness of breath. Has a mild cough now.
Sepsis due to necrotizing community-acquired pneumonia pneumonia/empyema -WBC count trending down. Completed course of steroids. Last fever 01/01 AM. Hemodynamically stable. Blood cultures negative. Sputum and pleural fluid culture with group C
streptococcus.
Lactic acidosis resolved. Infectious disease input noted. Continue IV ceftriaxone per ID.
Right lower lobe necrotizing pneumonia and empyema with near complete right lung collapse -repeat CT chest this morning shows significantly improved complex right pleural effusion. Small loculated collection of fluid and air seen along the medial
pleural surface. Significantly improved compared to prior study. Still with dense airspace consolidation in the right lower lobe consistent with severe pneumonia. Granulomatous lymph nodes noted.
Pulmonary removed right upper lobe chest tube 01/06. Right lower lobe chest tube remains in place.
Chest x-ray today reviewed, does show some improvement in right sided pleural fluid. Official read pending.
CT surgery recommends conservative management.
Of note patient was on prednisone 20 mg daily for 1 week prior to admission. He believes that it was started for wheezing and coughing in his rehab facility. Denies history of asthma.
Completed 5 days of prednisone 40 mg daily, last dose 01/03.
History of polysubstance abuse:
On atomoxetine and Requip
On Abilify
On Seroquel as needed
Tobacco dependence
On nicotine patch
Obesity due to excess calories
DVT prophylaxis:
Lovenox SQ
Full code
Anticipated Discharge: > 48 hours
Subjective/Interval History
-
Date of Service: January 07, 2025
Patient seen and examined. No complaints.
Objective Data
-
Labs:
Laboratory Results
01/07/25
03:15
WBC 17.3 H
Hgb 12.1 L
Hct 37.0 L
Plt Count 774 H
Vital Signs:
Vital Signs
Temp Pulse Resp BP Pulse Ox
97.9 F 104 21 128/75 95
01/07/25 03:00 01/07/25 08:00 01/07/25 08:00 01/07/25 06:00 01/07/25 08:00
I&O
01/06/25 01/07/25 01/08/25
06:59 06:59 06:59
Intake Total 1440 / 1440
Output Total 510 / 510 1050 / 1050
Balance -510 / -510 390 / 390
Review of Systems
-
History Source: Patient
All other systems: Reviewed and negative
--- NOTE | 2025-01-07 08:48 | W.PN.ID1 ---
Date of Service
Date of Service: January 07, 2025
Today's Communication
Continue antibiotics.
Assessment / Plan
Right-sided pneumonia 2* Gp. C Streptococcus
Right empyema with growth of Gp C Streptococcus
Leukocytosis
Fever
Thrombocytosis
Hx methamphetamine use; clean
Recommendations:
Continue ceftriaxone 2gm IV q24h (d#9 abx). Patient will need 6-week course of antibiotics.
Monitor white count and temperature curve.
Follow chest CT and chest x-ray for improvement.
����������������������������������������������������������
Chief Complaint
-: Pneumonia and Other (Right Empyema)
Subjective / Review of Systems
Patient seen and examined. One chest tube removed since yesterday. Denies pleuritic chest pain.
Review of Systems: No Fever and No Chills
Vital Signs / Physical Exam
Vital Signs
Vital Signs
Temp Pulse Resp BP Pulse Ox
97.9 F 104 21 128/75 95
01/07/25 03:00 01/07/25 08:00 01/07/25 08:00 01/07/25 06:00 01/07/25 08:00
Physical Exam
Constitutional: No Acute Distress, Comfortable and Non-toxic
Eyes: Sclera Anicteric
Cardiovascular: S1/S2; Negative S3/S4
Pulmonary: Non Labored and Other (Right chest tube in place)
Gastrointestinal: Soft, Non Tender and Non Distended
Skin: Negative Rash or Jaundice
Neurological: Awake, Alert and Oriented
Psychological: Calm
Objective Data
Lab Data
Lab Results
01/07/25 03:15
01/04/25 03:45
Estimated Creat Clear > 125 ml/min 01/04/25 03:45
Lactic Acid 1.8 mmol/L (0.7-2.0) 12/30/24 04:59
Total Bilirubin Cancelled 12/30/24 06:00
AST Cancelled 12/30/24 06:00
ALT Cancelled 12/30/24 06:00
Alkaline Phosphatase Cancelled 12/30/24 06:00
Most recent labs reviewed.
Micro Results:
12/31/24 11:13 Body Fluid Culture - Final
Pleural Fluid Group C Streptococcus
Gram Stain - Final
12/30/24 02:57 Blood Culture - Final
Blood/Venous No Growth - Final Report
12/30/24 02:24 Blood Culture - Final
Blood/Venous No Growth - Final Report
12/30/24 09:55 Respiratory Culture - Final
Sputum Group C Streptococcus
Gram Stain - Final
12/30/24 04:58 MRSA Screen - Final
Nose No Methicillin Resistant Staphylococcus aureus isolated.
12/30/24 07:52 Legionella Urinary Antigen - Final
Urine Negative for Legionella pneumophila Serogroup 1 antigen.
A negative result does not rule out the possiblity of
Legionella infection due to other serogroups or species of
Legionella. Clinical correlation is recommended.
Streptococcus pneumoniae Antigen (M - Final
Negative for Streptococcus pneumoniae antigen.
A negative result does not exclude infection with
Streptococcus pneumoniae. Clinical correlation is
recommended.
12/30/24 02:24 Influenza Types A & B (DAVE) - Final
Nasal Swab Negative for Influenza A & B, NAAT
Negative results must be combined with clinical observations
and patient history.
Nucleic Acid Amplification test (NAAT)performed on the
[employer] platform.
Imaging:
01/02/2025 CXR (portable): Percutaneous right-sided chest tube in place. A small right pleural effusion is noted. Underlying pneumonia cannot be excluded. No pneumothorax noted. Dense nodule in the right upper lung field suggestive of a
granuloma. Please see full dictation for additional detail.
12/31/2024 CT chest w/o contrast : Near complete opacification of the right hemithorax related to combination of atelectatic changes and moderate effusion. There is complete atelectasis of the right lower lobe with opacified right lower lobar
bronchus. Near complete atelectasis of the right middle lobe and right upper lobe. As seen previously, small focus of gas within the right lower lobe suggesting probable cavitary pneumonia. There are also a few small foci of gas within the right
pleural effusion presumably related to infection. Right lung calcified granulomas, calcified hilar and mediastinal lymph nodes, sequela of previous granulomatous infection. Please see full dictation for additional detail. Film personally viewed.
[2025-01-07] MEDS: STERILE WATER FOR INJECTION 20 ML IV (11:07)
[2025-01-07] MEDS: ROCEPHIN 2000 MG IV (11:07)
[2025-01-07 12:28] LABS: Absolute Neutrophils -Man Diff 12.8 10^3/uL (1.4-6.5); Band Neutrophils 3 % (0-3); Lymphocytes 16 % (20-51); Segmented Neutrophils 71 % (42-75)
[2025-01-07 12:29] LABS: Eosinophils 4 % (0-6); Metamyelocytes 1 % (-); Monocytes 4 % (2-9); Myelocytes 1 % (-)
[2025-01-07 12:31] LABS: Normal RBC Morphology Yes; Platelets Checked Yes
[2025-01-07 12:32] LABS: Hypersegmented Neutrophil 1+; Total Cells Counted 100
--- NOTE | 2025-01-07 14:20 | W.PN.PUL3 ---
Today's Communication / Plan
-
Removed chest tube 'A' on 01/06
Today, removed chest tube that was upsized to a 12 Fr and right basilar lung field given no output and minimal significant pleural fluid remaining based on CT chest from today (01/07)
Serial CXR
ABx as per ID with eventual PICC prior to discharge
Pain control
Up OOB as tolerated; PT/OT
Nicotine patch
CT surgery following
Pulmonary service will continue to follow along
Assessment
-
Patient is a very pleasant 24-year-old gentleman with history of drug use in the past, reportedly sober over the last 4 months who presents to emergency room from a rehab facility with worsening shortness of breath. Patient reports about 5 to 6
days of cough with yellowish expectoration. Reports some flulike symptoms prior to that. Does report history of some sick contacts at the facility where he lives. In the emergency room he also was noted to have some pleuritic discomfort on the
right side. He had a CT performed which was suggestive of necrotizing pneumonia in the right lower lobe along with small amount of gas within pleural effusion. Patient was admitted to the hospital and started on IV antibiotics. Pulmonary
consultation was requested for further input.
Right lower lobe necrotizing pneumonia due to group C streptococcus
Right sided empyema due to group C streptococcus - status post chest tubes x 2
- Right lateral 14 Fr chest tube ('A') placed by vibration analyst on 12/31/2024 --> removed on 01/06/[address] chest findings on 01/06
- Right posterior 8.5 Fr chest tube ('B') placed by IR on 01/03/2025 --> upsized to a 12 Fr on 01/06
Leukocytosis
Anemia
History of methamphetamine use (abstinent since August 2024)
Tobacco use disorder
History of anxiety
Plan
Respiratory status has improved
Remains off oxygen since 01/04 and is breathing comfortably
He worked with PT 5/1 and did well without any significant respiratory complaints
Continue PT/OT as tolerated
Incentive spirometry encouraged
Mucus clearing devices if needed
Analgesia
Mucolytics
Nebulizers as needed
s/p prednisone 40 mg daily (given 12/30 - 01/03/2025)
Chest tube 'A' drained 5 cc overnight from 01/04 - 01/05/2025, and continued to have no output on 01/06. CT Chest from 01/06 showed no fluid seen at the distal tip of this chest tube --> tube was removed (see separate update note from 01/06/2025).
- Ct Chest also shows continued small loculated fluid collection in the right base with chest tube within this collection. Given that this is a small 8.5 [place] chest tube, recommend to upsize chest tube by IR, which was upsized to a 12 Fr on 01/06.
Unfortunately this chest tube also has no output. CT chest was repeated on 01/07 showing insignificant right-sided pleural fluid. Discussion held between myself and IR and chest tube was removed.
- CT surgery remains on the case. He will be re-evaluated Thursday by CT surgery and if effusion increases or if he develops fevers/chills, or worsening leukocytosis, then decortication would be likely best next step -we will defer this final decision
to CT surgery (Dr. Dotson)
- tPA/DNase was given x 3 (12/31 - 01/01) to the right lateral chest tube
Cultures reviewed:
Sputum culture 12/30/2024-group C streptococcus
Pleural fluid 12/31/24-group C streptococcus
MRSA screen negative
Blood cultures negative
Influenza negative
Continue antibiotics as per ID-currently on Rocephin 2 g daily
Infectious disease correspondence reviewed and appreciated
Smoking cessation counseling
Nicotine patch
Nicorette gum
DVT prophylaxis-on Lovenox
Nutrition
Early mobilization; PT/OT
Outpatient pulmonary follow-up including follow-up CT chest
Pulmonary service will continue to follow along.
Reviewed the patient's pertinent medical records including radiographs, microbiology, laboratory evaluations, and discussion with primary team, consultants, pharmacy, nutrition, physical therapy, case management, charge nurse, critical care
nursing, and respiratory therapy.
Data:
CT-PE 12/2024: 1. No large central pulmonary embolism. Evaluation of peripheral pulmonary arteries is limited by patient respiratory motion artifact.
2. Severe right lower lobe pneumonia, with areas of internal necrosis and cavitation.
3. Small associated right pleural effusion. Small amount of gas within the right pleural effusion.
4. Right hilar lymphadenopathy, likely reactive.
5. Evidence of prior granulomatous disease.
CT Chest without Contrast 01/06/2025:
1. Significantly improved complex right pleural effusion compared to prior CT dated 01/02/2025.
2. Small loculated collection of fluid and air is seen along the medial pleural surface as detailed above, significantly improved in size compared to prior study.
3. There is an ovoid collection of fluid and air within or adjacent to the consolidated right lower lobe. This is felt to most likely represent a locule of pleural fluid, however may also represent necrotic pneumonia.
4. Dense airspace consolidation within the right lower lobe, consistent with severe pneumonia.
5. Granulomatous lymph nodes within the mediastinum and right hilum. Small calcified granuloma within the right upper lobe.
Chest x-ray 01/02/25-small right pleural effusion improved, underlying pneumonia
CT chest 01/02/25-moderate loculated right pleural effusion improved from CT, moderate right lower lobe consolidation
Total time spent today was 38 minutes for this encounter. Time includes reviewing laboratory test/imaging results, reviewing pertinent medical records, obtaining and reviewing medical history, performing an appropriate exam, ordering medications,
tests and procedures. Time also includes documentation of this encounter, coordinating patient care and communicating with other healthcare professionals. Total time does not include separately billed tests performed on this date of service.
Subjective Data
-
Date of Service:
Date of Service: January 07, 2025
Chief Complaint: Pulmonary Follow Up and Dyspnea Follow Up
Subjective:
Patient seen today at bedside (late note entry). Right-sided chest tube in the base was upsized yesterday. No output from the chest tube. Although her right lateral chest tube was removed yesterday. He is getting anxious and wants to leave. He
otherwise feels well, denying LUA, chest pain, nausea, fevers or chills. Heart rate 98, BP 142/91 and saturating 96% on room air.
Review of Systems
General: Other (Negative unless mentioned above)
Objective Data
Data Reviewed
Vital Signs / I&O / Oxygen:
Vital Signs
Temp Pulse Resp BP Pulse Ox
98.1 F 92 17 125/72 95
01/07/25 07:10 01/07/25 10:00 01/07/25 10:00 01/07/25 10:00 01/07/25 10:00
Intake and Output
01/06/25 01/07/25 01/08/25
06:59 06:59 06:59
Intake Total 1440 / 1440 480 / 480
Output Total 510 / 510 1050 / 1050
Balance -510 / -510 390 / 390 480 / 480
SaO2 95
Nasal Cannula flow liters per 3
minute
Physical Exam
General: Respiratory Distress (n), Comfortable, Chills (n) and Sweats (n)
HEENT: Normocephalic, Anicteric and Moist Mucous Membranes
Cardiovascular: S1-S2, Rub (n) and Peripheral Edema (n)
Respiratory: Wheeze (nn), Crackles (Bilaterally (R >L)), Rhonchi (Bilaterally (R >L)), Non-Labored Respirations, Accessory Resp Muscle Use (n), Chest Tube (right posterior chest tube attached to suction, with no airleak) and Other (Diminished breath
sounds right base)
GI: Soft, Distended (Abdominal obesity), Non Tender and Normal Bowel Sounds
Neurology: AO x 3 and Tremors (n)
Skin: Warm, Dry, Cyanosis (n) and Jaundice (n)
Labs/Micro/Reports
Lab Data
01/07/25 03:15
01/04/25 03:45
Microbiology
12/31/24 11:13 Pleural Fluid Body Fluid Culture - Final
Group C Streptococcus
12/31/24 11:13 Pleural Fluid Gram Stain - Final
--- NOTE | 2025-01-07 15:09 | PTCARENOTE ---
Patient AOx3. Has flat affect. Patient on RA with SpO2 greater than 92% VSS. NSR-sinus tach on monitor. R lung diminished throughout. R side chest tube in place with no output. Dressing C/D/I. Chest tube to -20 wall suction. Patient utilizes urinal
with yellow urine. Tolerating diet. Assist x1 when OOB. Call moser within reach, bed in lowest position, and bed of wheels locked.
[2025-01-07] MEDS: LOVENOX 40 MG SC (17:14)
--- NOTE | 2025-01-07 17:35 | W.PN.UPDATE ---
Update Note
Progress Note Update
Discussed case with IR as the patient's new upsized chest tube placed yesterday has no output. CT chest obtained showing a small right-sided pleural effusion with dense right lower lobe consolidation. I discussed the case with Dr. Galdamez from IR,
and we agreed to remove the chest tube given it's not putting out any fluid. Also no airleak. Chest tube removed without incident. Patient feels much better.
[2025-01-07] MEDS: ATARAX 50 MG PO (17:37)
--- NOTE | 2025-01-07 17:42 | PTCARENOTE ---
Patient asked the PCT to speak to RN. This RN to bedside. Patient stated 'I want to leave now'. When this RN asked why patient would like to leave he stated 'please send the doctor in here'. Dr. Ling, Dr. Anglin, and Dr. Jain (hospitalist
cross coverage) made aware. Dr. Jain and Dr. Anglin at bedside. Patient stated that he changed his mind and does not want to leave because the facility that he is from will not take him back if he leaves AMA. Patient admits to feeling anxious,
but refused taking PRN medication. Atarax given per MD order. Care ongoing.
--- NOTE | 2025-01-07 18:45 | PTCARENOTE ---
removed chest tube at bedside. Dressing C/D/I. VSS. SpO2 95% on RA. Care ongoing.
[2025-01-07] MEDS: SEROQUEL 50 MG PO (20:21)
[2025-01-08] VITALS (13 sets, daily range): BP systolic 105–145; BP diastolic 58–123
[2025-01-08] MEDS: TYLENOL 1000 MG PO (00:04)
--- NOTE | 2025-01-08 00:11 | PTCARENOTE ---
Upon hourly rounds pt skin slightly hot to touch. Temp 100.7. Medicated with Tylenol 1grm per pt request. Pt ambulate to bathroom to void. Assisted back to bed and currently comfortable. Pt denies pain or discomfort. Dressing right posterior
chest/back with small amount old serous drainage. Right lateral chest dressing c/d/i. Pt turning self in bed. Call moser remains within reach. Will continue to monitor.
[2025-01-08 05:34] LABS: Hematocrit 37.8 % (39.0-52.0); Hemoglobin 12.7 g/dL (13.0-18.0); Mean Corp Hgb Conc. 33.6 g/dL (33.0-37.0); Mean Corpuscular Hgb 28.9 pg (27.0-31.0); Mean Corpuscular Volume 85.9 fL (80.0-94.0); Mean Platelet Volume 9.1 fL (7.4-10.4); Platelet Count 763 10^3/uL (130-400); Red Cell Dist. Width 13.2 % (11.5-14.5); White Blood Cell Count 17.6 10^3/uL (4.8-10.8)
--- NOTE | 2025-01-08 08:28 | W.PN.HOSP.TC ---
Addendum entered and electronically signed by Chucho Ling DO 01/08/25 15:50:
Unfortunately, the [facility] can not accommodate IV antibiotics.
I spoke with cyanide case hardener today and requested that we start looking into alternative placement options, as patient still requires minimum of 3 weeks IV Ceftriaxone and today is day 10. Potential transition to oral antibiotic after completion of IV
course. Total duration of antibiotics to be [address] Naranjo.
If IV Ceftriaxone can be arranged, then he can be discharged.
log yard manager (Roselyn) said she will consult with her colleagues and get back to us.
Original Note:
Today's Communication/Plan
-
Await ID input
Assessment / Plan
Assessment / Plan
Gen-AAOx3, NAD
HEENT-NC, AT, anicteric, clear oral mm
Neck-supple
CV-reg, no M, +S1/S2
Lungs-decreased breath sounds at the right base
Abd-soft, NT, ND
Ext-no edema
Musculoskeletal-no cyanosis, clubbing
Skin-warm and dry
Neuro-grossly non-focal
Psych-calm, cooperative
Acute hypoxic respiratory insufficiency (POA) -due to sepsis, pneumonia, empyema. Oxygenation improved, now on room air. Denies chest pain or shortness of breath. Has a mild cough now.
Sepsis due to necrotizing community-acquired pneumonia pneumonia/empyema -WBC count 17.6k today. Low-grade fever noted last night. 100.7 �F. Completed course of steroids. Last fever 01/01 AM. Hemodynamically stable. Blood cultures negative.
Sputum and pleural fluid culture with group C streptococcus.
Lactic acidosis resolved. Infectious disease input noted. Continue IV ceftriaxone per ID. Anticipate 6 weeks of antibiotics per ID.
Right lower lobe necrotizing pneumonia and empyema with near complete right lung collapse -repeat CT chest this morning shows significantly improved complex right pleural effusion. Small loculated collection of fluid and air seen along the medial
pleural surface. Significantly improved compared to prior study. Still with dense airspace consolidation in the right lower lobe consistent with severe pneumonia. Granulomatous lymph nodes noted.
All chest tubes have now been removed.
Chest x-ray from today shows no pneumothorax, stable appearance of the right lung base.
CT surgery recommends conservative management.
Of note patient was on prednisone 20 mg daily for 1 week prior to admission. He believes that it was started for wheezing and coughing in his rehab facility. Denies history of asthma.
Completed 5 days of prednisone 40 mg daily, last dose 01/03.
History of polysubstance abuse:
On atomoxetine and Requip
On Abilify
On Seroquel as needed
Tobacco dependence
On nicotine patch
Obesity due to excess calories
DVT prophylaxis:
Lovenox SQ
Full code
Dispo -will need to arrange for antibiotics on discharge.
Anticipated Discharge: Within 24 hours
Subjective/Interval History
-
Date of Service: January 08, 2025
Patient seen and examined. No complaints.
Objective Data
-
Labs:
Laboratory Results
01/08/25
04:52
WBC 17.6 H
Hgb 12.7 L
Hct 37.8 L
Plt Count 763 H
Vital Signs:
Vital Signs
Temp Pulse Resp BP Pulse Ox
97.8 F 90 21 112/62 94
01/08/25 07:22 01/08/25 06:00 01/08/25 04:00 01/08/25 06:00 01/08/25 06:00
I&O
01/07/25 01/08/25 01/09/25
06:59 06:59 06:59
Intake Total 1440 / 1440 960 / 960
Output Total 1050 / 1050 0 / 0
Balance 390 / 390 960 / 960
Review of Systems
-
History Source: Patient
All other systems: Reviewed and negative
--- NOTE | 2025-01-08 08:57 | CM ---
CM reviewed previous notes. As per prior CM notes it was reiterated to Dr Rankin this morning that patient will be able to return and they are holding bed, however CANNOT return with IV Abx, narcotics, drains or tubes. PO abx is premitted.
CM/SW will continue to follow
[2025-01-08] MEDS: NICODERM TRANSDERMAL 21 MG TRANSDERM (09:05)
[2025-01-08] MEDS: MUCINEX 600 MG PO ×2 (09:05→19:50)
[2025-01-08] MEDS: REQUIP 1 MG PO ×2 (09:05→19:50)
[2025-01-08] MEDS: ABILIFY 10 MG PO (09:05)
[2025-01-08] MEDS: COLACE PO ×2 (09:08→19:50)
[2025-01-08] MEDS: MIRALAX PO (09:08)
--- NOTE | 2025-01-08 10:05 | W.PN.ID1 ---
Date of Service
Date of Service: January 08, 2025
Today's Communication
Continue antibiotics. See below�
Assessment / Plan
Right-sided pneumonia 2* Gp. C Streptococcus
Right empyema with growth of Gp C Streptococcus
Leukocytosis
Fever
Thrombocytosis
Hx methamphetamine use; clean
Recommendations:
Continue ceftriaxone 2gm IV q24h (d#10 abx).
Patient will need 6-week course of antibiotics; with at least 3 weeks being via the IV route, and then potential transition to oral antibiotics if remains stable.
Monitor white count and temperature curve.
Follow-up chest x-ray in 6 to 8 weeks.
����������������������������������������������������������
Chief Complaint
-: Pneumonia and Other (Right Empyema)
Subjective / Review of Systems
Patient seen and examined. Reports feeling well. Since yesterday's exam, second chest tube has been removed.
Review of Systems: No Fever, No Chills, No Cough and No Sputum Production
Vital Signs / Physical Exam
Vital Signs
Vital Signs
Temp Pulse Resp BP Pulse Ox
97.8 F 90 21 112/62 94
01/08/25 07:22 01/08/25 06:00 01/08/25 04:00 01/08/25 06:00 01/08/25 06:00
Physical Exam
Constitutional: No Acute Distress, Comfortable and Non-toxic
Eyes: Sclera Anicteric
Cardiovascular: S1/S2; Negative S3/S4
Pulmonary: Non Labored; Negative Wheezes or Rales
Gastrointestinal: Soft, Non Tender and Non Distended
Skin: Negative Rash or Jaundice
Neurological: Awake, Alert and Oriented
Psychological: Calm
Objective Data
Lab Data
Lab Results
01/08/25 04:52
01/04/25 03:45
Estimated Creat Clear > 125 ml/min 04/30/25 03:45
Lactic Acid 1.8 mmol/L (0.7-2.0) 12/30/24 04:59
Total Bilirubin Cancelled 12/30/24 06:00
AST Cancelled 12/30/24 06:00
ALT Cancelled 12/30/24 06:00
Alkaline Phosphatase Cancelled 12/30/24 06:00
Most recent labs reviewed.
Micro Results:
12/31/24 11:13 Body Fluid Culture - Final
Pleural Fluid Group C Streptococcus
Gram Stain - Final
12/30/24 02:57 Blood Culture - Final
Blood/Venous No Growth - Final Report
12/30/24 02:24 Blood Culture - Final
Blood/Venous No Growth - Final Report
12/30/24 09:55 Respiratory Culture - Final
Sputum Group C Streptococcus
Gram Stain - Final
12/30/24 04:58 MRSA Screen - Final
Nose No Methicillin Resistant Staphylococcus aureus isolated.
12/30/24 07:52 Legionella Urinary Antigen - Final
Urine Negative for Legionella pneumophila Serogroup 1 antigen.
A negative result does not rule out the possiblity of
Legionella infection due to other serogroups or species of
Legionella. Clinical correlation is recommended.
Streptococcus pneumoniae Antigen (M - Final
Negative for Streptococcus pneumoniae antigen.
A negative result does not exclude infection with
Streptococcus pneumoniae. Clinical correlation is
recommended.
12/30/24 02:24 Influenza Types A & B (DAVE) - Final
Nasal Swab Negative for Influenza A & B, NAAT
Negative results must be combined with clinical observations
and patient history.
Nucleic Acid Amplification test (NAAT)performed on the
[employer] platform.
Imaging:
01/02/2025 CXR (portable): Percutaneous right-sided chest tube in place. A small right pleural effusion is noted. Underlying pneumonia cannot be excluded. No pneumothorax noted. Dense nodule in the right upper lung field suggestive of a
granuloma. Please see full dictation for additional detail.
12/31/2024 CT chest w/o contrast : Near complete opacification of the right hemithorax related to combination of atelectatic changes and moderate effusion. There is complete atelectasis of the right lower lobe with opacified right lower lobar
bronchus. Near complete atelectasis of the right middle lobe and right upper lobe. As seen previously, small focus of gas within the right lower lobe suggesting probable cavitary pneumonia. There are also a few small foci of gas within the right
pleural effusion presumably related to infection. Right lung calcified granulomas, calcified hilar and mediastinal lymph nodes, sequela of previous granulomatous infection. Please see full dictation for additional detail. Film personally viewed.
Care Review
Plan reviewed with: Physician (Hospitalist)
[2025-01-08] MEDS: ROCEPHIN 2000 MG IV (11:50)
[2025-01-08] MEDS: STERILE WATER FOR INJECTION 20 ML IV (11:51)
[2025-01-08] MEDS: NICORETTE 2 MG PO (12:18)
--- NOTE | 2025-01-08 15:29 | PTCARENOTE ---
Patient having periods of anxiety today related to prolonged hospital stay. Anxiety relieved with therapeutic communication and ambulation in halls with nurse. Patients nicotene withdrawal treated with nicotene patch and gum prn. Pulse ox on room
air is 95%. Dressings intact on discontinued chest tube sites. Patient compliant with plan if care. Has two visitors from current housing today. Denying pain when asked.
--- NOTE | 2025-01-08 15:51 | W.PN.PUL3 ---
Today's Communication / Plan
-
Removed chest tube 'A' on 01/06
On 01/07, removed chest tube that was upsized to a 12 Fr into right basilar lung field given no output and minimal significant pleural fluid remaining based on CT chest from 01/07
CXR holiday tomorrow
ABx as per ID -he will need to stay hospitalized for IV antibiotics as he cannot be sent to his rehab with the PICC line
Pain control
Up OOB as tolerated; PT/OT
Nicotine patch
CT surgery following
Pulmonary service will continue to briefly follow along
Assessment
-
Patient is a very pleasant 24-year-old gentleman with history of drug use in the past, reportedly sober over the last 4 months who presents to emergency room from a rehab facility with worsening shortness of breath. Patient reports about 5 to 6
days of cough with yellowish expectoration. Reports some flulike symptoms prior to that. Does report history of some sick contacts at the facility where he lives. In the emergency room he also was noted to have some pleuritic discomfort on the
right side. He had a CT performed which was suggestive of necrotizing pneumonia in the right lower lobe along with small amount of gas within pleural effusion. Patient was admitted to the hospital and started on IV antibiotics. Pulmonary
consultation was requested for further input.
Right lower lobe necrotizing pneumonia due to group C streptococcus
Right sided empyema due to group C streptococcus - status post chest tubes x 2
- Right lateral 14 Fr chest tube ('A') placed by firmware developer on 12/31/2024 --> removed on 01/06/[address] chest findings on 01/06
- Right posterior 8.5 Fr chest tube ('B') placed by IR on 01/03/2025 --> upsized to a 12 Fr on 01/06 --> removed on 01/07/2025 given zero output and minimal fluid seen on repeat CT Chest on 01/07
Leukocytosis
Anemia
History of methamphetamine use (abstinent since August 2024)
Tobacco use disorder
History of anxiety
Plan
Respiratory status has improved
Remains off oxygen since 01/04 and is breathing comfortably
He worked with PT 01/05 and did well without any significant respiratory complaints
Continue PT/OT as tolerated
Incentive spirometry encouraged
Mucus clearing devices if needed
Analgesia
Mucolytics
Nebulizers as needed
s/p prednisone 40 mg daily (given 12/30 - 01/03/2025)
Chest tube 'A' drained 5 cc overnight from 01/04 - 01/05/2025, and continued to have no output on 01/06. CT Chest from 01/06 showed no fluid seen at the distal tip of this chest tube --> tube was removed (see separate update note from 01/06/2025).
- Ct Chest also shows continued small loculated fluid collection in the right base with chest tube within this collection. Given that this is a small 8.5 Estonian chest tube, recommend to upsize chest tube by IR, which was upsized to a 12 Fr on 01/06.
Unfortunately this chest tube also has no output. CT chest was repeated on 01/07 showing insignificant right-sided pleural fluid. Discussion held between myself and IR and chest tube was removed on 01/07
- CT surgery remains on the case. He will be re-evaluated tomorrow (01/09) by CT surgery and if effusion increases or if he develops persistent fevers/chills, or worsening leukocytosis, then decortication would be likely best next step -we will defer
this final decision to CT surgery (Dr. Dotson)
- tPA/DNase was given x 3 (12/31 - 01/01) to the right lateral chest tube
Cultures reviewed:
Sputum culture 12/30/2024-group C streptococcus
Pleural fluid 12/31/24-group C streptococcus
MRSA screen negative
Blood cultures negative
Influenza negative
Continue antibiotics as per ID-currently on Rocephin 2 g daily
Infectious disease correspondence reviewed and appreciated
Smoking cessation counseling
Nicotine patch
Nicorette gum
DVT prophylaxis-on Lovenox
Nutrition
Early mobilization; PT/OT
Outpatient pulmonary follow-up including follow-up CT chest
Pulmonary service will continue to briefly follow along.
Reviewed the patient's pertinent medical records including radiographs, microbiology, laboratory evaluations, and discussion with primary team, consultants, pharmacy, nutrition, physical therapy, case management, charge nurse, critical care
nursing, and respiratory therapy.
Data:
CT-PE 12/2024: 1. No large central pulmonary embolism. Evaluation of peripheral pulmonary arteries is limited by patient respiratory motion artifact.
2. Severe right lower lobe pneumonia, with areas of internal necrosis and cavitation.
3. Small associated right pleural effusion. Small amount of gas within the right pleural effusion.
4. Right hilar lymphadenopathy, likely reactive.
5. Evidence of prior granulomatous disease.
CT Chest without Contrast 01/06/2025:
1. Significantly improved complex right pleural effusion compared to prior CT dated 01/02/2025.
2. Small loculated collection of fluid and air is seen along the medial pleural surface as detailed above, significantly improved in size compared to prior study.
3. There is an ovoid collection of fluid and air within or adjacent to the consolidated right lower lobe. This is felt to most likely represent a locule of pleural fluid, however may also represent necrotic pneumonia.
4. Dense airspace consolidation within the right lower lobe, consistent with severe pneumonia.
5. Granulomatous lymph nodes within the mediastinum and right hilum. Small calcified granuloma within the right upper lobe.
Chest x-ray 01/02/25-small right pleural effusion improved, underlying pneumonia
CT chest 01/02/25-moderate loculated right pleural effusion improved from CT, moderate right lower lobe consolidation
Total time spent today was 41 minutes for this encounter. Time includes reviewing laboratory test/imaging results, reviewing pertinent medical records, obtaining and reviewing medical history, performing an appropriate exam, ordering medications,
tests and procedures. Time also includes documentation of this encounter, coordinating patient care and communicating with other healthcare professionals. Total time does not include separately billed tests performed on this date of service.
Subjective Data
-
Date of Service:
Date of Service: January 08, 2025
Chief Complaint: Pulmonary Follow Up and Dyspnea Follow Up
Subjective:
Patient seen and evaluated today at bedside. He feels well but is depressed as he has to stay here for 3 weeks for IV antibiotics. Currently on room air, saturating 95% with heart rate 119. He otherwise feels well from respiratory standpoint,
denying chest pain shortness of breath. He had a fever overnight to 100.7 �F.
Review of Systems
General: Other (Negative unless mentioned above)
Objective Data
Data Reviewed
Vital Signs / I&O / Oxygen:
Vital Signs
Temp Pulse Resp BP Pulse Ox
97.8 F 90 21 112/62 94
01/08/25 07:22 01/08/25 06:00 01/08/25 04:00 01/08/25 06:00 01/08/25 06:00
Intake and Output
01/07/25 01/08/25 01/09/25
06:59 06:59 06:59
Intake Total 1440 / 1440 960 / 960
Output Total 1050 / 1050 0 / 0
Balance 390 / 390 960 / 960
SaO2 94
Nasal Cannula flow liters per 3
minute
Physical Exam
General: Respiratory Distress (n), Comfortable, Chills (n) and Sweats (n)
HEENT: Normocephalic, Anicteric and Moist Mucous Membranes
Cardiovascular: S1-S2, Rub (n) and Peripheral Edema (n)
Respiratory: Wheeze (n), Crackles (Bilaterally (R >L)), Rhonchi (Bilaterally (R >L)), Non-Labored Respirations, Accessory Resp Muscle Use (n) and Other (Diminished breath sounds right base)
GI: Soft, Distended (Abdominal obesity), Non Tender and Normal Bowel Sounds
Neurology: AO x 3 and Tremors (n)
Skin: Warm, Dry, Cyanosis (n) and Jaundice (n)
Labs/Micro/Reports
Lab Data
01/08/25 04:52
01/04/25 03:45
Microbiology
12/31/24 11:13 Pleural Fluid Body Fluid Culture - Final
Group C Streptococcus
12/31/24 11:13 Pleural Fluid Gram Stain - Final
[2025-01-08] MEDS: LOVENOX 40 MG SC (16:57)
[2025-01-08] MEDS: SEROQUEL 50 MG PO (19:50)
[2025-01-09] VITALS (15 sets, daily range): BP systolic 111–152; BP diastolic 64–96; PULSE 90; O2SAT 96
--- NOTE | 2025-01-09 00:37 | PTCARENOTE ---
assumed care of patient. pt is AAOx3, able to make needs known. pt is a self in the room, able to use bathroom without issues. 95% RA. no complaints of pain or SOB. dressings CDI where chest tubes were. nicotine patch noted to right upper arm. pt is
good spirits, happy chest tubes came out but a little sad about 3 more weeks of abx. positive environment maintained. care ongoing.
[2025-01-09] MEDS: MIRALAX PO (08:13)
[2025-01-09] MEDS: ABILIFY 10 MG PO (08:13)
[2025-01-09] MEDS: REQUIP 1 MG PO ×2 (08:13→20:20)
[2025-01-09] MEDS: MUCINEX 600 MG PO ×2 (08:13→20:20)
[2025-01-09] MEDS: NICODERM TRANSDERMAL 21 MG TRANSDERM (08:13)
[2025-01-09] MEDS: COLACE PO ×2 (08:13→21:03)
--- NOTE | 2025-01-09 08:45 | W.PN.HOSP.TC ---
Today's Communication/Plan
-
IV antibiotics
Assessment / Plan
Assessment / Plan
Gen-AAOx3, NAD
HEENT-NC, AT, anicteric, clear oral mm
Neck-supple
CV-reg, no M, +S1/S2
Lungs-decreased breath sounds at the right base
Abd-soft, NT, ND
Ext-no edema
Musculoskeletal-no cyanosis, clubbing
Skin-warm and dry
Neuro-grossly non-focal
Psych-calm, cooperative
A/P:
Acute hypoxic respiratory insufficiency (POA) -due to sepsis, pneumonia, empyema. Oxygenation improved, now on room air.
Sepsis due to necrotizing community-acquired pneumonia pneumonia/empyema - Hemodynamically stable. Blood cultures negative. Sputum and pleural fluid culture with group C streptococcus.
Lactic acidosis resolved. Infectious disease input noted. Continue IV ceftriaxone per ID. Anticipate 6 weeks of antibiotics per ID.
Right lower lobe necrotizing pneumonia and empyema with near complete right lung collapse -repeat CT chest showed significantly improved complex right pleural effusion. Small loculated collection of fluid and air seen along the medial pleural
surface. Significantly improved compared to prior study. Still with dense airspace consolidation in the right lower lobe consistent with severe pneumonia. Granulomatous lymph nodes noted.
All chest tubes have now been removed.
Chest x-ray from today showed no pneumothorax, stable appearance of the right lung base.
CT surgery recommends conservative management.
Of note patient was on prednisone 20 mg daily for 1 week prior to admission. He believes that it was started for wheezing and coughing in his rehab facility. Denies history of asthma.
Completed 5 days of prednisone 40 mg daily, last dose 01/03.
History of polysubstance abuse:
On atomoxetine and Requip
On Abilify
On Seroquel as needed
Tobacco dependence
On nicotine patch
Obesity due to excess calories
DVT prophylaxis:
Lovenox SQ
Full code
Dispo -will need to arrange for antibiotics on discharge an rehab that can take him. CM working on d/c dispo.
Total time spent on today's encounter was 52 minutes which included time spent in counseling the patient/family regarding diagnosis and treatment plan as listed above, goals of care, and symptom management. Case was discussed with nursing staff,
specialists, and care coordinators/case management. All labs and imaging personally reviewed by me. Remainder the time spent in detailed review of previous records, lab data, imaging, and other medical provider documentation.
Anticipated Discharge: 24 - 48 hours
Subjective/Interval History
-
Date of Service: January 09, 2025
No cp or sob. Afebrile
Objective Data
-
Vital Signs:
Vital Signs
Temp Pulse Resp BP Pulse Ox
98.1 F 96 16 122/75 95
01/09/25 03:00 01/09/25 08:00 01/09/25 08:00 01/09/25 08:00 01/09/25 08:00
I&O
01/08/25 01/09/25 01/10/25
06:59 06:59 06:59
Intake Total 960 / 960
Output Total 0 / 0
Balance 960 / 960
--- NOTE | 2025-01-09 09:58 | CM ---
Addendum entered by Jaquelin Manrique RN 01/09/25 10:50:
Spoke with [facility]; they do not take the patient's insurance.
Barriers to discharge/SNF placement are patient's age and Hx IV drug abuse.
Plan continued CM efforts for SNF for IV Abx.
Original Note:
Patient from [facility] with Hx polysubstance abuse with Dx sepsis due to necrotizing community acquired pneumonia/empyema.
Per ID 01/08/25: Continue ceftriaxone 2gm IV q24h, will need 6-week course of Abx with at least 3 weeks via IV route, then potential transition to oral Abx.
Spoke with [facility]; although [facility] take drug rehab patients with medical needs, they do not do IV Abx.
Spoke with [facility] for [facility] SNFs; they are unable to accept 25 yr old patients.
Phone call to [facility]; left message requesting review/response to referral.
8 SNF referrals placed. 7/8 SNFs declined thus far.
Plan follow up with [facility].
[2025-01-09] MEDS: ROCEPHIN 2000 MG IV (11:01)
[2025-01-09] MEDS: STERILE WATER FOR INJECTION 20 ML IV (11:01)
--- NOTE | 2025-01-09 11:13 | W.PN.ID1 ---
Date of Service
Date of Service: January 09, 2025
Today's Communication
Continue antibiotics. See below�
Assessment / Plan
Right-sided pneumonia 2* Gp. C Streptococcus
Right empyema with growth of Gp C Streptococcus
Leukocytosis
Fever
Thrombocytosis
Hx methamphetamine use; clean
Recommendations:
Continue ceftriaxone 2gm IV q24h (d#11 abx).
Patient will need 6-week course of antibiotics; with at least 3 weeks being via the IV route, and then potential transition to oral antibiotics if remains stable.
Given Rocephin's once daily, infusion and OID is an option.
Monitor white count and temperature curve.
Follow-up chest x-ray in 6 to 8 weeks.
����������������������������������������������������������
Chief Complaint
-: Pneumonia and Other (Right Empyema)
Subjective / Review of Systems
Review of Systems: No Fever, No Chills and No Cough
Vital Signs / Physical Exam
Vital Signs
Vital Signs
Temp Pulse Resp BP Pulse Ox
97.8 F 89 18 113/68 98
01/09/25 07:45 01/09/25 10:00 01/09/25 10:00 01/09/25 10:00 01/09/25 10:00
Physical Exam
Constitutional: No Acute Distress, Comfortable and Non-toxic
Eyes: Sclera Anicteric
Cardiovascular: S1/S2; Negative S3/S4
Pulmonary: Non Labored; Negative Wheezes or Rales
Gastrointestinal: Soft, Non Tender and Non Distended
Skin: Negative Rash or Jaundice
Neurological: Awake, Alert and Oriented
Psychological: Calm
Objective Data
Lab Data
Lab Results
01/08/25 04:52
01/04/25 03:45
Estimated Creat Clear > 125 ml/min 01/04/25 03:45
Lactic Acid 1.8 mmol/L (0.7-2.0) 12/30/24 04:59
Total Bilirubin Cancelled 12/30/24 06:00
AST Cancelled 12/30/24 06:00
ALT Cancelled 12/30/24 06:00
Alkaline Phosphatase Cancelled 12/30/24 06:00
Most recent labs reviewed.
Micro Results:
12/31/24 11:13 Body Fluid Culture - Final
Pleural Fluid Group C Streptococcus
Gram Stain - Final
12/30/24 02:57 Blood Culture - Final
Blood/Venous No Growth - Final Report
12/30/24 02:24 Blood Culture - Final
Blood/Venous No Growth - Final Report
12/30/24 09:55 Respiratory Culture - Final
Sputum Group C Streptococcus
Gram Stain - Final
12/30/24 04:58 MRSA Screen - Final
Nose No Methicillin Resistant Staphylococcus aureus isolated.
12/30/24 07:52 Legionella Urinary Antigen - Final
Urine Negative for Legionella pneumophila Serogroup 1 antigen.
A negative result does not rule out the possiblity of
Legionella infection due to other serogroups or species of
Legionella. Clinical correlation is recommended.
Streptococcus pneumoniae Antigen (M - Final
Negative for Streptococcus pneumoniae antigen.
A negative result does not exclude infection with
Streptococcus pneumoniae. Clinical correlation is
recommended.
12/30/24 02:24 Influenza Types A & B (DAVE) - Final
Nasal Swab Negative for Influenza A & B, NAAT
Negative results must be combined with clinical observations
and patient history.
Nucleic Acid Amplification test (NAAT)performed on the
[employer] platform.
Imaging:
01/02/2025 CXR (portable): Percutaneous right-sided chest tube in place. A small right pleural effusion is noted. Underlying pneumonia cannot be excluded. No pneumothorax noted. Dense nodule in the right upper lung field suggestive of a
granuloma. Please see full dictation for additional detail.
12/31/2024 CT chest w/o contrast : Near complete opacification of the right hemithorax related to combination of atelectatic changes and moderate effusion. There is complete atelectasis of the right lower lobe with opacified right lower lobar
bronchus. Near complete atelectasis of the right middle lobe and right upper lobe. As seen previously, small focus of gas within the right lower lobe suggesting probable cavitary pneumonia. There are also a few small foci of gas within the right
pleural effusion presumably related to infection. Right lung calcified granulomas, calcified hilar and mediastinal lymph nodes, sequela of previous granulomatous infection. Please see full dictation for additional detail. Film personally viewed.
--- NOTE | 2025-01-09 11:23 | W.PN.PUL3 ---
Today's Communication / Plan
-
Continue antibiotics per infectious disease
Today's chest x-ray 01/09/2025 without recommendation.
Remains afebrile.
No additional recommendation from the pulmonary perspective.
Sign off.
Patient will need to follow-up in the next 2 to 3 weeks in our office. Information left in the chart
Assessment
-
Patient is a very pleasant 24-year-old gentleman with history of drug use in the past, reportedly sober over the last 4 months who presents to emergency room from a rehab facility with worsening shortness of breath. Patient reports about 5 to 6
days of cough with yellowish expectoration. Reports some flulike symptoms prior to that. Does report history of some sick contacts at the facility where he lives. In the emergency room he also was noted to have some pleuritic discomfort on the
right side. He had a CT performed which was suggestive of necrotizing pneumonia in the right lower lobe along with small amount of gas within pleural effusion. Patient was admitted to the hospital and started on IV antibiotics. Pulmonary
consultation was requested for further input.
Right lower lobe necrotizing pneumonia due to group C streptococcus
Right sided empyema due to group C streptococcus - status post chest tubes x 2
- Right lateral 14 Fr chest tube ('A') placed by developer [employer] on 12/31/2024 --> removed on 01/06/[address] chest findings on 01/06
- Right posterior 8.5 Fr chest tube ('B') placed by IR on 01/03/2025 --> upsized to a 12 Fr on 01/06 --> removed on 01/07/2025 given zero output and minimal fluid seen on repeat CT Chest on 01/07
Leukocytosis
Anemia
History of methamphetamine use (abstinent since August 2024)
Tobacco use disorder
History of anxiety
Plan
Improved from the pulmonary perspective.
Remains off oxygen since 01/04 and is breathing comfortably
-
Incentive spirometry encouraged
Not bronchospastic on exam.
Nebulizers as needed
s/p prednisone 40 mg daily (given 12/30 - 01/03/2025)-no longer needed
Chest tube 'A' drained 5 cc overnight from 01/04 - 01/05/2025, and continued to have no output on 01/06. CT Chest from 01/06 showed no fluid seen at the distal tip of this chest tube --> tube was removed
- tPA/DNase was given x 3 (12/31 - 01/01) to the right lateral chest tube. (see separate update note from 01/06/2025).
- Ct Chest also shows continued small loculated fluid collection in the right base with chest tube within this collection. Given that this is a small 8.5 Japanese chest tube, recommend to upsize chest tube by IR, which was upsized to a 12 Fr on 01/06.
Unfortunately this chest tube also has no output. CT chest was repeated on 01/07 showing insignificant right-sided pleural fluid. chest tube was removed on 01/07.
- CT surgery remains on the case. He will be re-evaluated tomorrow (01/09) by CT surgery and if effusion increases or if he develops persistent fevers/chills, or worsening leukocytosis, then decortication would be likely best next step -we will defer
this final decision to CT surgery (Dr. Dotson)
Chest x-ray 01/09/2025: No fluid reaccumulation per my review.
Continue to follow-up chest x-rays on as-needed basis depending on clinical situation.
He seems to be responding to current antibiotics.
Afebrile-persistent leukocytosis but trending lower. Patient does not appear toxic
Cultures reviewed:
Sputum culture 12/30/2024-group C streptococcus
Pleural fluid 12/31/24-group C streptococcus
MRSA screen negative
Blood cultures negative
Influenza negative
Continue antibiotics as per ID-currently on Rocephin 2 g daily will need several weeks of IV antibiotics. Case management on the case.
Infectious disease correspondence reviewed and appreciated
Smoking cessation counseling
Nicotine patch
Nicorette gum
DVT prophylaxis-on Lovenox
Outpatient pulmonary follow-up including follow-up CT chest.
No additional recommendation from the pulmonary perspective at this point. I will sign off. Please call with questions.
Information is left in the chart for patient to follow-up with us in the next few weeks after discharge.
Data:
CT-PE 12/2024: 1. No large central pulmonary embolism. Evaluation of peripheral pulmonary arteries is limited by patient respiratory motion artifact.
2. Severe right lower lobe pneumonia, with areas of internal necrosis and cavitation.
3. Small associated right pleural effusion. Small amount of gas within the right pleural effusion.
4. Right hilar lymphadenopathy, likely reactive.
5. Evidence of prior granulomatous disease.
CT Chest without Contrast 01/06/2025:
1. Significantly improved complex right pleural effusion compared to prior CT dated 01/02/2025.
2. Small loculated collection of fluid and air is seen along the medial pleural surface as detailed above, significantly improved in size compared to prior study.
3. There is an ovoid collection of fluid and air within or adjacent to the consolidated right lower lobe. This is felt to most likely represent a locule of pleural fluid, however may also represent necrotic pneumonia.
4. Dense airspace consolidation within the right lower lobe, consistent with severe pneumonia.
5. Granulomatous lymph nodes within the mediastinum and right hilum. Small calcified granuloma within the right upper lobe.
Chest x-ray 01/02/25-small right pleural effusion improved, underlying pneumonia
CT chest 01/02/25-moderate loculated right pleural effusion improved from CT, moderate right lower lobe consolidation
Total time spent today was 41 minutes for this encounter. Time includes reviewing laboratory test/imaging results, reviewing pertinent medical records, obtaining and reviewing medical history, performing an appropriate exam, ordering medications,
tests and procedures. Time also includes documentation of this encounter, coordinating patient care and communicating with other healthcare professionals. Total time does not include separately billed tests performed on this date of service.
Subjective Data
-
Date of Service:
Date of Service: January 09, 2025
Chief Complaint: Pulmonary Follow Up and Dyspnea Follow Up
Subjective:
No pulmonary complaints.
Afebrile
Review of Systems
Cardiopulmonary: Dyspnea (none at rest)
GI: Abdominal Pain (n) and Nausea
Objective Data
Data Reviewed
Vital Signs / I&O / Oxygen:
Vital Signs
Temp Pulse Resp BP Pulse Ox
97.8 F 89 18 113/68 98
01/09/25 07:45 01/09/25 10:00 01/09/25 10:00 01/09/25 10:00 01/09/25 10:00
Intake and Output
01/08/25 01/09/25 01/10/25
06:59 06:59 06:59
Intake Total 960 / 960 480 / 480
Output Total 0 / 0
Balance 960 / 960 480 / 480
SaO2 98
Nasal Cannula flow liters per 3
minute
Physical Exam
General: Respiratory Distress (n), Comfortable, Chills (n) and Sweats (n)
HEENT: Normocephalic, Anicteric and Moist Mucous Membranes
Cardiovascular: S1-S2, Rub (n) and Peripheral Edema (n)
Respiratory: Wheeze (n), Crackles (Bilaterally (R >L)), Rhonchi (Bilaterally (R >L)), Non-Labored Respirations, Accessory Resp Muscle Use (n) and Other (Diminished breath sounds right base)
GI: Soft, Distended (Abdominal obesity), Non Tender and Normal Bowel Sounds
Neurology: AO x 3 and Tremors (n)
Skin: Warm, Dry, Cyanosis (n) and Jaundice (n)
Labs/Micro/Reports
Lab Data
01/08/25 04:52
01/04/25 03:45
Microbiology
12/31/24 11:13 Pleural Fluid Body Fluid Culture - Final
Group C Streptococcus
12/31/24 11:13 Pleural Fluid Gram Stain - Final
--- NOTE | 2025-01-09 11:42 | PTCARENOTE ---
Patient AOx3. Has flat affect and is anxious. Patient on RA with SpO2 greater than 92% VSS. NSR-sinus tach on monitor. R lung diminished throughout and L lung has crackles. Patient ambulates assist x1 to bathroom. Tolerating diet. Assist x1 when
OOB. Call moser within reach, bed in lowest position, and bed of wheels locked.
--- NOTE | 2025-01-09 12:18 | PTOTSP ---
PATIENT INDEPENDENT WITH MOBILITY ON LEVEL SURFACES AND ELEVATIONS REQUIRING NO FURTHER ACUTE CARE SKILLED P.T. AT THIS TIME. WILL DISCHARGE FROM P.T. SERVICES. RN AND PATIENT AWARE AND IN AGREEMENT.
[2025-01-09] MEDS: LOVENOX 40 MG SC (17:13)
[2025-01-09] MEDS: SEROQUEL 50 MG PO (20:22)
[2025-01-10] VITALS (7 sets, daily range): BP systolic 115–137; BP diastolic 69–88
--- NOTE | 2025-01-10 00:43 | PTCARENOTE ---
Pt received from previous RN. pt aaox3. sats 98% on RA. tele batteries changed. assessment as documented. Call light in reach.
--- NOTE | 2025-01-10 07:51 | W.PN.HOSP.TC ---
Today's Communication/Plan
-
Antibiotics. Discharge planning
Assessment / Plan
Assessment / Plan
Gen-AAOx3, NAD
HEENT-NC, AT, anicteric, clear oral mm
Neck-supple
CV-reg, no M, +S1/S2
Lungs-decreased breath sounds at the right base
Abd-soft, NT, ND
Ext-no edema
Musculoskeletal-no cyanosis, clubbing
Skin-warm and dry
Neuro-grossly non-focal
Psych-calm, cooperative
A/P:
Acute hypoxic respiratory insufficiency (POA) -due to sepsis, pneumonia, empyema. Oxygenation improved, now on room air.
Sepsis due to necrotizing community-acquired pneumonia pneumonia/empyema - Hemodynamically stable. Blood cultures negative. Sputum and pleural fluid culture with group C streptococcus.
Lactic acidosis resolved. Infectious disease input noted. Continue IV ceftriaxone per ID. Anticipate 6 weeks of antibiotics per ID.
Right lower lobe necrotizing pneumonia and empyema with near complete right lung collapse -repeat CT chest showed significantly improved complex right pleural effusion. Small loculated collection of fluid and air seen along the medial pleural
surface. Significantly improved compared to prior study. Still with dense airspace consolidation in the right lower lobe consistent with severe pneumonia. Granulomatous lymph nodes noted.
All chest tubes have now been removed.
Chest x-ray from last one showed no pneumothorax, stable appearance of the right lung base.
CT surgery recommends conservative management.
Of note patient was on prednisone 20 mg daily for 1 week prior to admission. He believes that it was started for wheezing and coughing in his rehab facility. Denies history of asthma.
Completed 5 days of prednisone 40 mg daily, last dose 01/03.
History of polysubstance abuse:
On atomoxetine and Requip
On Abilify
On Seroquel as needed
Tobacco dependence
On nicotine patch
Obesity due to excess calories
DVT prophylaxis:
Lovenox SQ
Full code
Dispo -will need to arrange for antibiotics on discharge an rehab that can take him. CM working on d/c dispo.
Anticipated Discharge: 24 - 48 hours
Subjective/Interval History
-
Date of Service: January 10, 2025
Denies any chest pain or shortness of breath. Afebrile
Objective Data
-
Labs:
Laboratory Results
01/10/25
06:00
WBC Pending
Hgb Pending
Hct Pending
Plt Count Pending
Sodium Pending
Potassium Pending
Chloride Pending
Carbon Dioxide Pending
BUN Pending
Creatinine Pending
Glucose Pending
Calcium Pending
Vital Signs:
Vital Signs
Temp Pulse Resp BP Pulse Ox
97.7 F 86 18 135/72 98
01/10/25 07:05 01/10/25 07:05 01/10/25 07:05 01/10/25 07:05 01/10/25 07:05
I&O
01/09/25 01/10/25 01/11/25
06:59 06:59 06:59
Intake Total 1440 / 1440
Balance 1440 / 1440
[2025-01-10 08:38] LABS: % Basophils 0.4 % (0-2); % Eosinophils 2.4 % (0-6); % Immature Granulocytes 3.8 % (0-0.5); % Lymphocytes 11.7 % (20.5-51.1); % Monocytes 7.2 % (1.7-9.3); % Neutrophils 74.5 % (42.2-75.2); Absolute Basophils 0.1 10^3/uL (0-0.2); Absolute Eosinophils 0.3 10^3/uL (0-0.7); Absolute Immature Granulocytes 0.5 10^3/uL (0-0.05); Absolute Lymphocytes 1.6 10^3/uL (1.2-3.4); Absolute Neutrophils 10.1 10^3/uL (1.4-6.5); Hematocrit 37.8 % (39.0-52.0); Hemoglobin 12.4 g/dL (13.0-18.0); Mean Corp Hgb Conc. 32.8 g/dL (33.0-37.0); Mean Corpuscular Hgb 28.2 pg (27.0-31.0); Mean Corpuscular Volume 86.1 fL (80.0-94.0); Mean Platelet Volume 9.2 fL (7.4-10.4); Nucleated Red Blood Cells % 0 % (-); Platelet Count 665 10^3/uL (130-400); Red Blood Cell Count 4.39 10^6/uL (4.70-6.10); Red Cell Dist. Width 12.8 % (11.5-14.5); White Blood Cell Count 13.5 10^3/uL (4.8-10.8)
[2025-01-10] MEDS: REQUIP 1 MG PO ×2 (09:16→21:06)
[2025-01-10] MEDS: MUCINEX 600 MG PO ×3 (09:16→21:06)
[2025-01-10] MEDS: ABILIFY 10 MG PO (09:16)
[2025-01-10] MEDS: COLACE PO ×2 (09:17→21:06)
[2025-01-10] MEDS: MIRALAX PO (09:18)
[2025-01-10] MEDS: NICODERM TRANSDERMAL 21 MG TRANSDERM (09:31)
[2025-01-10 10:54] LABS: Blood Urea Nitrogen 12 mg/dl (9-20); Calcium 9.4 mg/dl (8.4-10.2); Carbon Dioxide 26 mmol/L (22-30); Chloride 103 mmol/L (98-107); Estimated Creatinine Clearance > 125 ml/min; Glucose 95 mg/dl (70-99); Sodium 139 mmol/L (135-145); eGFR > 60.00
[2025-01-10] MEDS: STERILE WATER FOR INJECTION 20 ML IV (12:43)
[2025-01-10] MEDS: ROCEPHIN 2000 MG IV (12:44)
--- NOTE | 2025-01-10 13:59 | W.PN.ID1 ---
Date of Service
Date of Service: January 10, 2025
Today's Communication
Continue ceftriaxone.
Assessment / Plan
Right-sided pneumonia 2* Gp. C Streptococcus
Right empyema with growth of Gp C Streptococcus
Leukocytosis
Fever
Thrombocytosis
Hx methamphetamine use; clean
Recommendations:
Continue ceftriaxone 2gm IV q24h (d#12 abx).
Patient will need 6-week course of antibiotics; with at least 3 weeks being via the IV route, and then potential transition to oral antibiotics if remains stable.
Given Rocephin's once daily infusion, [facility] is an option.
Monitor white count and temperature curve.
Follow-up chest x-ray in 6 to 8 weeks.
����������������������������������������������������������
Chief Complaint
-: Pneumonia and Other (Right Empyema)
Subjective / Review of Systems
Review of Systems: No Fever, No Chills and No Cough
Vital Signs / Physical Exam
Vital Signs
Vital Signs
Temp Pulse Resp BP Pulse Ox
97.5 F 94 18 137/88 97
01/10/25 11:05 01/10/25 11:05 01/10/25 11:05 01/10/25 11:05 01/10/25 11:05
Physical Exam
Constitutional: No Acute Distress, Comfortable and Non-toxic
Eyes: Sclera Anicteric
Cardiovascular: S1/S2; Negative S3/S4
Pulmonary: Non Labored; Negative Wheezes or Rales
Gastrointestinal: Soft, Non Tender and Non Distended
Skin: Negative Rash or Jaundice
Neurological: Awake, Alert and Oriented
Psychological: Calm
Objective Data
Lab Data
Lab Results
01/10/25 07:59
01/10/25 10:00
Estimated Creat Clear > 125 ml/min 01/10/25 10:00
Lactic Acid 1.8 mmol/L (0.7-2.0) 12/30/24 04:59
Total Bilirubin Cancelled 12/30/24 06:00
AST Cancelled 12/30/24 06:00
ALT Cancelled 12/30/24 06:00
Alkaline Phosphatase Cancelled 12/30/24 06:00
Most recent labs reviewed.
Micro Results:
12/31/24 11:13 Body Fluid Culture - Final
Pleural Fluid Group C Streptococcus
Gram Stain - Final
12/30/24 02:57 Blood Culture - Final
Blood/Venous No Growth - Final Report
12/30/24 02:24 Blood Culture - Final
Blood/Venous No Growth - Final Report
12/30/24 09:55 Respiratory Culture - Final
Sputum Group C Streptococcus
Gram Stain - Final
12/30/24 04:58 MRSA Screen - Final
Nose No Methicillin Resistant Staphylococcus aureus isolated.
12/30/24 07:52 Legionella Urinary Antigen - Final
Urine Negative for Legionella pneumophila Serogroup 1 antigen.
A negative result does not rule out the possiblity of
Legionella infection due to other serogroups or species of
Legionella. Clinical correlation is recommended.
Streptococcus pneumoniae Antigen (M - Final
Negative for Streptococcus pneumoniae antigen.
A negative result does not exclude infection with
Streptococcus pneumoniae. Clinical correlation is
recommended.
12/30/24 02:24 Influenza Types A & B (DAVE) - Final
Nasal Swab Negative for Influenza A & B, NAAT
Negative results must be combined with clinical observations
and patient history.
Nucleic Acid Amplification test (NAAT)performed on the
[employer] platform.
Imaging:
01/02/2025 CXR (portable): Percutaneous right-sided chest tube in place. A small right pleural effusion is noted. Underlying pneumonia cannot be excluded. No pneumothorax noted. Dense nodule in the right upper lung field suggestive of a
granuloma. Please see full dictation for additional detail.
12/31/2024 CT chest w/o contrast : Near complete opacification of the right hemithorax related to combination of atelectatic changes and moderate effusion. There is complete atelectasis of the right lower lobe with opacified right lower lobar
bronchus. Near complete atelectasis of the right middle lobe and right upper lobe. As seen previously, small focus of gas within the right lower lobe suggesting probable cavitary pneumonia. There are also a few small foci of gas within the right
pleural effusion presumably related to infection. Right lung calcified granulomas, calcified hilar and mediastinal lymph nodes, sequela of previous granulomatous infection. Please see full dictation for additional detail. Film personally viewed.
Care Review
Plan reviewed with: Physician (Hospitalist)
--- NOTE | 2025-01-10 16:07 | CM ---
CM following for discharge to [facility] with IV abx daily at the Infusion center. RX sent to [facility] via fax - [phone]; phone [phone]. Karissa in [facility] confirmed that she received the Rx and awaiting a reaction form which is being sent
by ID office.
The [facility] will provide transportation to/from [facility]
Plan: Anticipated start of outpatient infusion is 01/12/2025; Appointment time pending; but requested morning appt at a 'standing time' if possible.
Jesús Leon NP can be reached at [phone] if any medical concerns need to be addressed.
[2025-01-10] MEDS: LOVENOX SC (17:31)
[2025-01-10] MEDS: SEROQUEL 50 MG PO (21:10)
[2025-01-11 08:00] VITALS: BP 128/86
--- NOTE | 2025-01-11 08:27 | W.PN.HOSP.TC ---
Today's Communication/Plan
-
Discharge planning
Assessment / Plan
Assessment / Plan
Gen-AAOx3, NAD
HEENT-NC, AT, anicteric, clear oral mm
Neck-supple
CV-reg, no M, +S1/S2
Lungs-decreased breath sounds at the right base
Abd-soft, NT, ND
Ext-no edema
Musculoskeletal-no cyanosis, clubbing
Skin-warm and dry
Neuro-grossly non-focal
Psych-calm, cooperative
A/P:
Acute hypoxic respiratory insufficiency (POA) -due to sepsis, pneumonia, empyema. Oxygenation improved, now on room air.
Sepsis due to necrotizing community-acquired pneumonia pneumonia/empyema - Hemodynamically stable. Blood cultures negative. Sputum and pleural fluid culture with group C streptococcus.
Lactic acidosis resolved. Infectious disease input noted. Continue IV ceftriaxone per ID. Anticipate 6 weeks of antibiotics per ID. region manager looking into [facility] option as recommended by ID.
Right lower lobe necrotizing pneumonia and empyema with near complete right lung collapse -repeat CT chest showed significantly improved complex right pleural effusion. Small loculated collection of fluid and air seen along the medial pleural
surface. Significantly improved compared to prior study. Still with dense airspace consolidation in the right lower lobe consistent with severe pneumonia. Granulomatous lymph nodes noted.
All chest tubes have now been removed.
Chest x-ray from last one showed no pneumothorax, stable appearance of the right lung base.
CT surgery recommends conservative management.
Of note patient was on prednisone 20 mg daily for 1 week prior to admission. He believes that it was started for wheezing and coughing in his rehab facility. Denies history of asthma.
Completed 5 days of prednisone 40 mg daily, last dose 01/03.
History of polysubstance abuse:
On atomoxetine and Requip
On Abilify
On Seroquel as needed
Tobacco dependence
On nicotine patch
Obesity due to excess calories
DVT prophylaxis:
Lovenox SQ
Full code
Anticipated Discharge: Within 24 hours
Subjective/Interval History
-
Date of Service: January 11, 2025
No new complaints
Objective Data
-
Vital Signs:
Vital Signs
Temp Pulse Resp BP Pulse Ox
98.2 F 98 16 120/69 95
01/10/25 23:05 01/10/25 23:05 01/10/25 23:05 01/10/25 23:05 01/10/25 23:05
I&O
01/10/25 01/11/25 01/12/25
06:59 06:59 06:59
Intake Total 1440 / 1440 2099
Balance 1440 / 1440 2099
[2025-01-11] MEDS: NICODERM TRANSDERMAL 21 MG TRANSDERM (08:49)
[2025-01-11] MEDS: REQUIP 1 MG PO ×2 (08:49→20:09)
[2025-01-11] MEDS: ABILIFY 10 MG PO (08:49)
[2025-01-11] MEDS: COLACE PO ×2 (08:52→20:09)
[2025-01-11] MEDS: MIRALAX PO (08:52)
--- NOTE | 2025-01-11 09:31 | W.PN.ID1 ---
Date of Service
Date of Service: January 11, 2025
Today's Communication
Continue antibiotics.
Assessment / Plan
Right-sided pneumonia 2* Gp. C Streptococcus
Right empyema with growth of Gp C Streptococcus
Leukocytosis
Fever
Thrombocytosis
Hx methamphetamine use; clean
Recommendations:
Continue ceftriaxone 2gm IV q24h (d#13 abx).
Patient will need 6-week course of antibiotics; with at least 3 weeks being via the IV route, and then potential transition to oral antibiotics if remains stable.
Given Rocephin's once daily infusion, [facility] is an option. [facility] order sheet has been completed and will hand deliver to them.
Monitor white count and temperature curve.
Follow-up chest x-ray in 6 to 8 weeks.
����������������������������������������������������������
Chief Complaint
-: Pneumonia and Other (Right Empyema)
Subjective / Review of Systems
Review of Systems: No Fever, No Chills, Cough and No Sputum Production
Vital Signs / Physical Exam
Vital Signs
Vital Signs
Temp Pulse Resp BP Pulse Ox
98.1 F 87 16 128/86 98
01/11/25 08:00 01/11/25 08:00 01/11/25 08:00 01/11/25 08:00 01/11/25 08:00
Physical Exam
Constitutional: No Acute Distress, Comfortable and Non-toxic
Eyes: Sclera Anicteric
Cardiovascular: S1/S2; Negative S3/S4
Pulmonary: Non Labored; Negative Wheezes or Rales
Gastrointestinal: Soft, Non Tender and Non Distended
Skin: Negative Rash or Jaundice
Neurological: Awake, Alert and Oriented
Psychological: Calm
Objective Data
Lab Data
Lab Results
01/10/25 07:59
01/10/25 10:00
Estimated Creat Clear > 125 ml/min 01/10/25 10:00
Lactic Acid 1.8 mmol/L (0.7-2.0) 12/30/24 04:59
Total Bilirubin Cancelled 12/30/24 06:00
AST Cancelled 12/30/24 06:00
ALT Cancelled 12/30/24 06:00
Alkaline Phosphatase Cancelled 12/30/24 06:00
Most recent labs reviewed.
Micro Results:
12/31/24 11:13 Body Fluid Culture - Final
Pleural Fluid Group C Streptococcus
Gram Stain - Final
12/30/24 02:57 Blood Culture - Final
Blood/Venous No Growth - Final Report
12/30/24 02:24 Blood Culture - Final
Blood/Venous No Growth - Final Report
12/30/24 09:55 Respiratory Culture - Final
Sputum Group C Streptococcus
Gram Stain - Final
12/30/24 04:58 MRSA Screen - Final
Nose No Methicillin Resistant Staphylococcus aureus isolated.
12/30/24 07:52 Legionella Urinary Antigen - Final
Urine Negative for Legionella pneumophila Serogroup 1 antigen.
A negative result does not rule out the possiblity of
Legionella infection due to other serogroups or species of
Legionella. Clinical correlation is recommended.
Streptococcus pneumoniae Antigen (M - Final
Negative for Streptococcus pneumoniae antigen.
A negative result does not exclude infection with
Streptococcus pneumoniae. Clinical correlation is
recommended.
12/30/24 02:24 Influenza Types A & B (DAVE) - Final
Nasal Swab Negative for Influenza A & B, NAAT
Negative results must be combined with clinical observations
and patient history.
Nucleic Acid Amplification test (NAAT)performed on the
[employer] platform.
Imaging:
01/02/2025 CXR (portable): Percutaneous right-sided chest tube in place. A small right pleural effusion is noted. Underlying pneumonia cannot be excluded. No pneumothorax noted. Dense nodule in the right upper lung field suggestive of a
granuloma. Please see full dictation for additional detail.
12/31/2024 CT chest w/o contrast : Near complete opacification of the right hemithorax related to combination of atelectatic changes and moderate effusion. There is complete atelectasis of the right lower lobe with opacified right lower lobar
bronchus. Near complete atelectasis of the right middle lobe and right upper lobe. As seen previously, small focus of gas within the right lower lobe suggesting probable cavitary pneumonia. There are also a few small foci of gas within the right
pleural effusion presumably related to infection. Right lung calcified granulomas, calcified hilar and mediastinal lymph nodes, sequela of previous granulomatous infection. Please see full dictation for additional detail. Film personally viewed.
[2025-01-11] MEDS: STERILE WATER FOR INJECTION 20 ML IV (12:30)
[2025-01-11] MEDS: ROCEPHIN 2000 MG IV (12:30)
[2025-01-11] MEDS: ATARAX 10 MG PO (13:39)
[2025-01-11 15:51] VITALS: BP 135/84
[2025-01-11] MEDS: LOVENOX SC (17:33)
--- NOTE | 2025-01-11 19:03 | VATNOTE ---
Per radiology report, PICC in good position with tip in the distal SVC. PCN notified PICC OK to use, to change all IV tubing prior to connecting to PICC line, and to remove all ipsilateral IVs.
--- NOTE | 2025-01-11 19:33 | PTCARENOTE ---
L arm and L hand IV sites removed at this time per VAT d/t PICC line placement.
[2025-01-11] MEDS: SEROQUEL 50 MG PO (20:09)
[2025-01-11] MEDS: MUCINEX 600 MG PO (20:09)
[2025-01-11 23:00] VITALS: BP 119/77
[2025-01-12 08:11] VITALS: BP 118/75
[2025-01-12] MEDS: ABILIFY 10 MG PO (08:15)
[2025-01-12] MEDS: MUCINEX 600 MG PO (08:16)
[2025-01-12] MEDS: REQUIP 1 MG PO (08:16)
[2025-01-12] MEDS: NICODERM TRANSDERMAL 21 MG TRANSDERM (08:16)
--- NOTE | 2025-01-12 08:55 | W.PN.HOSP.TC ---
Today's Communication/Plan
-
Discharge planning today
Assessment / Plan
Assessment / Plan
Gen-AAOx3, NAD
HEENT-NC, AT, anicteric, clear oral mm
Neck-supple
CV-reg, no M, +S1/S2
Lungs-decreased breath sounds at the right base
Abd-soft, NT, ND
Ext-no edema
Musculoskeletal-no cyanosis, clubbing
Skin-warm and dry
Neuro-grossly non-focal
Psych-calm, cooperative
A/P:
Acute hypoxic respiratory insufficiency (POA) -due to sepsis, pneumonia, empyema. Oxygenation improved, now on room air.
Sepsis due to necrotizing community-acquired pneumonia pneumonia/empyema - Hemodynamically stable. Blood cultures negative. Sputum and pleural fluid culture with group C streptococcus.
Lactic acidosis resolved. Infectious disease input noted. Continue IV ceftriaxone per ID. Anticipate 6 weeks of antibiotics per ID. alteration manager looking into [facility] option as recommended by ID.
Right lower lobe necrotizing pneumonia and empyema with near complete right lung collapse -repeat CT chest showed significantly improved complex right pleural effusion. Small loculated collection of fluid and air seen along the medial pleural
surface. Significantly improved compared to prior study. Still with dense airspace consolidation in the right lower lobe consistent with severe pneumonia. Granulomatous lymph nodes noted.
All chest tubes have now been removed.
Chest x-ray from last one showed no pneumothorax, stable appearance of the right lung base.
CT surgery recommends conservative management.
Of note patient was on prednisone 20 mg daily for 1 week prior to admission. He believes that it was started for wheezing and coughing in his rehab facility. Denies history of asthma.
Completed 5 days of prednisone 40 mg daily, last dose 01/03.
History of polysubstance abuse:
On atomoxetine and Requip
On Abilify
On Seroquel as needed
Tobacco dependence
On nicotine patch
Obesity due to excess calories
DVT prophylaxis:
Lovenox SQ
Full code
Anticipated Discharge: Today
Subjective/Interval History
-
Date of Service: January 12, 2025
No new complaints
Objective Data
-
Vital Signs:
Vital Signs
Temp Pulse Resp BP Pulse Ox
97.9 F 83 16 118/75 97
01/12/25 08:11 01/12/25 08:11 01/12/25 08:11 01/12/25 08:11 01/12/25 08:11
I&O
01/11/25 01/12/25 01/13/25
06:59 06:59 06:59
Intake Total 2099 570 / 570
Balance 2099 570 / 570
--- NOTE | 2025-01-12 08:55 | W.DCSUMMARY ---
Discharge Summary
Discharge Data
Date of Admission: 12/30/24
Date of Discharge: 01/12/25
-
Pending Results: No
Hospital Course
Patient 25 years old male with history of polysubstance abuse disorder came into the hospital and found to have severe necrotizing pneumonia with empyema. He was admitted to ICU and had a prolonged hospital course. Pulmonary/college admissions counselor evaluated
patient and subsequently ID and CT surgery. Patient was treated with IV antibiotics and supportive care. He also had chest tubes in place and chest tubes were managed by pulmonary and CT surgery and was able to discontinue chest tubes. Pneumonia
and empyema due to group C Streptococcus. ID discussed with manager rn case and also [facility] has been arranged. ID recommended 6-week course of antibiotics. Otherwise, patient hemodynamically stable and afebrile. He is stable for discharge.
Discharge duration: 35 minutes
Discharge Plan
-
Patient Disposition: Home (Routine Discharge)
Discharge Diagnosis/Procedures: Sepsis due to necrotizing pneumonia and empyema. Polysubstance use disorder.
Diet: Low Cholesterol
Activity: As tolerated
Blood Work: Please PCP to order CBC, BMP within 1 week
Referrals:
Jamal Ventura MD [Active] - in two to three weeks
( pneumonia/empyema/tobacco addiction
Eventual PFTs)
Jesús Leon CRNP [Family Provider] - in less than 1 week
Prescriptions:
New
hydroxyzine HCl 10 mg Tablet
10 mg PO BIDPRN PRN (Reason: anxiety) 5 Days Qty: 0 0RF
ceftriaxone 2 gram Recon Soln
2,000 mg IV Q24H 21 Days Qty: 0 0RF
Continued
ropinirole 1 mg Tablet
1 mg PO BID
aripiprazole 10 mg Tablet
10 mg PO DAILY
quetiapine [Seroquel] 50 mg Tablet
50 mg PO HS PRN (Reason: insomnia)
melatonin 10 mg Tablet
10 mg PO HS PRN (Reason: sleep)
Discontinued
naltrexone 50 mg Tablet
50 mg PO DAILY
prednisone 20 mg Tablet
20 mg PO DAILY
benzonatate 100 mg Capsule
100 mg PO TID PRN (Reason: cough)
atomoxetine [Strattera] 40 mg Capsule
40 mg PO DAILY
Discharge Orders:
Discharge Patient (As Directed); Ordered 01/12/25
Ordered By: Tom Reyna
Discharge Date and Time
Discharge Date/Time: 01/12/25 13:09
Print Language: URUGUAYAN
--- NOTE | 2025-01-12 09:05 | CM ---
Martin is anxious to be discharged back to the recovery house. Outpatient infusion arranged and [facility] will provide transportation. Martin aware that on Thursday and Thursday he will need to go to the ED for his infusion; 7am arrival.
Plan: Pt to return to [facility] via facility transportation. [facility] infusion at [facility] to begin the day after discharge.
Report: Jesús Leon NP can be reached at [phone]
[2025-01-12] MEDS: MIRALAX PO (10:47)
[2025-01-12] MEDS: COLACE PO (10:47)
[2025-01-12 12:17] VITALS: BP 122/75
[2025-01-12] MEDS: ROCEPHIN 2000 MG IV (12:19)
[2025-01-12] MEDS: STERILE WATER FOR INJECTION 20 ML IV (12:20)
--- NOTE | 2025-01-12 12:38 | W.PN.ID1 ---
Date of Service
Date of Service: January 12, 2025
Today's Communication
Continue abx.
Assessment / Plan
Right-sided pneumonia 2* Gp. C Streptococcus
Right empyema with growth of Gp C Streptococcus
Leukocytosis
Fever
Thrombocytosis
Hx methamphetamine use; clean
Recommendations:
Continue ceftriaxone 2gm IV q24h (d#14 abx).
Patient will need 6-week course of antibiotics; with at least 3 weeks being via the IV route, and then potential transition to oral antibiotics if remains stable.
Given Rocephin's once daily infusion, [facility] is an option. [facility] order sheet has been completed and will hand deliver to them.
Monitor white count and temperature curve.
Follow-up chest x-ray in 6 to 8 weeks.
����������������������������������������������������������
Chief Complaint
-: Pneumonia and Other (Right Empyema)
Subjective / Review of Systems
Review of Systems: No Fever, No Chills and No Cough
Vital Signs / Physical Exam
Vital Signs
Vital Signs
Temp Pulse Resp BP Pulse Ox
99.1 F 88 18 122/75 97
01/12/25 12:17 01/12/25 12:17 01/12/25 12:17 01/12/25 12:17 01/12/25 12:17
Physical Exam
Constitutional: No Acute Distress, Comfortable and Non-toxic
Eyes: Sclera Anicteric
Cardiovascular: S1/S2; Negative S3/S4
Pulmonary: Non Labored; Negative Wheezes or Rales
Gastrointestinal: Soft, Non Tender and Non Distended
Skin: Negative Rash or Jaundice
Neurological: Awake, Alert and Oriented
Psychological: Calm
Lines: PICC ([facility]UE)
Objective Data
Lab Data
Lab Results
01/10/25 07:59
01/10/25 10:00
Estimated Creat Clear > 125 ml/min 01/10/25 10:00
Lactic Acid 1.8 mmol/L (0.7-2.0) 12/30/24 04:59
Total Bilirubin Cancelled 12/30/24 06:00
AST Cancelled 12/30/24 06:00
ALT Cancelled 12/30/24 06:00
Alkaline Phosphatase Cancelled 12/30/24 06:00
Most recent labs reviewed.
Micro Results:
12/31/24 11:13 Body Fluid Culture - Final
Pleural Fluid Group C Streptococcus
Gram Stain - Final
12/30/24 02:57 Blood Culture - Final
Blood/Venous No Growth - Final Report
12/30/24 02:24 Blood Culture - Final
Blood/Venous No Growth - Final Report
12/30/24 09:55 Respiratory Culture - Final
Sputum Group C Streptococcus
Gram Stain - Final
12/30/24 04:58 MRSA Screen - Final
Nose No Methicillin Resistant Staphylococcus aureus isolated.
12/30/24 07:52 Legionella Urinary Antigen - Final
Urine Negative for Legionella pneumophila Serogroup 1 antigen.
A negative result does not rule out the possiblity of
Legionella infection due to other serogroups or species of
Legionella. Clinical correlation is recommended.
Streptococcus pneumoniae Antigen (M - Final
Negative for Streptococcus pneumoniae antigen.
A negative result does not exclude infection with
Streptococcus pneumoniae. Clinical correlation is
recommended.
12/30/24 02:24 Influenza Types A & B (DAVE) - Final
Nasal Swab Negative for Influenza A & B, NAAT
Negative results must be combined with clinical observations
and patient history.
Nucleic Acid Amplification test (NAAT)performed on the
[employer] platform.
Imaging:
01/02/2025 CXR (portable): Percutaneous right-sided chest tube in place. A small right pleural effusion is noted. Underlying pneumonia cannot be excluded. No pneumothorax noted. Dense nodule in the right upper lung field suggestive of a
granuloma. Please see full dictation for additional detail.
12/31/2024 CT chest w/o contrast : Near complete opacification of the right hemithorax related to combination of atelectatic changes and moderate effusion. There is complete atelectasis of the right lower lobe with opacified right lower lobar
bronchus. Near complete atelectasis of the right middle lobe and right upper lobe. As seen previously, small focus of gas within the right lower lobe suggesting probable cavitary pneumonia. There are also a few small foci of gas within the right
pleural effusion presumably related to infection. Right lung calcified granulomas, calcified hilar and mediastinal lymph nodes, sequela of previous granulomatous infection. Please see full dictation for additional detail. Film personally viewed.
== END 2025-01-12 13:09 | disposition home or self-care (01) | DRG 871 ==
LOC: 3 WEST ACU 03:54
PROVIDERS: Hospitalist; Nurse Practitioner Family; Radiology Diagnostic Radiology; Radiology Vascular & Interventional Radiology; Registered Nurse; ADMITTING PHYSICIAN Internal Medicine; ATTENDING PHYSICIAN Hospitalist; CONSULT PHYSICIAN Internal Medicine; CONSULT PHYSICIAN Internal Medicine Infectious Disease; CONSULT PHYSICIAN Thoracic Surgery (Cardiothoracic Vascular Surgery); EMERGENCY PHYSICIAN Student in an Organized Health Care Education/Training Program; FAMILY PHYSICIAN Nurse Practitioner Acute Care
PROC: 0W9930Z Drainage of Right Pleural Cavity with Drainage Device, Percutaneous Approach (ICD-10-PCS; 2024-12-31)
PROC: 3E0L317 Introduction of Other Thrombolytic into Pleural Cavity, Percutaneous Approach (ICD-10-PCS; 2025-01-04)
PROC: 3E0L3GC Introduction of Other Therapeutic Substance into Pleural Cavity, Percutaneous Approach (ICD-10-PCS; 2025-01-04)
PROC: 0WP9X0Z Removal of Drainage Device from Right Pleural Cavity, External Approach (ICD-10-PCS; 2025-01-06)
PROC: 02HV33Z Insertion of Infusion Device into Superior Vena Cava, Percutaneous Approach (ICD-10-PCS; 2025-01-11)
DX: A40.8 Other streptococcal sepsis (principal); J18.9 Pneumonia, unspecified organism; J85.0 Gangrene and necrosis of lung; F15.20 Other stimulant dependence, uncomplicated; J93.9 Pneumothorax, unspecified; J91.8 Pleural effusion in other conditions classified elsewhere; E87.20 Acidosis, unspecified; J98.19 Other pulmonary collapse; F17.210 Nicotine dependence, cigarettes, uncomplicated; R74.01 Elevation of levels of liver transaminase levels; R06.89 Other abnormalities of breathing; E66.09 Other obesity due to excess calories; F41.9 Anxiety disorder, unspecified; D64.9 Anemia, unspecified; D75.839 Thrombocytosis, unspecified; R59.0 Localized enlarged lymph nodes; R09.02 Hypoxemia; Z82.49 Family history of ischemic heart disease and other diseases of the circulatory system; Z11.52 Encounter for screening for COVID-19; Z68.32 Body mass index [BMI] 32.0-32.9, adult
CPT/HCPCS: 32557; 32561; 71045; 71250; 71275; 74177; 76604; 76700; 80048; 80053; 80061; 80202; 80306; 80307; 81003; 81015; 82945; 83605; 83615; 83690; 83986; 84155; 84157; 84478; 84484; 85025; 85027; 87015; 87040; 87070; 87077; 87147; 87205; 87389; 87449; 87502; 87811; 87899; 89051; 93005; 96361; 96365; 96375; 97116; 97163; 97530; 99152; 99291; C1729; C1769; J2997; Q9967

== ENCOUNTER 2025-01-20 09:54 | Outpatient (RCR) | payer OTHER, SELFPAY ==
[2025-01-13] MEDS: ROCEPHIN 70 MG IV (11:11)
[2025-01-13 11:30] VITALS: BP 117/80
[2025-01-14 07:15] VITALS: BP 128/70
[2025-01-14] MEDS: ROCEPHIN 70 MG IV (07:25)
[2025-01-15 08:30] VITALS: BP 131/80
[2025-01-15] MEDS: ROCEPHIN 70 MG IV (08:30)
[2025-01-16 10:20] VITALS: BP 137/76
[2025-01-16] MEDS: ROCEPHIN 70 MG IV (10:30)
[2025-01-16 10:34] LABS: % Basophils 0.5 % (0-2); % Eosinophils 4.7 % (0-6); % Immature Granulocytes 1.7 % (0-0.5); % Lymphocytes 29.1 % (20.5-51.1); % Monocytes 8.4 % (1.7-9.3); % Neutrophils 55.6 % (42.2-75.2); Absolute Eosinophils 0.4 10^3/uL (0-0.7); Absolute Immature Granulocytes 0.1 10^3/uL (0-0.05); Absolute Lymphocytes 2.2 10^3/uL (1.2-3.4); Absolute Monocytes 0.6 10^3/uL (0.1-0.6); Absolute Neutrophils 4.2 10^3/uL (1.4-6.5); Hematocrit 40.9 % (39.0-52.0); Hemoglobin 13.4 g/dL (13.0-18.0); Mean Corp Hgb Conc. 32.8 g/dL (33.0-37.0); Mean Corpuscular Hgb 28.2 pg (27.0-31.0); Mean Corpuscular Volume 85.9 fL (80.0-94.0); Mean Platelet Volume 8.7 fL (7.4-10.4); Platelet Count 580 10^3/uL (130-400); Red Blood Cell Count 4.76 10^6/uL (4.70-6.10); Red Cell Dist. Width 12.7 % (11.5-14.5); White Blood Cell Count 7.6 10^3/uL (4.8-10.8)
[2025-01-16 11:08] LABS: ALT (SGPT) 90 U/L (0-50); AST (SGOT) 26 U/L (17-59); Alkaline Phosphatase 136 U/L (38-126); Blood Urea Nitrogen 11 mg/dl (9-20); Calcium 9.7 mg/dl (8.4-10.2); Carbon Dioxide 28 mmol/L (22-30); Chloride 106 mmol/L (98-107); Glucose 99 mg/dl (70-99); Potassium 4.8 mmol/L (3.5-5.1); Sodium 145 mmol/L (135-145); Total Bilirubin 0.4 mg/dl (0.2-1.3); Total Protein 7.3 g/dl (6.3-8.2); eGFR > 60.00
[2025-01-17 10:05] VITALS: BP 124/83
[2025-01-17] MEDS: ROCEPHIN 70 MG IV (10:19)
[2025-01-18 10:15] VITALS: BP 120/76
[2025-01-18] MEDS: ROCEPHIN 70 MG IV (10:26)
[2025-01-19 10:15] VITALS: BP 127/83
[2025-01-19] MEDS: ROCEPHIN 70 MG IV (10:33)
[2025-01-20 10:00] VITALS: BP 126/83
[2025-01-20] MEDS: ROCEPHIN 70 MG IV (10:28)
--- NOTE | 2025-01-20 11:20 | PTCARENOTE ---
Pt's right dl picc line d/c per md order, tcl of 45cm retrieved, pt tolerated well, no active bleeding noted, pressure dressing applied, pt d/c to home.
== END 2025-01-23 08:55 | disposition home or self-care (01) ==
LOC: OID 09:54
PROVIDERS: ATTENDING PHYSICIAN Internal Medicine Infectious Disease
DX: J86.9 Pyothorax without fistula (principal); J85.1 Abscess of lung with pneumonia; B95.4 Other streptococcus as the cause of diseases classified elsewhere
CPT/HCPCS: 36591; 80053; 85025; 96365

== ENCOUNTER → 2025-03-08 13:02 | Outpatient (REF) | payer OTHER, SELFPAY | LOC: RAD 13:02 | PROVIDERS: ATTENDING PHYSICIAN Nurse Practitioner Adult Health | DX: J85.0 Gangrene and necrosis of lung (principal); J86.9 Pyothorax without fistula; J15.4 Pneumonia due to other streptococci | CPT/HCPCS: 71046 ==